=== PATIENT | female | born 1995 | race Caucasian/White ===

== ENCOUNTER 2017-05-14 17:29 | Emergency (ER) | payer OTHER, SELFPAY | END 2017-05-14 18:20 | disposition home or self-care (01) | PROVIDERS: Emergency Provider Emergency Medicine; Family Provider Nurse Practitioner Family; Visit Provider Emergency Medicine | DX: K64.4 Residual hemorrhoidal skin tags (principal); E11.9 Type 2 diabetes mellitus without complications; Z79.4 Long term (current) use of insulin; F17.210 Nicotine dependence, cigarettes, uncomplicated | CPT/HCPCS: 99282 ==

== ENCOUNTER 2017-08-12 13:29 | Emergency (ER) | payer OTHER, SELFPAY ==
[2017-08-12 13:42] VITALS: BP 135/84; PULSE 84; RESP 16; TEMP 37; O2SAT 100; BMI 25.9
--- NOTE | 2017-08-12 13:57 | PC.NURSE ---
glucose is 270
[2017-08-12 14:01] LABS: POC Glucose,Bedside 270 mg/dL (70-110)
--- NOTE | 2017-08-12 14:10 | HMH.EDOD ---
ED Disposition Clinical Impression: Overdose Qualifiers: Encounter type: initial encounter Injury intent: accidental or unintentional Qualified Code(s): T50.901A - Poisoning by unspecified drugs, medicaments and biological substances, accidental (unintentional), initial encounter Disposition: Home, Self-Care Condition on Discharge: Good Referrals: Sebastian Aden MD [Primary Care Provider] - Time of Disposition: 14:48 - Critical Care Critical Care Time: No Attestation: On , the high probability of a clinically significant, sudden or life threatening deterioration of the following system(s) required my full and direct attention, intervention and personal management. The time I documented below is in addition to time spent performing reported procedures but includes the following listed in this critical care notation. Medical Decision Making - Medical Records Medical records reviewed: Yes: I reviewed the patient's medical records. - Akash Inquiry Pt receiving controlled substance: No Akash was queried for this patient: No Vital Signs: 08/12/17 13:42 Temperature 98.6 F Temperature Source Oral Pulse Rate [Right Radial] 84 Respiratory Rate 16 Blood Pressure [Right Arm] 135/84 Blood Pressure Mean [Right Arm] 101 Blood Pressure Source [Right Arm] Manual Cuff/ Doppler Blood Pressure Position [Right Arm] Supine 02 Sat by Pulse Oximetry 100 Oxygen Delivery Method Room Air - Lab Data Lab Results 08/12/17 13:53: POC Glucose 270 Medical Decision Narrative: elevated BS likely due to stimulation of adrenals by stackers, as well as poorly controlled DM Overdose HPI - General Chief Complaint: Overdose Stated Complaint: took stackers Time Seen by Provider: 08/12/17 13:40 Mode of Arrival: Ambulatory Limitations: No Limitations Description of Symptoms (Recalled from ER Triage Doc. by RN): Stayed up all night and had to work today- took too many stackers. . pt reports taking 3 stackers this morning at 1000. Reports dizziness, lightheadedness, fast heartbeat about 1100. denies any symptoms at this time - History of Present Illness complaint: intentional overdose Onset (ago): hour(s) (4) Timing confirmed by: other Intent: other (stimulsation) Context: Intentional Overdose: work problems Treatments Prior to Arrival: none - Related Data Home Medications Medication Instructions Recorded Confirmed folic acid 400 mcg tablet 1 mg PO ONCE 07/13/17 08/12/17 insulin glargine (U-100) 100 10 unit SUB-Q QHS 02/14/18 03/16/18 unit/mL (3 mL) subcutaneous pen insulin lispro (U-100) 100 unit/mL 5 unit SUB-Q QACDINNER 07/13/17 08/12/17 subcutaneous solution multivitamin with minerals tablet 1 tab PO ONCE 07/13/17 08/12/17 Allergies Allergy/AdvReac Type Severity Reaction Status Date / Time No Known Allergies Allergy Verified 08/10/17 09:25 [facility] History I have reviewed the patient's past medical history: Yes Medical History: Reports:: Diabetes Mellitus Type 1 Denies:: Cancer, MRSA Laterality Cases: Bilateral: Tonsillectomy, Other Amputation: No Fractures: No Comment: Nexplanon Removal - Social History Smoking Status: Current every day smoker Tobacco Type: cigarettes # Packs/Day (cigarettes): 1 Alcohol Intake: never - 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ses thoughts of harming self/others: None Suicide Plan Description: No Plan Family Hx:: Diabetes ROS Obtained: Yes All systems reviewed & no additional complaints - Constitutional Constitutional: Reports system reviewed and no additional complaints, except as docu - Eyes Eyes: Reports system reviewed and no additional complaints, except as docu - ENT Ears, Nose, Mouth, and Throat: Reports system reviewed and no additional complaints, except as docu - Cardiovascular Cardiovascular: Reports system reviewed and no additional complaints, except as docu - Respiratory Respiratory: Yes system reviewed and no additional complaints, ex
--- NOTE | 2017-08-12 14:13 | ED_ITS ---
ED Disposition Clinical Impression: Overdose Qualifiers: Encounter type: initial encounter Injury intent: accidental or unintentional Qualified Code(s): T50.901A - Poisoning by unspecified drugs, medicaments and biological substances, accidental (unintentional), initial encounter Disposition: Home, Self-Care Condition on Discharge: Good Referrals: Sebastian Aden MD [Primary Care Provider] - Time of Disposition: 14:48 - Critical Care Critical Care Time: No Attestation: On , the high probability of a clinically significant, sudden or life threatening deterioration of the following system(s) required my full and direct attention, intervention and personal management. The time I documented below is in addition to time spent performing reported procedures but includes the following listed in this critical care notation. Medical Decision Making - Medical Records Medical records reviewed: Yes: I reviewed the patient's medical records. - Akash Inquiry Pt receiving controlled substance: No Akash was queried for this patient: No Vital Signs: 08/12/17 13:42 Temperature 98.6 F Temperature Source Oral Pulse Rate [Right Radial] 84 Respiratory Rate 16 Blood Pressure [Right Arm] 135/84 Blood Pressure Mean [Right Arm] 101 Blood Pressure Source [Right Arm] Manual Cuff/ Doppler Blood Pressure Position [Right Arm] Supine 02 Sat by Pulse Oximetry 100 Oxygen Delivery Method Room Air - Lab Data Lab Results 08/12/17 13:53: POC Glucose 270 Medical Decision Narrative: elevated BS likely due to stimulation of adrenals by stackers, as well as poorly controlled DM Overdose HPI - General Chief Complaint: Overdose Stated Complaint: took stackers Time Seen by Provider: 08/12/17 13:40 Mode of Arrival: Ambulatory Limitations: No Limitations Description of Symptoms (Recalled from ER Triage Doc. by RN): Stayed up all night and had to work today- took too many stackers. . pt reports taking 3 stackers this morning at 1000. Reports dizziness, lightheadedness, fast heartbeat about 1100. denies any symptoms at this time - History of Present Illness complaint: intentional overdose Onset (ago): hour(s) (4) Timing confirmed by: other Intent: other (stimulsation) Context: Intentional Overdose: work problems Treatments Prior to Arrival: none - Related Data Home Medications Medication Instructions Recorded Confirmed folic acid 400 mcg tablet 1 mg PO ONCE 07/13/17 08/12/17 insulin glargine (U-100) 100 10 unit SUB-Q QHS 02/14/18 03/16/18 unit/mL (3 mL) subcutaneous pen insulin lispro (U-100) 100 unit/mL 5 unit SUB-Q QACDINNER 07/13/17 08/12/17 subcutaneous solution multivitamin with minerals tablet 1 tab PO ONCE 07/13/17 08/12/17 Allergies Allergy/AdvReac Type Severity Reaction Status Date / Time No Known Allergies Allergy Verified 08/10/17 09:25 [facility] History I have reviewed the patient's past medical history: Yes Medical History: Reports:: Diabetes Mellitus Type 1 Denies:: Cancer, MRSA Laterality Cases: Bilateral: Tonsillectomy, Other Amputation: No Fractures: No Comment: Nexplanon Removal - Social History Smoking Status: Current every day smoker Tobacco Type: cigarettes # Packs/Day (cigarettes): 1 Alcohol Intake: never - 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
[2017-08-12 14:55] VITALS: BP 128/73; PULSE 86; RESP 16; TEMP 36.8; O2SAT 97
== END 2017-08-12 14:56 | disposition home or self-care (01) ==
PROVIDERS: Emergency Provider Family Medicine; Family Provider Nurse Practitioner Family; PCP Emergency Medicine
DX: T50.901A Poisoning by unspecified drugs, medicaments and biological substances, accidental (unintentional), initial encounter (principal); E10.9 Type 1 diabetes mellitus without complications; Z79.4 Long term (current) use of insulin; F17.210 Nicotine dependence, cigarettes, uncomplicated
CPT/HCPCS: 82962; 99281

== ENCOUNTER → 2019-07-19 15:46 | Outpatient (CLI) | payer OTHER, SELFPAY ==
--- NOTE | 2019-07-19 16:05 | ECG_ITS ---
APPROVED REPORT Exam: Resting ECG HR:79 bpm ECG Measurements Heart Rate 79 AXES VA 144 P 77 QRSd 90 QRS 93 QT 382 T 53 QTc 438 <Conclusion> Normal sinus rhythm Rightward axis Late R-wave progression, unchanged from prior, abnormal EKG Electronically signed by : Keegan Giles, 07/20/2019 07:58:40
[2019-07-19 16:22] LABS: Basophils # 0.2 K/mm3 (0-0.2); Eosinophils # 0.2 K/mm3 (0.0-0.4); Hematocrit 49.8 % (37.0-47.0); Hemoglobin 16.4 g/dL (12.2-16.2); Lymphocytes # 2.9 K/mm3 (0.7-4.5); Lymphocytes % 33.6 % (10-50); Mean Corpuscular HGB Conc 32.9 g/dL (31.8-35.4); Mean Corpuscular Hemoglobin 29.7 pg (27.0-31.2); Mean Corpuscular Volume 90.2 fl (81-99); Mean Platelet Volume 7.2 fl (7.4-10.4); Monocytes # 0.4 K/mm3 (0.1-1.0); Monocytes % 4.2 % (1.7-9.3); Neutrophils # 4.9 K/mm3 (1.8-7.8); Neutrophils % 58.2 % (37.0-80.0); Platelet Count 368 K/mm3 (142-424); Red Blood Count 5.53 M/mm3 (4.20-5.40); Red Cell Distribution Width 11.6 % (11.5-17.5); White Blood Count 8.5 K/mm3 (4.8-10.8)
[2019-07-19 17:29] LABS: Alanine Aminotransferase 13 U/L (12-78); Albumin Level 4.8 g/dl (3.5-5.0); Albumin/Globulin Ratio 1.4 (1.1-1.8); Alkaline Phosphatase 61 U/L (38-126); Anion Gap 14.5 mEq/L (5-15); Aspartate Amino Transferase 17 U/L (14-36); Bilirubin,Total 0.5 mg/dl (0.2-1.3); Blood Urea Nitrogen 11 mg/dl (7-17); Calcium 9.7 mg/dl (8.4-10.2); Carbon Dioxide 28 mmol/L (22.0-30.0); Chloride 98 mmol/L (98-107); Chol/HDL Ratio 3.4 (1-3.5); Cholesterol 162 mg/dl (140-200); Estimated Glomerular Filt Rate 200 ml/min (>60); GFR (African American) 242 ML/MIN (>60); Globulin 3.5 g/dL (1.3-3.2); Glucose 255 mg/dl (74-100); HDL Cholesterol 47 mg/dl (40-60); Potassium 3.5 mmoL/L (3.5-5.1); Sodium 137 mmol/L (136-145); Total Protein,Serum 8.3 g/dl (6.3-8.2); Triglycerides 59 mg/dl (30-150); VLDL Cholesterol 12 mg/dL (0-40)
[2019-07-19 17:43] LABS: Direct LDL Cholesterol 109.32 mg/dL (100-129)
[2019-07-19 17:48] LABS: T4 (Thyroxine) 10.9 ug/dl (5.53-11.0)
[2019-07-19 19:52] LABS: Hemoglobin A1C 8.9 % (4.0-6.0)
[2019-07-21 08:09] LABS: Creatinine, Urine 150.3 mg/dL (Not Estab.); Microalbumin, Urine 21.3 ug/mL (Not Estab.)
[2019-07-21 08:45] LABS: Vitamin D 25 Hydroxy 15.7 ng/mL (30.0-100.0)
== END ==
PROVIDERS: Visit Provider Nurse Practitioner Family
DX: Z01.818 Encounter for other preprocedural examination (principal); E11.9 Type 2 diabetes mellitus without complications; E55.9 Vitamin D deficiency, unspecified; Z79.4 Long term (current) use of insulin
CPT/HCPCS: 36415; 80053; 80061; 82043; 82570; 82652; 83036; 84436; 84443; 85025; 93005

== ENCOUNTER 2019-09-13 16:22 | Emergency (ER) | payer OTHER, SELFPAY ==
[2019-09-13 16:22] VITALS: BP 130/70; PULSE 102; RESP 16; TEMP 37.1; O2SAT 98; BMI 24.0
[2019-09-13 16:51] LABS: Microscopic, Urine URINE MICROSCOPIC (MICROSCOPIC)
[2019-09-13 16:53] LABS: Appearance,Urine CLEAR (Clear); Blood, Urine 3+ (Negative); Color,Urine YELLOW (Yellow); Glucose,Urine (UA) 2+ (Negative); Ketones,Urine 3+ (Negative); Leukocyte Esterase,Urine Negative (Negative); Nitrate,Urine Negative (Negative); Protein,Urine 1+ (Negative); Specific Gravity, Urine >= 1.030 (1.005-1.030); Urobilinogen,Urine 0.2 EU/dl (0.2)
[2019-09-13 16:54] LABS: Chloride 99 mmol/L (98-107); Potassium 3.3 mmoL/L (3.5-5.1); Sodium 138 mmol/L (136-145)
[2019-09-13 16:55] LABS: Urine Pregnancy, HCG Qual. Negative (Negative)
[2019-09-13 16:57] LABS: Alanine Aminotransferase 18 U/L (12-78); Albumin Level 5.1 g/dl (3.5-5.0); Albumin/Globulin Ratio 1.2 (1.1-1.8); Alkaline Phosphatase 69 U/L (38-126); Anion Gap 14.3 mEq/L (5-15); Aspartate Amino Transferase 24 U/L (14-36); Basophils # 0.1 K/mm3 (0-0.2); Basophils % 0.7 % (0.1-2.0); Bilirubin,Total 0.7 mg/dl (0.2-1.3); Blood Urea Nitrogen 15 mg/dl (7-17); Carbon Dioxide 28 mmol/L (22.0-30.0); Creatinine Clearance Estimated 177 mL/min (50-200); Eosinophils # 0.1 K/mm3 (0.0-0.4); Eosinophils % 0.4 % (0.1-12.0); Estimated Glomerular Filt Rate 154 ml/min (>60); GFR (African American) 187 ML/MIN (>60); Globulin 4.1 g/dL (1.3-3.2); Hematocrit 47.3 % (37.0-47.0); Hemoglobin 15.9 g/dL (12.2-16.2); Lymphocytes # 2.3 K/mm3 (0.7-4.5); Lymphocytes % 17.7 % (10-50); Mean Corpuscular HGB Conc 33.7 g/dL (31.8-35.4); Mean Corpuscular Hemoglobin 29.8 pg (27.0-31.2); Mean Corpuscular Volume 88.4 fl (81-99); Mean Platelet Volume 7.5 fl (7.4-10.4); Monocytes # 0.7 K/mm3 (0.1-1.0); Monocytes % 5.3 % (1.7-9.3); Neutrophils # 9.9 K/mm3 (1.8-7.8); Neutrophils % 75.9 % (37.0-80.0); Platelet Count 359 K/mm3 (142-424); Red Blood Count 5.35 M/mm3 (4.20-5.40); Red Cell Distribution Width 11.5 % (11.5-17.5); Total Protein,Serum 9.2 g/dl (6.3-8.2)
[2019-09-13 16:58] LABS: Calcium 9.9 mg/dl (8.4-10.2); Glucose 211 mg/dl (74-100)
[2019-09-13 17:00] LABS: Acetone, Serum (Rapid) Small (None Detect); Bilirubin,Urine Negative (Negative); RBC,Urine 50-100 #/hpf (0-3)
[2019-09-13 17:01] LABS: Amorphous Sediment,Urine 2+ /lpf; Amylase 40 U/L (30-110); Lipase 10 U/L (23-300)
[2019-09-13 17:07] LABS: Benzodiazepines Screen,Urine Negative ng/ml (<200)
[2019-09-13 17:08] LABS: Barbiturates Screen,Urine Negative ng/ml (<200)
[2019-09-13 17:11] LABS: Cannabinoid Screen,Urine Positive ng/ml (<50); Cocaine Screen,Urine Negative ng/ml (<300)
[2019-09-13 17:12] LABS: Methadone Screen,Urine Negative ng/ml (<300); Opiate Screen,Urine Negative ng/ml (<300)
[2019-09-13 17:13] LABS: Phencyclidine Screen,Urine Negative ng/ml (<25)
--- NOTE | 2019-09-13 17:14 | HMH.EDGENADL ---
ED Disposition Clinical Impression: Dehydration Vomiting Qualifiers: Vomiting type: unspecified Vomiting Intractability: intractable Nausea presence: with nausea Qualified Code(s): R11.2 - Nausea with vomiting, unspecified Disposition: Home, Self-Care Condition on Discharge: Good Instructions: DI for Vomiting -- Adult, DI for Dehydration -- Adult Additional Instructions: Continue to drink plenty of fluids. Zofran as needed for nausea and vomiting. Additional instructions for VOMITING: See your physician as soon as possible for further evaluation. Return immediately if severe abdominal pain, uncontrollable vomiting, shortness of breath, fever, vomiting of blood or abdominal distention. Prescriptions: Ondansetron [Zofran 4mg ODT] 4 mg PO TIDP PRN #10 tab.rapdis PRN Reason: Nausea And Vomiting Transmission Status: Pending to [facility] Referrals: Mary Lou Jensen APRN [Primary Care Provider] - - Critical Care Critical Care Time: No Attestation: On 09/13/19, the high probability of a clinically significant, sudden or life threatening deterioration of the following system(s) required my full and direct attention, intervention and personal management. The time I documented below is in addition to time spent performing reported procedures but includes the following listed in this critical care notation. Medical Decision Making - Akash Inquiry Pt receiving controlled substance: No Vital Signs: 09/13/19 16:22 Temperature 98.8 F Temperature Source Oral Pulse Rate [Left Radial] 102 H Respiratory Rate 16 Blood Pressure [Right Arm] 130/70 Blood Pressure Mean [Right Arm] 90 Blood Pressure Position [Right Arm] Sitting 02 Sat by Pulse Oximetry 98 Oxygen Delivery Method Room Air - Lab Data Lab Results 09/13/19 16:30: Urine Color Yellow, Urine Appearance Clear, Urine pH 6.0, Ur Specific [place] >= 1.030, Urine Protein 1+, Urine Glucose (UA) 2+, Urine Ketones 3+, Urine Blood 3+, Urine Nitrate Negative, Urine Bilirubin Negative, Urine Urobilinogen 0.2, Ur Leukocyte Esterase Negative, Urine RBC 50-100, Urine WBC 3-5, Ur Squamous Epith Cells 10-20, Amorphous Sediment 2+, Urine Bacteria None 09/13/19 16:30: WBC 13.0 H, RBC 5.35, Hgb 15.9, Hct 47.3 H, MCV 88.4, MCH 29.8, MCHC 33.7, RDW 11.5, Plt Count 359, MPV 7.5, Neut % (Auto) 75.9, Lymph % (Auto) 17.7, [place] % (Auto) 5.3, Eos % (Auto) 0.4, Baso % (Auto) 0.7, Neut # (Auto) 9.9 H, Lymph # (Auto) 2.3, [place] # (Auto) 0.7, Eos # (Auto) 0.1, Baso # (Auto) 0.1 09/13/19 16:30: Sodium 138, Potassium 3.3 L, Chloride 99, Carbon Dioxide 28, Anion Gap 14.3, BUN 15, Creatinine 0.50 L, Estimated Creat Clear 177, Estimated GFR 154, Est GFR ( Amer) 187, Glucose 211 H, Calcium 9.9, Total Bilirubin 0.7, AST 24, ALT 18, Alkaline Phosphatase 69, Total Protein 9.2 H, Albumin 5.1 H, Globulin 4.1 H, Albumin/Globulin Ratio 1.2 09/13/19 16:30: Urine HCG, Qual Negative 09/13/19 16:30: Urine Opiates Screen Negative, Urine Methadone Screen Negative, Ur Barbituates Screen Negative, Ur Phencyclidine Scrn Negative, Ur Amphetamines Screen , U Benzodiazepines Scrn Negative, Urine Cocaine Screen Negative, U Marijuana (THC) Screen Positive H 09/13/19 16:30: Acetone Level Small 09/13/19 16:30: Amylase 40, Lipase 10 L 09/13/19 16:48: VBG pH 7.33, VBG pCO2 47.2, VBG pO2 47.6 H, VBG HCO3 24.4, VBG Total CO2 25.8, VBG O2 Saturation 86.3 H, VBG Base Excess -1.5 Result diagrams: 09/13/19 16:30 09/13/19 16:30 Orders (Tests/Meds): ED MEDICATIONS Generic Name Dose Route Start Last Admin Trade Name Freq PRN Reason Stop Dose Admin Sodium Chloride 1,000 mls @ 999 mls/hr 09/13/19 17:00 09/13/19 17:03 Sod Chlor 0.9% 1000ml Bag IV 09/13/19 18:00 999 mls/hr .Q1H1M KING Administration - Reevaluation(s) Time: 17:27 Reevaluation #1: Feels much better now. Nausea resolved. No abdominal pain. General Adult HPI - General Chief complaint: Abdominal Pain Stated complaint: We
[2019-09-13 17:18] LABS: VBG Base Excess -1.5 mmol/L (-2.4-2.3); VBG HCO3 24.4 mmol/L (23-30); VBG Oxygen Saturation 86.3 % (50-70); VBG PCO2 47.2 mmol/L (35-51); VBG PH 7.33 mmol/L (7.31-7.41); VBG PO2 47.6 mmol/L (28-40); VBG Total CO2 25.8 mmol/L (23-27)
[2019-09-13 18:11] VITALS: BP 110/65; PULSE 88; RESP 16; TEMP 36.6; O2SAT 98
[2019-09-16 17:45] LABS: Amphetamine Positive (.); Amphetamines Positive (.); Methamphetamine Positive (.)
[2019-09-16 19:30] LABS: Amphetamine (GC/MS) 1512 ng/mL (Cutoff=500); Methamphetamine (GC/MS) >4000 ng/mL (Cutoff=500)
== END 2019-09-13 18:38 | disposition home or self-care (01) ==
PROVIDERS: Emergency Provider Emergency Medicine; PCP Nurse Practitioner Family
DX: E86.0 Dehydration (principal); F12.10 Cannabis abuse, uncomplicated; E10.9 Type 1 diabetes mellitus without complications; Z79.4 Long term (current) use of insulin; Z79.899 Other long term (current) drug therapy
CPT/HCPCS: 80053; 80305; 80324; 81001; 81025; 82009; 82150; 82803; 83690; 85025; 96365; 96375; 99282; J2405

== ENCOUNTER → 2019-10-18 13:02 | Outpatient (CLI) | payer OTHER, SELFPAY | LOC: LAB 13:02 → LAB.DROPOF 13:02 | PROVIDERS: Visit Provider Nurse Practitioner Family | DX: N89.8 Other specified noninflammatory disorders of vagina (principal) | CPT/HCPCS: 87210 ==

== ENCOUNTER 2019-12-22 09:42 | Emergency (ER) | payer OTHER, SELFPAY ==
--- NOTE | 2019-12-22 09:49 | HMH.EDGENADL ---
ED Disposition Clinical Impression: Edema of right eyelid Hordeolum external Qualifiers: Laterality: right Eyelid: upper Qualified Code(s): H00.011 - Hordeolum externum right upper eyelid Disposition: Home, Self-Care Condition on Discharge: Fair Instructions: DI for Hordeolum Additional Instructions: Keflex as prescribed. Warm compresses 10 minutes 4-5 times a day. 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 Jose at [facility]. Return to the emergency room if fever greater than 100 degrees, increasing swelling or pain, unable to open eye, change in vision or loss of vision. Prescriptions: cephALEXin [Keflex 500mg Cap] 500 mg PO QID #40 cap Transmission Status: Sent to [facility] Referrals: Mary Lou Jensen APRN [Primary Care Provider] - - Critical Care Critical Care Time: No Attestation: On 12/22/19, the high probability of a clinically significant, sudden or life threatening deterioration of the following system(s) required my full and direct attention, intervention and personal management. The time I documented below is in addition to time spent performing reported procedures but includes the following listed in this critical care notation. Medical Decision Making - Akash Inquiry Pt receiving controlled substance: No Vital Signs: 12/22/19 09:52 Temperature 98.1 F Temperature Source Oral Pulse Rate [Radial] 90 Respiratory Rate 17 Blood Pressure [Right Arm] 128/81 Blood Pressure Mean [Right Arm] 96 Blood Pressure Source [Right Arm] Automatic Cuff Blood Pressure Position [Right Arm] Sitting 02 Sat by Pulse Oximetry 99 Oxygen Delivery Method Room Air Orders (Tests/Meds): ED MEDICATIONS Discontinued Medications Generic Name Dose Route Start Last Admin Trade Name Saúlq PRN Reason Stop Dose Admin Cephalexin HCl 500 mg 12/22/19 10:00 12/22/19 10:03 Cephalexin 500mg Capsule PO 12/22/19 10:01 500 mg ONCE ONE Administration Protocol Medical Decision Narrative: Recommended injection of Rocephin to begin treatment, patient refuses. General Adult HPI - General Stated complaint: right eye swollen Time Seen by Provider: 12/22/19 09:52 - History of Present Illness HPI narrative: Patient complains of pain and swelling of her right upper eyelid. She says it began yesterday and at that time there was some redness and irritation and pain isolated to one area of the margin of the lid to the right of the midpoint of the lid. She thought she was developing a stye. There has been no pointing or benavides visible. When she woke this morning the whole lid was swollen. No trauma. No fever. The patient is a diabetic. 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 - Related Data Home Medications Medication Instructions Recorded Confirmed multivitamin with minerals 1 tab PO ONCE 07/13/17 10/18/19 folic acid 400 mcg tablet 1 mg PO DAILY tab 10/31/17 10/18/19 amitriptyline 10 mg tablet 10 mg PO DAILY tab 07/19/19 10/18/19 Previous Rx's Medication Instructions Recorded insulin syringe-needle U-100 0.5 See Dose Instructions .ROUTE 08/30/17 mL 31 gauge x 10/12 .MEDSUPPLY #90 each insulin glargine 100 unit/mL (3 47 unit SUB-Q QHS #15 ml 12/07/17 mL) subcutaneous pen ergocalciferol (vitamin D2) 1,250 50,000 unit PO QWEEK #7 cap 07/23/19 mcg (50,000 unit) capsule Ondansetron [Zofran 4mg ODT] 4 mg PO TIDP PRN #10 tab.rapdis 09/13/19 metronidazole 0.75 % vaginal gel 1 appful VAGINAL DAILY 5 Days #70 g 10/18/19 levothyroxine 25 mcg tablet 25 mcg PO DAILY #90 tab 11/09/19 cephALEXin [Keflex 500mg Cap] 500 mg PO QID #40 cap 12/22/19 Allergies Allergy/AdvReac Type Severity Reaction Status Date / Time No Known Allergies Allergy Verified 10/18/19 10:49 [facility] History - Hepatitis A Screen Attestation statement:: This patient has been screened for Hepatitis A risk fa
[2019-12-22 09:52] VITALS: BP 128/81; PULSE 90; RESP 17; TEMP 36.7; O2SAT 99; BMI 26.4
[2019-12-22 10:13] VITALS: BP 128/81; PULSE 90; RESP 17; TEMP 36.7; O2SAT 99
== END 2019-12-22 10:14 | disposition home or self-care (01) ==
PROVIDERS: Emergency Provider Emergency Medicine; PCP Nurse Practitioner Family
DX: H00.011 Hordeolum externum right upper eyelid (principal); E10.9 Type 1 diabetes mellitus without complications; Z79.4 Long term (current) use of insulin; F17.210 Nicotine dependence, cigarettes, uncomplicated; Z79.899 Other long term (current) drug therapy; F41.8 Other specified anxiety disorders
CPT/HCPCS: 99281

== ENCOUNTER 2020-09-12 16:58 | Inpatient (IN) | payer OTHER, SELFPAY ==
[2020-09-12] VITALS (11 sets, daily range): BP systolic 106–138; BP diastolic 43–86; PULSE 112–131; RESP 12–30; TEMP 37.2; O2SAT 95–100; BMI 26.4; BMI 25.6; BMI 27.3
[2020-09-12 17:33] LABS: Microscopic, Urine URINE MICROSCOPIC (MICROSCOPIC)
[2020-09-12 17:35] LABS: Appearance,Urine CLEAR (Clear); Bilirubin,Urine Negative (Negative); Blood, Urine TRACE-I (Negative); Color,Urine YELLOW (Yellow); Glucose,Urine (UA) 2+ (Negative); Ketones,Urine 3+ (Negative); Leukocyte Esterase,Urine Negative (Negative); Nitrate,Urine Negative (Negative); Protein,Urine Negative (Negative); Specific Gravity, Urine >= 1.030 (1.005-1.030); Urobilinogen,Urine 0.2 EU/dl (0.2)
[2020-09-12 17:36] LABS: Basophils # 0.1 K/mm3 (0-0.2); Basophils % 0.4 % (0.1-2.0); Eosinophils # 0.1 K/mm3 (0.0-0.4); Eosinophils % 0.3 % (0.1-12.0); Hematocrit 48.5 % (37.0-47.0); Lymphocytes % 2.9 % (10-50); Mean Corpuscular Hemoglobin 29.7 pg (27.0-31.2); Mean Corpuscular Volume 90.2 fl (81-99); Mean Platelet Volume 7.5 fl (7.4-10.4); Monocytes # 1.1 K/mm3 (0.1-1.0); Monocytes % 3.2 % (1.7-9.3); Neutrophils # 32.2 K/mm3 (1.8-7.8); Neutrophils % 93.2 % (37.0-80.0); Platelet Count 396 K/mm3 (142-424); Red Blood Count 5.37 M/mm3 (4.20-5.40); Red Cell Distribution Width 11.9 % (11.5-17.5); White Blood Count 34.5 K/mm3 (4.8-10.8)
[2020-09-12 17:38] LABS: Urine Pregnancy, HCG Qual. Negative (Negative)
[2020-09-12 17:43] LABS: MANUAL DIFFERENTIAL MANUAL DIFFERENTIAL (MANUAL DIFF)
--- NOTE | 2020-09-12 17:45 | CT_ITS ---
PROCEDURE: CT ABDOMEN PELVIS W CON CLINICAL INDICATION: abdominal pain Abdominal pain with nausea vomiting COMPARISON: CT ABDPELW/O CT ABD PELVIS W/O CONTRAST from 01/20/2013 TECHNIQUE: IV Contrast: 75ML Isovue 370 Oral Contrast None Axial images obtained with sagittal and coronal reformats. All CT scans at the facility use one or more dose reduction, viz: automated exposure control, ma/kV adjustment per patient size (including targeted exams where dose is matched to indication, i.e. head), or iterative reconstruction technique. FINDINGS: LOWER THORAX: No acute finding ABDOMEN & PELVIS: There is an ill-defined mass of the right hepatic lobe inferiorly measuring approximately 3 point cm. Etiology indeterminate. This was present 01/20/2013exam exam. Consider MRI with hemangioma protocol for further evaluation. The liver has an otherwise unremarkable appearance. The spleen, adrenal glands, have an unremarkable appearance. Pancreas is somewhat smaller than expected for patient's age. In the mid aspect of the right kidney there is an oval area of decreased density with some peripheral enhancement measuring approximately 1.8 x 1 cm. No hydronephrosis. No renal or ureteral calculi. There are few small nodes in the right lower quadrant and mesenteries. No evidence of appendicitis. No intestinal obstruction or free air. There is a small amount of fluid in the pelvis 1.8 cm hypodensity is present in the left ovary with peripheral enhancement suggesting a small left corpus luteum cyst. No acute bony findings. Increased density in the subcutaneous region in both right and left abdominal wall which may be due to recent injections IMPRESSION: 1. Indeterminate lesion of the right hepatic lobe ill-defined at approximately 4 cm. Suggest MRI with hemangioma protocol for further evaluation. 2. Ring-enhancing lesion of the right kidney central aspect possibly due to small renal abscess. This could also represent volume averaging artifact from a vertically oriented calyx however no other calyces have this appearance. This may also be better evaluated with MRI along with the liver. Lesions in both the liver and kidney raise the possibility infection/developing abscess versus metastatic disease. Follow-up suggested. 3. Trace free fluid in the pelvis with ring-like enhancement of left ovarian cyst suggesting recent ovulation. Dictated by: Sly Gutierrez MD 09/13/2020 11:03 Sly Gutierrez MD in [place] 09/13/2020 11:03
[2020-09-12 17:46] LABS: Chloride 99 mmol/L (98-107); Sodium 135 mmol/L (136-145)
--- NOTE | 2020-09-12 17:46 | HMH.EDGENADL ---
ED Disposition Clinical Impression: Hepatic adenoma DKA (diabetic ketoacidoses) Qualifiers: Diabetes mellitus type: type 1 Diabetes mellitus complication detail: without coma Qualified Code(s): E10.10 - Type 1 diabetes mellitus with ketoacidosis without coma Disposition: Admitted As Inpatient Condition on Discharge: Serious Time of Disposition: 20:09 - Critical Care Critical Care Time: Yes (35) Attestation: On 09/12/20, the high probability of a clinically significant, sudden or life threatening deterioration of the following system(s) required my full and direct attention, intervention and personal management. The time I documented below is in addition to time spent performing reported procedures but includes the following listed in this critical care notation. Total Critical Care Time: 35 Vital system(s) involved:: Circulatory Failure, Metabolic Failure My critical care processes included: Assessment & monitoring of V/S, Initial and Re-exams, Data Review/Interpretation, Coordinating Care, Medication Orders and management, Documentation Medical Decision Making - Medical Records Medical records reviewed: Yes: I reviewed the patient's medical records. - Akash Inquiry Pt receiving controlled substance: No Vital Signs: 09/12/20 16:59 09/12/20 18:55 09/12/20 19:00 Temperature 99 F Temperature Source Oral Pulse Rate 116 H 112 H Pulse Rate [Radial] 121 H Respiratory Rate 12 21 25 H Blood Pressure 123/60 130/63 Blood Pressure [Right Arm] 131/75 Blood Pressure Mean [Right Arm] 93 Blood Pressure Source Automatic Cuff Automatic Cuff Blood Pressure Position Supine 02 Sat by Pulse Oximetry 99 99 100 Oxygen Delivery Method Room Air Room Air Room Air - Lab Data Lab Results 09/12/20 17:05: Urine Color Yellow, Urine Appearance Clear, Urine pH 6.0, Ur Specific [place] >= 1.030, Urine Protein Negative, Urine Glucose (UA) 2+, Urine Ketones 3+, Urine Blood Trace-i, Urine Nitrate Negative, Urine Bilirubin Negative, Urine Urobilinogen 0.2, Ur Leukocyte Esterase Negative, Urine RBC Occasional, Urine WBC None, Ur Squamous Epith Cells 20-50, Amorphous Sediment 1+, Urine Bacteria None 09/12/20 17:05: Urine HCG, Qual Negative 09/12/20 17:25: Acetone Level Large 09/12/20 17:27: WBC 34.5 H*, RBC 5.37, Hgb 16.0, Hct 48.5 H, MCV 90.2, MCH 29.7, MCHC 33.0, RDW 11.9, Plt Count 396, MPV 7.5, Neut % (Auto) 93.2 H, Lymph % (Auto) 2.9 L, [place] % (Auto) 3.2, Eos % (Auto) 0.3, Baso % (Auto) 0.4, Neut # (Auto) 32.2 H, Lymph # (Auto) 1.0, [place] # (Auto) 1.1 H, Eos # (Auto) 0.1, Baso # (Auto) 0.1, Total Counted 100, Neutrophils % (Manual) 84 H, Lymphocytes % (Manual) 9 L, Monocytes % (Manual) 7, Platelet Estimate Normal, RBC Morphology Normal 09/12/20 17:27: Sodium 135 L, Potassium 4.6, Chloride 99, Carbon Dioxide 7 L*, Anion Gap 33.6 H, BUN 17, Creatinine 0.70, Estimated Creat Clear 138, Estimated GFR 104, Est GFR ( Amer) 125, Glucose 477 H*, Calcium 10.3 H, Total Bilirubin 0.8, AST 30, ALT 22, Alkaline Phosphatase 135 H, Total Protein 9.5 H, Albumin 5.4 H, Globulin 4.1 H, Albumin/Globulin Ratio 1.3, Lipase < 10 L 09/12/20 17:44: VBG pH 7.12 L, VBG pCO2 33.4 L, VBG pO2 53.5 H, VBG HCO3 10.7 L, VBG Total CO2 11.7 L, VBG O2 Saturation 84.2 H, VBG Base Excess -18.6 L 09/12/20 18:31: Sodium 133 L, Potassium 5.1, Chloride 102, Carbon Dioxide 8 L* D, Anion Gap 28.1 H, BUN 16, Creatinine 0.70, Estimated Creat Clear 138, Estimated GFR 104, Est GFR ( Amer) 125, Glucose 448 H*, Calcium 8.9 D, Acetone Level Small Result diagrams: 09/12/20 17:27 09/12/20 18:31 Orders (Tests/Meds): ED MEDICATIONS Generic Name Dose Route Start Last Admin Trade Name Freq PRN Reason Stop Dose Admin Dextrose 50 ml 09/12/20 18:10 Dextrose 50% 50ml Syringe (Crash Cart) IVP 10/12/20 18:09 NEEDED PRN Per DKA Protocol Sodium Chloride 1,000 mls @ 999 mls/hr 09/12/20 17:15 09/12/20 17:31 Sod Chlor 0.9% 1000ml Bag IV 09/12/20 18:15 99
[2020-09-12 17:47] LABS: Potassium 4.6 mmoL/L (3.5-5.1)
[2020-09-12 17:48] LABS: Amorphous Sediment,Urine 1+ /lpf; RBC,Urine Occasional #/hpf (0-3); Squamous Epithelial Cell,Urine 20-50 #/hpf (0-5)
[2020-09-12 17:49] LABS: Alanine Aminotransferase 22 U/L (12-78); Albumin Level 5.4 g/dl (3.5-5.0); Alkaline Phosphatase 135 U/L (38-126); Aspartate Amino Transferase 30 U/L (14-36); Bilirubin,Total 0.8 mg/dl (0.2-1.3); Blood Urea Nitrogen 17 mg/dl (7-17); Calcium 10.3 mg/dl (8.4-10.2); Creatinine Clearance Estimated 138 mL/min (50-200); Estimated Glomerular Filt Rate 104 ml/min (>60); GFR (African American) 125 ML/MIN (>60); Lipase < 10 U/L (23-300); Total Protein,Serum 9.5 g/dl (6.3-8.2)
[2020-09-12 17:50] LABS: Albumin/Globulin Ratio 1.3 (1.1-1.8); Globulin 4.1 g/dL (1.3-3.2)
[2020-09-12 17:52] LABS: Lymphocytes % 9 % (10-50); Monocytes % 7 % (2-9); Neutrophils % 84 % (42-76); Platelet Estimate Normal; RBC Morphology Normal; Total Cells Counted 100
[2020-09-12 17:58] LABS: Anion Gap 33.6 mEq/L (5-15); Carbon Dioxide 7 mmol/L (22.0-30.0); Glucose 477 mg/dl (74-100)
[2020-09-12 17:59] LABS: VBG Base Excess -18.6 mmol/L (-2.4-2.3); VBG HCO3 10.7 mmol/L (23-30); VBG Oxygen Saturation 84.2 % (50-70); VBG PCO2 33.4 mmol/L (35-51); VBG PO2 53.5 mmol/L (28-40); VBG Total CO2 11.7 mmol/L (23-27)
--- NOTE | 2020-09-12 18:00 | PC.NURSE ---
critical vbg results reported to LEANNE QUIROS at this time
[2020-09-12 18:01] LABS: VBG PH 7.12 mmol/L (7.31-7.41)
[2020-09-12 18:03] LABS: Acetone, Serum (Rapid) Large (None Detect)
--- NOTE | 2020-09-12 18:39 | PC.NURSE ---
boiler operators supervisor paging dr. sinha
[2020-09-12 18:41] LABS: Chloride 102 mmol/L (98-107); Potassium 5.1 mmoL/L (3.5-5.1); Sodium 133 mmol/L (136-145)
[2020-09-12 18:44] LABS: Anion Gap 28.1 mEq/L (5-15); Blood Urea Nitrogen 16 mg/dl (7-17); Creatinine Clearance Estimated 138 mL/min (50-200); Estimated Glomerular Filt Rate 104 ml/min (>60); GFR (African American) 125 ML/MIN (>60)
[2020-09-12 18:49] LABS: Carbon Dioxide 8 mmol/L (22.0-30.0)
[2020-09-12 18:50] LABS: Glucose 448 mg/dl (74-100)
--- NOTE | 2020-09-12 18:53 | PC.NURSE ---
carrier operator paging dr. sinha again r/t no call back
--- NOTE | 2020-09-12 18:53 | PC.NURSE ---
butane compressor operator paging dr. sinha
[2020-09-12 18:57] LABS: Acetone, Serum (Rapid) Small (None Detect)
[2020-09-12 19:02] LABS: Adenovirus,PCR Not Detected (NotDetected); Bordetella Pertussis Not Detected (NotDetected); Chlamydophila Pneumoniae, PCR Not Detected (NotDetected); Coronavirus 19, PCR Not Detected (NotDetected); Coronavirus 229E Not Detected (NotDetected); Coronavirus NL63 Not Detected (NotDetected); Coronavirus OC43 Not Detected (NotDetected); Coronovirus HKU1,PCR Not Detected (NotDetected); Human Metapneumovirus Not Detected (NotDetected); Influenza A, PCR Not Detected (NotDetected); Influenza AH1, 2009 Not Detected (NotDetected); Influenza AH1, PCR Not Detected (NotDetected); Influenza AH3,PCR Not Detected (NotDetected); Influenza B, PCR Not Detected (NotDetected); Mycoplasma Pneumoniae, PCR Not Detected (NotDetected); Parainfluenza 1, PCR Not Detected (NotDetected); Parainfluenza 2, PCR Not Detected (NotDetected); Parainfluenza 3, PCR Not Detected (NotDetected); Parainfluenza 4, PCR Not Detected (NotDetected); Respiratory Syncytial Virus Not Detected (NotDetected); Rhinovirus/Enterovirus Not Detected (NotDetected)
--- NOTE | 2020-09-12 19:03 | PC.NURSE ---
coagulation operator paging dr. sinha again at this time r/t no call back
--- NOTE | 2020-09-12 19:13 | PC.NURSE ---
LEANNE QUIROS speaking with Dr. Suero at this time
[2020-09-12 19:49] LABS: Calcium 8.9 mg/dl (8.4-10.2)
[2020-09-12 20:09] LABS: Chloride 104 mmol/L (98-107); Potassium 4.6 mmoL/L (3.5-5.1); Sodium 136 mmol/L (136-145)
[2020-09-12 20:12] LABS: Anion Gap 30.6 mEq/L (5-15); Blood Urea Nitrogen 16 mg/dl (7-17); Calcium 9.4 mg/dl (8.4-10.2); Creatinine Clearance Estimated 138 mL/min (50-200); Estimated Glomerular Filt Rate 104 ml/min (>60); GFR (African American) 125 ML/MIN (>60); Glucose 390 mg/dl (74-100)
[2020-09-12 20:14] LABS: Carbon Dioxide 6 mmol/L (22.0-30.0)
[2020-09-12 20:18] LABS: POC Glucose,Bedside 353 (70-110)
[2020-09-12 20:21] LABS: Acetone, Serum (Rapid) Small (None Detect)
[2020-09-12 21:16] LABS: POC Glucose,Bedside 294 (70-110)
--- NOTE | 2020-09-12 21:29 | PC.NURSE ---
I spoke with Yaya in Pharmacy with the decreasing FSBS on pt and he agrees with decreasing Insulin gtt to 3 units an hour and re-evaluate pt's FSBS at 2200. Insulin gtt at 3 units and hour.
--- NOTE | 2020-09-12 21:50 | HMH.HP ---
*Admission Date: 09/12/20 *Chief complaint: vomiting *History of present illness: this insulin -dependant diabetic presented to the ed with vomiting and not feeling [id number]old female presenting to the emergency department abdominal pain, nausea, vomiting, diarrhea. Symptoms started this morning. She has crampy, diffuse abdominal pain. It hurts in her right upper quadrant, left upper quadrant, lower abdomen. She has had multiple episodes of vomiting, at least 5-7. Vomit is nonbloody, nonbilious. She also said diarrhea. It is brownish in color. No blood. She has type 1 diabetes. Blood glucose was 230. Having difficulty tolerating oral intake. She felt well yesterday. No fevers, chills, dysuria. Denies concern for . No vaginal discharge. She started new medications yesterday, from her psychiatrist. Started Rexulti and Pristiq. She has had bad reactions to these medications in the past n summary this is a 25-year-old female with history of type 1 diabetes presenting to the emergency department with abdominal pain, vomiting, diarrhea. Patient clinically stable on arrival. She is tachycardic to 121. Concern for hyperglycemia, diabetic ketoacidosis, intra-abdominal infection. Will obtain CBC, CMP, VBG, acetone, lipase, urinalysis, test, CT scan of the abdomen and pelvis. Patient given IV fluid bolus. Initial laboratory results are concerning. Patient has hyperglycemia at 422. Acidosis is 7.10. Bicarbonate 10. Overall presentation most consistent with diabetic ketoacidosis. Unsure if there is an infectious source. Patient receiving IV fluids. Potassium is 4.4. Given 20 mEq potassium in the next fluid. Started on insulin drip at 0.1 units/kg/h. Initial dose to 7 units. On reassessment patient feeling somewhat better. Not actively vomiting. Other laboratory results are reassuring. CT scan of the abdomen and pelvis shows an indeterminate 2 cm hepatic mass, possibly an adenoma. Recommended MRI in the future. No acute surgical emergency within the abdomen. pt was admitted for ivf and insulin [facility] History I have reviewed the patient's past medical history: Yes Medical History: Reports:: Diabetes Mellitus Type 1 Denies:: Cancer, MRSA *Have you ever received a pneumonia vaccine?: No *Have you received a flu vaccine this season?: No Laterality Cases: Bilateral: Tonsillectomy, Other Other Surgeries: Yes: Other Amputation: No Fractures: No - *Social History Smoking Status: Current every day smoker Tobacco Type: cigarettes # Packs/Day (cigarettes): 1 Alcohol Intake: never Alcohol Intake Frequency:: holidays/special occasions only Substance Use Type: marijuana, methamphetamine *Occupational Status:: unemployed Housing: other Household Members: family *Travel in the last 8 weeks: None Family Hx:: Diabetes Review of Systems - Review of Systems Review of systems:: pertinent systems reviewed and negative unless documented below - Constitutional Denies fever(s) - Eyes Denies discharge - ENT Denies sore throat - *Cardiovascular Denies chest pain - *Respiratory Denies cough - *Gastrointestinal Reports abdominal pain, Reports nausea, Reports vomiting - *Genitourinary Denies pelvic pain - *Musculoskeletal Denies joint pain - Integumentary/Breasts Denies rash - *Neurologic Denies dizziness, Denies headache(s) - Psychiatric Denies depression Meds Home Medications Medication Instructions Recorded Confirmed Type Insulin Glargine,Hum.rec.anlog 47 unit SUB-Q QHS 09/12/20 09/13/20 History [Basaglar Kwikpen U-100] Insulin Lispro [Humalog] 100 unit SQ AC 09/12/20 09/13/20 History Allergies Allergy/AdvReac Type Severity Reaction Status Date / Time No Known Allergies Allergy Verified 07/16/20 13:33 Exam Vital signs and Labs for Last 24 Hours: Temp Pulse Resp BP Pulse Ox 99 F 122 H 29 H 138/76 98 09/12/20 16:59 09/12/20 20:30 09/12/20 20:30 0
[2020-09-12 22:12] LABS: POC Glucose,Bedside 275 (70-110)
[2020-09-12 23:09] LABS: POC Glucose,Bedside 247 (70-110)
--- NOTE | 2020-09-12 23:51 | PC.NURSE ---
patient up to floor via wheelchair.
[2020-09-13] VITALS (7 sets, daily range): BP systolic 100–116; BP diastolic 54–65; PULSE 100–118; RESP 14–22; TEMP 36.6–36.7; O2SAT 98–100; BMI 27.3
[2020-09-13 00:25] LABS: POC Glucose,Bedside 265 (70-110)
--- NOTE | 2020-09-13 00:42 | PC.NURSE ---
0000 patient arrived to floor via w/c complaining that iv in left ac hurting. iv infiltrated. iv removed, attempted to start new iv x 2 attempts, patient refused any further sticks. patient unsuccessfully attempted to talk spouse into taking her home. patient very vague during admission assessment.patient attached to clinical research monitor, shows st.
[2020-09-13 01:15] LABS: POC Glucose,Bedside 228 (70-110)
--- NOTE | 2020-09-13 03:01 | PC.NURSE ---
0215 patient refused 0215 bmp draw, stated again she wanted to go home. insulin drip remains at 3 units/hr. agreeable to stay with education on need of ivf and insulin but refused lab
--- NOTE | 2020-09-13 03:03 | PC.NURSE ---
awoke patient to do fsbs, patient initially refused after after realizing it was not a needle stick patient was agreeable. insulin drip remains at 3 units/hr. heart rate has slowly been decreasing. now below 110
[2020-09-13 03:05] LABS: POC Glucose,Bedside 234 (70-110)
[2020-09-13 04:54] LABS: POC Glucose,Bedside 172 (70-110)
[2020-09-13 06:07] LABS: Basophils # 0.1 K/mm3 (0-0.2); Basophils % 0.2 % (0.1-2.0); Eosinophils # 0.1 K/mm3 (0.0-0.4); Eosinophils % 0.4 % (0.1-12.0); Hematocrit 38.6 % (37.0-47.0); Lymphocytes # 2.7 K/mm3 (0.7-4.5); Lymphocytes % 8.2 % (10-50); Mean Corpuscular HGB Conc 34.6 g/dL (31.8-35.4); Mean Corpuscular Hemoglobin 29.7 pg (27.0-31.2); Mean Corpuscular Volume 85.9 fl (81-99); Mean Platelet Volume 8.1 fl (7.4-10.4); Monocytes # 1.9 K/mm3 (0.1-1.0); Monocytes % 5.6 % (1.7-9.3); Neutrophils # 28.6 K/mm3 (1.8-7.8); Neutrophils % 85.7 % (37.0-80.0); Platelet Count 359 K/mm3 (142-424); Red Blood Count 4.49 M/mm3 (4.20-5.40); Red Cell Distribution Width 11.9 % (11.5-17.5); White Blood Count 33.4 K/mm3 (4.8-10.8)
--- NOTE | 2020-09-13 06:11 | PC.NURSE ---
able to draw am labs, ivf changed to d 5 ns At 75 and insulin decreased to 1.5 units/hr. patient states she is feeling better. affect much more pleasant
[2020-09-13 06:17] LABS: Chloride 110 mmol/L (98-107); Potassium 4.1 mmoL/L (3.5-5.1); Sodium 139 mmol/L (136-145)
[2020-09-13 06:18] LABS: Hemoglobin 13.3 g/dL (12.2-16.2); MANUAL DIFFERENTIAL MANUAL DIFFERENTIAL (MANUAL DIFF)
[2020-09-13 06:19] LABS: Acetone, Serum (Rapid) Moderate (None Detect)
[2020-09-13 06:20] LABS: Anion Gap 17.1 mEq/L (5-15); Blood Urea Nitrogen 16 mg/dl (7-17); Carbon Dioxide 16 mmol/L (22.0-30.0); Creatinine Clearance Estimated 144 mL/min (50-200); Estimated Glomerular Filt Rate 104 ml/min (>60); GFR (African American) 125 ML/MIN (>60)
[2020-09-13 06:21] LABS: Calcium 8.8 mg/dl (8.4-10.2); Glucose 168 mg/dl (74-100)
[2020-09-13 06:28] LABS: POC Glucose,Bedside 153 (70-110)
--- NOTE | 2020-09-13 07:01 | PC.NURSE ---
results received from am lab work, acetone level redrawn and sent down to be reran
[2020-09-13 07:05] LABS: POC Glucose,Bedside 167 (70-110)
[2020-09-13 07:29] LABS: Acetone, Serum (Rapid) Small (None Detect)
[2020-09-13 08:00] LABS: Lymphocytes % 15 % (10-50); Monocytes % 2 % (2-9); Neutrophils % 83 % (42-76); Platelet Estimate Normal; RBC Morphology Normal; Total Cells Counted 100
--- NOTE | 2020-09-13 08:07 | PC.NURSE ---
Addendum entered by Jennifer Centeno RN 09/13/20 14:16: FSBS @ 1400 - 145, insulin gtt titrated to 1.5 units/hr. Per MD, IVF not changed to D5NS, instead left @ NS @ 125 mls/hr Addendum entered by Jennifer Centeno RN 09/13/20 12:56: FSBS @ 1250 - 164, no changes to insulin gtt. Addendum entered by Jennifer Centeno RN 09/13/20 12:24: FSBS @ 1000 - 215, no changes made to insulin gtt. FSBS @ 1100 - 203, no changes to insulin gtt. Lab draw glucose @ 1145 - 216, no changes to insulin gtt. Addendum entered by Jennifer Centeno RN 09/13/20 09:05: FSBS @ 0900 - 325, insulin gtt increased to 3 units/hr per protocol. Spoke w/ Mary Lou and Dr. Aden, verbal orders for pt to receive 1 L NS bolus x 1 now and for IVF to be changed to NS @ 125 mls/hr. Continue Q1H FSBS. PT resting comfortably. No needs voiced. Original Note: FSBS @ 0800 - 247, per protocol gtt cont @ current infusion rate of 1.5 units/hr. Pt alert, resting in bed, s/o @ bedside. No complaints voiced.
--- NOTE | 2020-09-13 10:58 | HMH.PHAVTE ---
[facility] VTE Monitoring - Patient Demographics Admission date: 09/12/20 Report Date: 09/13/20 Time: 10:59 Allergies/Adverse Reactions: Patient Allergies No Known Allergies Allergy (Verified 07/16/20 13:33) Height: 1.63 m Weight: 72.745 kg Patient Problems: Current Active Problems DKA (diabetic ketoacidoses) (Acute) Hepatic adenoma (Acute) Diabetes mellitus, insulin dependent (IDDM), uncontrolled (Acute) - VTE Risk Labs: VTE Related Lab Results Hgb 13.3 g/dL (12.2-16.2) D 09/13/20 05:55 Hct 38.6 % (37.0-47.0) 09/13/20 05:55 Plt Count 359 K/mm3 (142-424) 09/13/20 05:55 BUN 16 mg/dl (7-17) 09/13/20 05:55 Creatinine 0.70 mg/dl (0.52-1.04) 09/13/20 05:55 Estimated Creat Clear 144 mL/min (50-200) 09/13/20 05:55 VTE Score: 1 VTE Risk Level: Very Low Risk - Prophylaxis VTE Prophylaxis Ordered?: Yes Types of VTE Prophylaxis: TEDS Knee High Location of Applied Device: Bilateral Lower Extremeties
[2020-09-13 12:08] LABS: Chloride 112 mmol/L (98-107); Potassium 3.9 mmoL/L (3.5-5.1); Sodium 137 mmol/L (136-145)
[2020-09-13 12:11] LABS: Anion Gap 12.9 mEq/L (5-15); Blood Urea Nitrogen 12 mg/dl (7-17); Calcium 8.6 mg/dl (8.4-10.2); Carbon Dioxide 16 mmol/L (22.0-30.0); Creatinine Clearance Estimated 201 mL/min (50-200); Estimated Glomerular Filt Rate 153 ml/min (>60); GFR (African American) 185 ML/MIN (>60); Glucose 216 mg/dl (74-100)
[2020-09-13 12:18] LABS: Acetone, Serum (Rapid) Small (None Detect)
--- NOTE | 2020-09-13 13:35 | HMH.ACPN2 ---
Internal Medicine - PN: Subj *Date: 09/13/20 *Time: 08:40 Interval history: pt laying in bed, family at bedside pt states she had been out of her insulin for awhile and was not able to eat or drink due to n/v Exam Vital signs and Labs for Last 24 Hours: Temp Pulse Resp BP Pulse Ox 97.9 F 106 H 14 105/65 L 100 09/13/20 08:00 09/13/20 12:00 09/13/20 12:00 09/13/20 12:00 09/13/20 12:00 Laboratory Results - last 24 hr 09/12/20 17:05: Urine Color Yellow, Urine Appearance Clear, Urine pH 6.0, Ur Specific [place] >= 1.030, Urine Protein Negative, Urine Glucose (UA) 2+, Urine Ketones 3+, Urine Blood Trace-i, Urine Nitrate Negative, Urine Bilirubin Negative, Urine Urobilinogen 0.2, Ur Leukocyte Esterase Negative, Urine RBC Occasional, Urine WBC None, Ur Squamous Epith Cells 20-50, Amorphous Sediment 1+, Urine Bacteria None 09/12/20 17:05: Urine HCG, Qual Negative 09/12/20 17:25: Acetone Level Large 09/12/20 17:27: WBC 34.5 H*, RBC 5.37, Hgb 16.0, Hct 48.5 H, MCV 90.2, MCH 29.7, MCHC 33.0, RDW 11.9, Plt Count 396, MPV 7.5, Neut % (Auto) 93.2 H, Lymph % (Auto) 2.9 L, Delta % (Auto) 3.2, Eos % (Auto) 0.3, Baso % (Auto) 0.4, Neut # (Auto) 32.2 H, Lymph # (Auto) 1.0, Delta # (Auto) 1.1 H, Eos # (Auto) 0.1, Baso # (Auto) 0.1, Total Counted 100, Neutrophils % (Manual) 84 H, Lymphocytes % (Manual) 9 L, Monocytes % (Manual) 7, Platelet Estimate Normal, RBC Morphology Normal 09/12/20 17:27: Sodium 135 L, Potassium 4.6, Chloride 99, Carbon Dioxide 7 L*, Anion Gap 33.6 H, BUN 17, Creatinine 0.70, Estimated Creat Clear 138, Estimated GFR 104, Est GFR ( Amer) 125, Glucose 477 H*, Calcium 10.3 H, Total Bilirubin 0.8, AST 30, ALT 22, Alkaline Phosphatase 135 H, Total Protein 9.5 H, Albumin 5.4 H, Globulin 4.1 H, Albumin/Globulin Ratio 1.3, Lipase < 10 L 09/12/20 17:44: VBG pH 7.12 L, VBG pCO2 33.4 L, VBG pO2 53.5 H, VBG HCO3 10.7 L, VBG Total CO2 11.7 L, VBG O2 Saturation 84.2 H, VBG Base Excess -18.6 L 09/12/20 18:31: Sodium 133 L, Potassium 5.1, Chloride 102, Carbon Dioxide 8 L* D, Anion Gap 28.1 H, BUN 16, Creatinine 0.70, Estimated Creat Clear 138, Estimated GFR 104, Est GFR ( Amer) 125, Glucose 448 H*, Calcium 8.9 D, Acetone Level Small 09/12/20 19:00: Chlamy pneumoniae PCR Not detected, Adenovirus (PCR) Not detected, B. pertussis DNA (PCR) Not detected, Coronavirus OC43 (PCR) Not detected, Coronavirus HKU1 (PCR) Not detected, Coronavirus 229E (PCR) Not detected, SARS-CoV-2 (PCR) Not detected, Coronavirus NL63 (PCR) Not detected, Human Metapneumovir PCR Not detected, Influenza A (H1) PCR Not detected, Influ A (H1N1/09) PCR Not detected, Influenza A (H3) PCR Not detected, Influenza Type A (PCR) Not detected, Influenza Type B (PCR) Not detected, M. pneumoniae (PCR) Not detected, Parainfluenza 1 (PCR) Not detected, Parainfluenza 2 (PCR) Not detected, Parainfluenza 3 (PCR) Not detected, Parainfluenza 4 (PCR) Not detected, RSV (PCR) Not detected, Entero/Rhino (PCR) Not detected 09/12/20 19:57: Sodium 136, Potassium 4.6, Chloride 104, Carbon Dioxide 6 L* D, Anion Gap 30.6 H, BUN 16, Creatinine 0.70, Estimated Creat Clear 138, Estimated GFR 104, Est GFR ( Amer) 125, Glucose 390 H, Calcium 9.4, Acetone Level Small 09/12/20 20:10: POC Glucose 353 H* 09/12/20 21:08: POC Glucose 294 H 09/12/20 22:05: POC Glucose 275 H 09/12/20 23:02: POC Glucose 247 H 09/13/20 00:18: POC Glucose 265 H 09/13/20 01:07: POC Glucose 228 H 09/13/20 02:57: POC Glucose 234 H 09/13/20 04:48: POC Glucose 172 H 09/13/20 05:55: Sodium 139, Potassium 4.1, Chloride 110 H, Carbon Dioxide 16 L D, Anion Gap 17.1 H, BUN 16, Creatinine 0.70, Estimated Creat Clear 144, Estimated GFR 104, Est GFR ( Amer) 125, Glucose 168 H D, Calcium 8.8, Acetone Level Moderate 09/13/20 05:55: WBC 33.4 H*, RBC 4.49, Hgb 13.3 D, Hct 38.6, MCV 85.9, MCH 29.7, MCHC 34.6, RDW 11.9, Plt Count 359, MPV 8.1, Neut % (Auto) 85.7 H, Lymph % (Auto) 8.2 L, Delta % (Auto) 5.6, Eos % (Auto) 0.4, Baso % (Auto) 0.2, Neut
--- NOTE | 2020-09-13 15:40 | HMH.DCSUM ---
General - General Admission date:: 09/12/20 Discharge date: 09/13/20 HPI HPI: this insulin -dependant diabetic presented to the ed with vomiting and not feeling [id number]old female presenting to the emergency department abdominal pain, nausea, vomiting, diarrhea. Symptoms started this morning. She has crampy, diffuse abdominal pain. It hurts in her right upper quadrant, left upper quadrant, lower abdomen. She has had multiple episodes of vomiting, at least 5-7. Vomit is nonbloody, nonbilious. She also said diarrhea. It is brownish in color. No blood. She has type 1 diabetes. Blood glucose was 230. Having difficulty tolerating oral intake. She felt well yesterday. No fevers, chills, dysuria. Denies concern for . No vaginal discharge. She started new medications yesterday, from her psychiatrist. Started Rexulti and Pristiq. She has had bad reactions to these medications in the past n summary this is a 25-year-old female with history of type 1 diabetes presenting to the emergency department with abdominal pain, vomiting, diarrhea. Patient clinically stable on arrival. She is tachycardic to 121. Concern for hyperglycemia, diabetic ketoacidosis, intra-abdominal infection. Will obtain CBC, CMP, VBG, acetone, lipase, urinalysis, test, CT scan of the abdomen and pelvis. Patient given IV fluid bolus. Initial laboratory results are concerning. Patient has hyperglycemia at 422. Acidosis is 7.10. Bicarbonate 10. Overall presentation most consistent with diabetic ketoacidosis. Unsure if there is an infectious source. Patient receiving IV fluids. Potassium is 4.4. Given 20 mEq potassium in the next fluid. Started on insulin drip at 0.1 units/kg/h. Initial dose to 7 units. On reassessment patient feeling somewhat better. Not actively vomiting. Other laboratory results are reassuring. CT scan of the abdomen and pelvis shows an indeterminate 2 cm hepatic mass, possibly an adenoma. Recommended MRI in the future. No acute surgical emergency within the abdomen. pt was admitted for ivf and insulin Hospital Course Hospital Course: Laboratory Tests 09/12/20 09/12/20 09/12/20 17:05 17:05 17:25 WBC RBC Hgb Hct MCV MCH MCHC RDW Plt Count MPV Neut % (Auto) Lymph % (Auto) [place] % (Auto) Eos % (Auto) Baso % (Auto) Neut # (Auto) Lymph # (Auto) [place] # (Auto) Eos # (Auto) Baso # (Auto) Total Counted Neutrophils % (Manual) Lymphocytes % (Manual) Monocytes % (Manual) Platelet Estimate RBC Morphology VBG pH VBG pCO2 VBG pO2 VBG HCO3 VBG Total CO2 VBG O2 Saturation VBG Base Excess Sodium Potassium Chloride Carbon Dioxide Anion Gap BUN Creatinine Estimated Creat Clear Estimated GFR Est GFR ( Amer) Glucose POC Glucose Calcium Total Bilirubin AST ALT Alkaline Phosphatase Total Protein Albumin Globulin Albumin/Globulin Ratio Lipase Urine Color Yellow Urine Appearance Clear Urine pH 6.0 Ur Specific [place] >= 1.030 Urine Protein Negative Urine Glucose (UA) 2+ Urine Ketones 3+ Urine Blood Trace-i Urine Nitrate Negative Urine Bilirubin Negative Urine Urobilinogen 0.2 Ur Leukocyte Esterase Negative Urine RBC Occasional Urine WBC None Ur Squamous Epith Cells 20-50 Amorphous Sediment 1+ Urine Bacteria None Urine HCG, Qual Negative Acetone Level Large Chlamy pneumoniae PCR Adenovirus (PCR) B. pertussis DNA (PCR) Coronavirus OC43 (PCR) Coronavirus HKU1 (PCR) Coronavirus 229E (PCR) SARS-CoV-2 (PCR) Coronavirus NL63 (PCR) Human Metapneumovir PCR Influenza A (H1) PCR Influ A (H1N1/09) PCR Influenza A (H3) PCR Influenza Type A (PCR) Influenza Type B (PCR) M. pneumoniae (PCR) Parainfluenza 1 (PCR)
[2020-09-13 15:51] LABS: POC Glucose,Bedside 203 (70-110)
[2020-09-13 15:51] LABS: POC Glucose,Bedside 124 (70-110)
[2020-09-13 15:51] LABS: POC Glucose,Bedside 247 (70-110)
[2020-09-13 15:51] LABS: POC Glucose,Bedside 145 (70-110)
[2020-09-13 15:51] LABS: POC Glucose,Bedside 215 (70-110)
[2020-09-13 15:51] LABS: POC Glucose,Bedside 164 (70-110)
[2020-09-13 15:51] LABS: POC Glucose,Bedside 245 (70-110)
[2020-09-13 15:51] LABS: POC Glucose,Bedside 325 (70-110)
--- NOTE | 2020-09-13 17:09 | PC.NURSE ---
Addendum entered by Jennifer Centeno RN 09/13/20 17:13: Prior to leaving this nurse did offer to check pt's BS, she refused. Original Note: 1530 - Pt wishing to be DC'd, discussed w/ pt risks of leaving AMA. Pt is A&Ox4, able to make decisions for herself. Pt verbalized understanding of risks of leaving and still wishes to leave. S/O @ bedside. 1536 - E PETR Jensen notified of pt's wish to leave. 1542 - AMA paper reviewed w/ pt and signed. PIV dc'd in RAC. 1708 - Attempted to notify pt of antibiotic script that was sent to [facility] pharmacy, voicemail left for call back on pt's contact #.
== END 2020-09-13 15:50 | disposition left against medical advice (07) | DRG 639 ==
LOC: ER 17:03 → 2ND 20:11
PROVIDERS: Admitting Provider Internal Medicine Adolescent Medicine; Emergency Provider Emergency Medicine; PCP Nurse Practitioner Family; Visit Provider Emergency Medicine
DX: E10.10 Type 1 diabetes mellitus with ketoacidosis without coma (principal)
CPT/HCPCS: 36415; 74177; 80048; 80053; 81001; 81025; 82009; 82803; 82962; 83690; 85007; 85025; 87581; 87633; 87798; 96365; 96366; 96367; 96375; 96376; 99284; J2405; Q9967

== ENCOUNTER → 2020-10-07 09:09 | Outpatient (CLI) | payer OTHER, SELFPAY ==
--- NOTE | 2020-10-07 09:09 | MR_ITS ---
PROCEDURE: MR ABDOMEN WO/W CON CLINICAL INDICATION: hemangioma protocol COMPARISON: CT ABDPELW/O CT ABD PELVIS W/O CONTRAST from 01/20/[address] ABDOMEN PELVIS W CON from 09/12/2020 TECHNIQUE: Routine multiplanar multi echo sequences are performed without gadolinium enhancement. FINDINGS: There is a focal slightly T2 hyperintense focal lesion in the segment 6 of the liver measuring 3.8 x 3.7 centimeters, demonstrates intense enhancement on the arterial phase images. The lesion demonstrates hypointensity to the rest of the liver on venous phase images with central hypoenhancement, likely a central scar. No evidence of washout is demonstrated on the delayed phase images. The lesion is noted to demonstrate similar intensity to the rest of the liver. No evidence of restricted diffusion noted. No other focal liver lesions. No intra or extrahepatic biliary dilation. The gallbladder is unremarkable. The pancreas, adrenal glands and spleen demonstrate no focal abnormality. Focal prominence in the right renal pelvis is again noted, demonstrates similar signal intensity to the rest of the renal parenchyma on multiphasic contrast-enhanced images. 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 No focal mass lesions are noted. No significant interval change is noted compared to the prior studies of January 20, 2013, allowing for technical differences. 6 Please note the images are tailored to evaluate liver lesion. Visualized lungs are clear. IMPRESSION: Slightly T2 hyperintense lesion demonstrates internal its arterial enhancement with delayed enhancement of the central scar. 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 Hepatic adenoma should be considered. Malignancy is less likely. Follow-up CT/MRI of the liver without and with contrast in 3-6 months is recommended to evaluate for size stability. 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 This focal area can be followed up on the subsequent follow-up scan. Dictated by: Flaquita Robles 10/07/2020 14:04 Flaquita Robles in OV 10/07/2020 14:04
[2020-10-07 09:57] LABS: Chloride 101 mmol/L (98-107); Potassium 4.1 mmoL/L (3.5-5.1); Sodium 136 mmol/L (136-145)
[2020-10-07 09:59] LABS: Alanine Aminotransferase 19 U/L (12-78); Alkaline Phosphatase 70 U/L (38-126); Aspartate Amino Transferase 22 U/L (14-36); Bilirubin,Total 0.5 mg/dl (0.2-1.3); Blood Urea Nitrogen 13 mg/dl (7-17); Estimated Glomerular Filt Rate 153 ml/min (>60); GFR (African American) 185 ML/MIN (>60)
[2020-10-07 10:00] LABS: Albumin Level 4.7 g/dl (3.5-5.0); Albumin/Globulin Ratio 1.3 (1.1-1.8); Anion Gap 11.1 mEq/L (5-15); Calcium 9.6 mg/dl (8.4-10.2); Carbon Dioxide 28 mmol/L (22.0-30.0); Chol/HDL Ratio 3.1 (1-3.5); Cholesterol 157 mg/dl (140-200); Globulin 3.6 g/dL (1.3-3.2); Glucose 278 mg/dl (74-100); HDL Cholesterol 51 mg/dl (40-60); Total Protein,Serum 8.3 g/dl (6.3-8.2); Triglycerides 73 mg/dl (30-150); VLDL Cholesterol 15 mg/dL (0-40)
[2020-10-07 10:09] LABS: Basophils # 0.1 K/mm3 (0-0.2); Basophils % 1.6 % (0.1-2.0); Eosinophils # 0.3 K/mm3 (0.0-0.4); Eosinophils % 4.2 % (0.1-12.0); Hematocrit 45.2 % (37.0-47.0); Lymphocytes # 3.1 K/mm3 (0.7-4.5); Lymphocytes % 40.3 % (10-50); Mean Corpuscular HGB Conc 33.2 g/dL (31.8-35.4); Mean Corpuscular Hemoglobin 29.7 pg (27.0-31.2); Mean Corpuscular Volume 89.6 fl (81-99); Mean Platelet Volume 7.6 fl (7.4-10.4); Monocytes # 0.4 K/mm3 (0.1-1.0); Monocytes % 5.6 % (1.7-9.3); Neutrophils # 3.7 K/mm3 (1.8-7.8); Neutrophils % 48.2 % (37.0-80.0); Platelet Count 312 K/mm3 (142-424); Red Blood Count 5.05 M/mm3 (4.20-5.40); White Blood Count 7.7 K/mm3 (4.8-10.8)
[2020-10-07 10:11] LABS: Direct LDL Cholesterol 79.57 mg/dL (100-129)
[2020-10-07 10:14] LABS: Creatinine,Urine Random 140 mg/dL (Not Estab.)
[2020-10-07 10:20] LABS: T4 (Thyroxine) 12.1 ug/dl (5.53-11.0)
[2020-10-07 10:33] LABS: Thyroid Stimulating Hormone 6.28 uIU/mL (0.465-4.68)
[2020-10-07 10:43] LABS: 25-OH Vitamin D, Total 26.5 ng/mL (30-100)
[2020-10-07 10:55] LABS: Hemoglobin A1C 7.7 % (4.0-6.0)
== END ==
PROVIDERS: PCP Nurse Practitioner Family; Visit Provider Nurse Practitioner Family
DX: K76.9 Liver disease, unspecified (principal); E11.9 Type 2 diabetes mellitus without complications; Z79.4 Long term (current) use of insulin
CPT/HCPCS: 36415; 74183; 80053; 80061; 82043; 82306; 82570; 83036; 84436; 84443; 85025; A9576

== ENCOUNTER → 2020-10-13 15:14 | Outpatient (POV) | payer OTHER, SELFPAY | PROVIDERS: Visit Provider Nurse Practitioner Family | DX: Z00.00 Encounter for general adult medical examination without abnormal findings (principal) ==

== ENCOUNTER 2021-04-20 12:34 | Emergency (ER) | payer OTHER, SELFPAY ==
[2021-04-20 13:10] VITALS: BP 115/73; PULSE 72; RESP 19; TEMP 37; O2SAT 98; BMI 25.4
[2021-04-20 13:16] LABS: UTC Pregnancy Test, Urine Positive (Negative)
--- NOTE | 2021-04-20 13:19 | HMH.EDUTC ---
[facility] [place] Disposition Clinical Impression: Positive test Disposition: Home, Self-Care Condition on Discharge: Good Instructions: Eating for Appropriate Weight Gain During , Common Discomforts and Bodily Changes During , Medications and Additional Instructions: Sucking on Peppermint candy may help with nausea and vomiting Follow up with your Family Doctor if needed Call OBGYN and make appointment it may be awhile before they can get you in Return if needed Straight to ER if any life threatening symptoms Prescriptions: Promethazine HCl [Phenergan 12.5mg tablet] 12.5 mg PO Q6H PRN #6 tab PRN Reason: Nausea Transmission Status: Pending to [facility] Referrals: Mary Lou Jensen APRN [Primary Care Provider] - As needed Time of Disposition: 13:30 Medical Decision Making - Akash Inquiry Pt receiving controlled substance: No Akash was queried for this patient: No Vital Signs: 04/20/21 13:10 Temperature 98.6 F Temperature Source Temporal Artery Scan Pulse Rate [Right Brachial] 72 Respiratory Rate 19 Blood Pressure [Right Arm] 115/73 Blood Pressure Mean [Right Arm] 87 Blood Pressure Source [Right Arm] Automatic Cuff Blood Pressure Position [Right Arm] Sitting 02 Sat by Pulse Oximetry 98 Oxygen Delivery Method Room Air - Lab Data Lab Results 04/20/21 13:06: [facility] Clinic Positive - Physician Consults Physician Consulted: Dr Garcia Time: 13:25 Reason -: Obstetrical Eval/Care Comment/Response: Spoke with Staff at Dr Garcia office since patient wanted him to be her OBGYN and discussed what is recommended for N/V for early and they advised Phenergan is recommended and advised can go ahead and order Quant [facility] [place] HPI - General Stated complaint: pregnacy test Time Seen by Provider: 04/20/21 13:19 Mode of Arrival: Ambulatory Source of Information: Patient Limitations: No Limitations Description of Symptoms (Recalled from Triage Doc. by RN): TEST HEENT Symptoms (Recalled from RN notes): No Resp Symptoms (Recalled from RN notes): No Skin Symptoms (Recalled from RN notes): No MS Symptoms (Recalled from RN notes): No Functional Status (Recalled from RN notes): WNL - History of Present Illness Provider Complaint: Patient states that she has been having nausea and vomiting when she wakes up in the morning and states that her breast have been achy States that she was late States that her last period was in Feb but they are irregular so she didnt think anything about it until she took a urine preg at home and it was positive so she came in to get checked - Related Data Previous Rx's Medication Instructions Recorded ergocalciferol (vitamin D2) 1,250 50,000 unit PO QWEEK #7 cap 10/10/20 mcg (50,000 unit) capsule insulin syringe,safetyneedle 0.5 See Rx Instructions .ROUTE 01/30/21 mL 31 gauge x 15/64 .MEDSUPPLY #100 each brexpiprazole 2 mg tablet 2 mg PO DAILY #30 tab 02/18/21 desvenlafaxine succinate 100 mg 100 mg PO DAILY #30 tab 02/18/21 tablet,extended release 24 hr blood-glucose meter,continuous See Rx Instructions .MEDSUPPLY #1 03/09/21 each blood-glucose sensor See Rx Instructions MISCELLANE 03/09/21 .MEDSUPPLY #3 each blood-glucose transmitter See Rx Instructions .MEDSUPPLY #1 03/09/21 each gabapentin 100 mg capsule 100 mg PO BID #60 cap 03/09/21 insulin glargine 100 unit/mL (3 47 unit SQ HS #15 ml 04/17/21 mL) subcutaneous pen insulin lispro 100 unit/mL See Rx Instructions SQ AC #15 ml 04/17/21 subcutaneous cartridge levothyroxine 25 mcg tablet 25 mcg PO DAILY #30 tab 04/17/21 Promethazine HCl [Phenergan 12.5mg 12.5 mg PO Q6H PRN #6 tab 04/20/21 tablet] Allergies Allergy/AdvReac Type Severity Reaction Status Date / Time No Known Allergies Allergy Verified 03/09/21 15:35 - Worker's Comp Is this a Worker's Comp case?: No [facility] History - Hepatitis A Screen Drug use history?: Yes High risk sex
[2021-04-20 13:41] VITALS: BP 115/73; PULSE 72; RESP 19; TEMP 37; O2SAT 99
[2021-04-20 13:57] LABS: HCG Qualitative, Serum Positive (Negative)
[2021-04-20 15:33] LABS: HCG,Quantitative 23118 mIU/ml (0-5.42)
== END 2021-04-20 13:44 | disposition home or self-care (01) ==
PROVIDERS: Emergency Provider Nurse Practitioner; PCP Nurse Practitioner Family
DX: Z32.01 Encounter for pregnancy test, result positive (principal); E10.9 Type 1 diabetes mellitus without complications; Z79.4 Long term (current) use of insulin; F17.210 Nicotine dependence, cigarettes, uncomplicated
CPT/HCPCS: 81025; 84702; 84703; 99202; G0463

== ENCOUNTER → 2021-05-05 11:23 | Outpatient (CLI) | payer OTHER, SELFPAY ==
[2021-05-05 11:54] LABS: Basophils # 0.1 K/mm3 (0-0.2); Basophils % 0.9 % (0.1-2.0); Eosinophils # 0.1 K/mm3 (0.0-0.4); Eosinophils % 0.6 % (0.1-12.0); Hemoglobin 15.2 g/dL (12.2-16.2); Lymphocytes # 1.5 K/mm3 (0.7-4.5); Lymphocytes % 10.8 % (10-50); Mean Corpuscular HGB Conc 34.5 g/dL (31.8-35.4); Mean Corpuscular Hemoglobin 30.3 pg (27.0-31.2); Mean Corpuscular Volume 87.8 fl (81-99); Mean Platelet Volume 7.9 fl (7.4-10.4); Monocytes # 0.3 K/mm3 (0.1-1.0); Monocytes % 2.1 % (1.7-9.3); Neutrophils # 12.1 K/mm3 (1.8-7.8); Neutrophils % 85.6 % (37.0-80.0); Platelet Count 353 K/mm3 (142-424); Red Blood Count 5.01 M/mm3 (4.20-5.40); Red Cell Distribution Width 12.2 % (11.5-17.5); White Blood Count 14.2 K/mm3 (4.8-10.8)
[2021-05-05 12:02] LABS: MANUAL DIFFERENTIAL MANUAL DIFFERENTIAL (MANUAL DIFF)
[2021-05-05 13:30] LABS: Lymphocytes % 14 % (10-50); Monocytes % 1 % (2-9); Neutrophils % 85 % (42-76); Total Cells Counted 100
[2021-05-05 13:34] LABS: Platelet Estimate Normal; RBC Morphology Normal
[2021-05-06 09:12] LABS: HSV 2 IgG, Type Spec <0.91 index (0.00-0.90); Rubella Antibodies, IgG 2.38 index (Immune >0.99)
[2021-05-06 11:13] LABS: HIV Screen 4th Generation wRfx Non Reactive (Non Reactive); Hepatitis B Surface Antigen Negative (Negative); Hepatitis C Antibody 0.1 s/co ratio (0.0-0.9)
[2021-05-06 12:30] LABS: Rapid Plasma Reagin Ab Titer Non Reactive (NonRea<1:1)
== END ==
PROVIDERS: Visit Provider Nurse Practitioner Obstetrics & Gynecology
DX: Z34.90 Encounter for supervision of normal pregnancy, unspecified, unspecified trimester (principal)
CPT/HCPCS: 36415; 85007; 85025; 86592; 86695; 86703; 86762; 86790; 86850; 87340; 87380; G0432

== ENCOUNTER 2021-05-31 05:40 | Emergency (ER) | payer OTHER, SELFPAY ==
[2021-05-31 05:43] VITALS: BP 130/75; PULSE 104; RESP 20; TEMP 37.4; O2SAT 98; BMI 28.6
[2021-05-31 06:16] LABS: Influenza A, PCR Not Detected (NotDetected); Influenza B, PCR Not Detected (NotDetected)
--- NOTE | 2021-05-31 06:19 | HMH.EDGENADL ---
ED Disposition Clinical Impression: COVID-19 Disposition: Home, Self-Care Condition on Discharge: Good Instructions: DI for Diarrhea and Traveler's Diarrhea -- Adult, DI for Diarrhea and Traveler's Diarrhea -- Child, DI for Nausea -- Adult, DI for Nausea -- Child Additional Instructions: He began having more shortness of breath, difficulty breathing please return to the emergency department. Recommend also call your OBs office, discussing your Covid diagnosis with them, they are unsure of how this could affect your . Referrals: Mary Lou Jensen APRN [Primary Care Provider] - - Critical Care Critical Care Time: No Attestation: On 05/31/21, the high probability of a clinically significant, sudden or life threatening deterioration of the following system(s) required my full and direct attention, intervention and personal management. The time I documented below is in addition to time spent performing reported procedures but includes the following listed in this critical care notation. Medical Decision Making - Medical Records Medical records reviewed: Yes: I reviewed the patient's medical records. - Akash Inquiry Pt receiving controlled substance: No Vital Signs: 05/31/21 05:43 Temperature 99.3 F Temperature Source Oral Pulse Rate [Apical] 104 H Respiratory Rate 20 Blood Pressure [Right Arm] 130/75 Blood Pressure Mean [Right Arm] 93 Blood Pressure Source [Right Arm] Automatic Cuff Blood Pressure Position [Right Arm] Sitting 02 Sat by Pulse Oximetry 98 Oxygen Delivery Method Room Air - Lab Data Lab Results 05/31/21 05:48: SARS-CoV-2 (PCR) Detected A, Influenza A Untype (PCR) Not detected, Influenza Type B (PCR) Not detected 05/31/21 06:00: WBC 8.5, RBC 4.81, Hgb 14.8, Hct 44.1, MCV 91.6, MCH 30.7, MCHC 33.5, RDW 12.2, Plt Count 311, MPV 7.8, Neut % (Auto) 86.8 H, Lymph % (Auto) 3.7 L, [place] % (Auto) 7.6, Eos % (Auto) 0.6, Baso % (Auto) 1.3, Neut # (Auto) 7.4, Lymph # (Auto) 0.3 L, [place] # (Auto) 0.6, Eos # (Auto) 0.1, Baso # (Auto) 0.1, Total Counted 100, Neutrophils % (Manual) 92 H, Band Neutrophils % 1.0, Lymphocytes % (Manual) 4 L, Monocytes % (Manual) 3, Platelet Estimate Normal 05/31/21 06:00: Sodium 135 L, Potassium 3.8, Chloride 99, Carbon Dioxide 22, Anion Gap 17.8 H, BUN 7, Creatinine 0.40 L, Estimated Creat Clear 259, Estimated GFR 196, Est GFR ( Amer) 237, Glucose 127 H, Calcium 9.8, Total Bilirubin 0.4, AST 54 H, ALT 49, Alkaline Phosphatase 71, Total Protein 7.8, Albumin 4.5, Globulin 3.3 H, Albumin/Globulin Ratio 1.4 Result diagrams: 05/31/21 06:00 05/31/21 06:00 Orders (Tests/Meds): ED MEDICATIONS Generic Name Dose Route Start Last Admin Trade Name Freq PRN Reason Stop Dose Admin Lactated Ringer's 1,000 mls @ 999 mls/hr 05/31/21 06:00 05/31/21 06:08 Lactated Ringer's 1000 Ml Bag IV 05/31/21 07:00 999 mls/hr .Q1H1M KING Administration Discontinued Medications Generic Name Dose Route Start Last Admin Trade Name Freq PRN Reason Stop Dose Admin Azithromycin 500 mg 05/31/21 07:19 05/31/21 07:31 Azithromycin 250mg Tablet PO 05/31/21 07:20 Not Given ONCE ONE Methylprednisolone Sodium Succinate 125 mg 05/31/21 07:18 05/31/21 07:31 Methylprednisolone Sod Succ 125mg Vial IV 05/31/21 07:19 Not Given ONCE ONE Ondansetron HCl 4 mg 05/31/21 05:59 05/31/21 06:08 Ondansetron 4mg/2ml Vial IV 05/31/21 06:00 4 mg ONCE ONE Administration Medical Decision Narrative: Patient is a 26-year-old female 15 weeks with type 1 diabetes presented emergency department with chills, nausea vomiting. Differential diagnosis in this patient includes hyperglycemia, dehydration, COVID-19, influenza among others. Given this plan to order rapid Covid and influenza, give patient a liter of fluid, give 4 of Zofran, check patient's urine. Patient has a mild anion gap, consistent with the patient's nausea and vomiting. Patient requested water and was able
[2021-05-31 06:24] LABS: Basophils # 0.1 K/mm3 (0-0.2); Basophils % 1.3 % (0.1-2.0); Eosinophils # 0.1 K/mm3 (0.0-0.4); Eosinophils % 0.6 % (0.1-12.0); Hematocrit 44.1 % (37.0-47.0); Hemoglobin 14.8 g/dL (12.2-16.2); Lymphocytes # 0.3 K/mm3 (0.7-4.5); Lymphocytes % 3.7 % (10-50); Mean Corpuscular HGB Conc 33.5 g/dL (31.8-35.4); Mean Corpuscular Hemoglobin 30.7 pg (27.0-31.2); Mean Corpuscular Volume 91.6 fl (81-99); Mean Platelet Volume 7.8 fl (7.4-10.4); Monocytes # 0.6 K/mm3 (0.1-1.0); Monocytes % 7.6 % (1.7-9.3); Neutrophils # 7.4 K/mm3 (1.8-7.8); Neutrophils % 86.8 % (37.0-80.0); Platelet Count 311 K/mm3 (142-424); Red Blood Count 4.81 M/mm3 (4.20-5.40); Red Cell Distribution Width 12.2 % (11.5-17.5); White Blood Count 8.5 K/mm3 (4.8-10.8)
[2021-05-31 06:33] LABS: MANUAL DIFFERENTIAL MANUAL DIFFERENTIAL (MANUAL DIFF)
[2021-05-31 06:38] LABS: Alanine Aminotransferase 49 U/L (12-78); Albumin Level 4.5 g/dl (3.5-5.0); Albumin/Globulin Ratio 1.4 (1.1-1.8); Alkaline Phosphatase 71 U/L (38-126); Anion Gap 17.8 mEq/L (5-15); Aspartate Amino Transferase 54 U/L (14-36); Bilirubin,Total 0.4 mg/dl (0.2-1.3); Blood Urea Nitrogen 7 mg/dl (7-17); Calcium 9.8 mg/dl (8.4-10.2); Carbon Dioxide 22 mmol/L (22.0-30.0); Chloride 99 mmol/L (98-107); Creatinine Clearance Estimated 259 mL/min (50-200); Estimated Glomerular Filt Rate 196 ml/min (>60); GFR (African American) 237 ML/MIN (>60); Globulin 3.3 g/dL (1.3-3.2); Glucose 127 mg/dl (74-100); Potassium 3.8 mmoL/L (3.5-5.1); Sodium 135 mmol/L (136-145); Total Protein,Serum 7.8 g/dl (6.3-8.2)
[2021-05-31 06:49] LABS: Coronavirus 19, PCR Detected (NotDetected)
[2021-05-31 07:13] LABS: Lymphocytes % 4 % (10-50); Monocytes % 3 % (2-9); Neutrophils % 92 % (42-76); Platelet Estimate Normal; Total Cells Counted 100
[2021-05-31 07:56] VITALS: BP 105/65; PULSE 87; RESP 16; TEMP 36.6; O2SAT 98
== END 2021-05-31 07:57 | disposition home or self-care (01) ==
PROVIDERS: Emergency Provider Emergency Medicine; PCP Nurse Practitioner Family
DX: U07.1 COVID-19 (principal); R11.2 Nausea with vomiting, unspecified; E10.9 Type 1 diabetes mellitus without complications; Z3A.15 15 weeks gestation of pregnancy
CPT/HCPCS: 80053; 85007; 85025; 96365; 96375; 99283; C9803; J2405; U0003; U0005

== ENCOUNTER → 2021-06-29 13:31 | Outpatient (CLI) | payer OTHER, SELFPAY ==
--- NOTE | 2021-06-29 13:31 | US_ITS ---
FINAL REPORT CLINICAL HISTORY: greater than 14 wks-- dates only FINDINGS: There is a single live intrauterine gestation. Presentation is cephalic. The cervix is closed and measures 2.9 cm. Placenta is anterior and grade 1. Cardiac activity is confirmed at 155 bpm. The fetus is active. Three-vessel cord with satisfactory umbilical cord insertion. Four-chamber heart is noted. brain and ventricles are unremarkable. Chest and diaphragm are unremarkable. ABDOMEN: Both kidneys are unremarkable. Stomach is unremarkable. SPINE: No anomalies identified. Both arms and legs noted. AMNIOTIC FLUID: Appropriate amount. MEASUREMENTS: ULTRASOUND AGE: 17 weeks 0 days. GESTATION AGE: 17 weeks 0 days. ESTIMATED WEIGHT: 177 g GROWTH PERCENTILE: 43% BPD: 3.6 cm consistent with 17 weeks 0 days. OFD: 4.5 cm consistent with 16 weeks 6 days. HC: 12.7 cm consistent with 16 weeks 3 days. AC: 11.3 cm consistent with 17 weeks 1 days. FL: 2.3 cm consistent with 17 weeks 1 days. HUMERUS: 2.3 cm consistent with 17 weeks 2 days. HC/AC: 1.12 CI: 80% FL/BPD: 65% FL/AC: 21% IMPRESSION: Single living IUP with an ultrasound age of 17 weeks 0 days. Reviewed, Interpreted and Dictated by Kirill Trujillo III, MD Transcribed by Santos Covington Authenticated by Kirill Trujillo III, MD on 06/29/2021 04:33:[address] [facility]
== END ==
PROVIDERS: PCP Nurse Practitioner Family; Visit Provider Nurse Practitioner Obstetrics & Gynecology
DX: Z36.0 Encounter for antenatal screening for chromosomal anomalies (principal)
CPT/HCPCS: 76805

== ENCOUNTER 2021-08-14 17:53 | Outpatient (CLI) | payer OTHER, SELFPAY ==
[2021-08-14 18:07] VITALS: BP 124/67; PULSE 94; RESP 16; TEMP 37.1; O2SAT 95; BMI 33.5
== END 2021-08-14 18:47 | disposition home or self-care (01) ==
LOC: OBOUT 17:56 → OB 17:58
PROVIDERS: PCP Nurse Practitioner Obstetrics & Gynecology; Visit Provider Obstetrics & Gynecology
DX: O36.8120 Decreased fetal movements, second trimester, not applicable or unspecified (principal); Z3A.23 23 weeks gestation of pregnancy
CPT/HCPCS: 59025; G0463

== ENCOUNTER 2021-08-24 11:37 | Outpatient (CLI) | payer OTHER, SELFPAY ==
[2021-08-24 11:55] VITALS: BMI 34.3
[2021-08-24 11:57] VITALS: BP 132/78; PULSE 84; RESP 18; TEMP 36.9; O2SAT 98; BMI 34.3
[2021-08-24 12:15] LABS: Microscopic, Urine URINE MICROSCOPIC (MICROSCOPIC)
[2021-08-24 12:24] LABS: Appearance,Urine CLEAR (Clear); Bilirubin,Urine Negative (Negative); Blood, Urine Negative (Negative); Color,Urine YELLOW (Yellow); Glucose,Urine (UA) Negative (Negative); Ketones,Urine Negative (Negative); Leukocyte Esterase,Urine Negative (Negative); Nitrate,Urine Negative (Negative); PH,Urine 7.5 (5.0-8.5); Protein,Urine Negative (Negative); Urobilinogen,Urine 0.2 EU/dl (0.2)
[2021-08-24 12:25] LABS: POC Glucose,Bedside 73 (70-110)
[2021-08-24 13:07] LABS: WBC,Urine Occasional #/hpf (0-3)
[2021-08-24 13:08] LABS: Bacteria,Urine Trace /lpf
[2021-08-24 13:11] LABS: Barbiturates Screen,Urine Negative ng/ml (<200); Benzodiazepines Screen,Urine Negative ng/ml (<200)
[2021-08-24 13:12] LABS: Amphetamine/Metha Screen,Urine Negative ng/ml (<1000)
[2021-08-24 13:13] LABS: Cannabinoid Screen,Urine Positive ng/ml (<50); Methadone Screen,Urine Negative ng/ml (<300)
[2021-08-24 13:15] LABS: Opiate Screen,Urine Negative ng/ml (<300)
[2021-08-24 13:29] LABS: Phencyclidine Screen,Urine Negative ng/ml (<25)
[2021-08-24 14:01] LABS: Cocaine Screen,Urine Negative ng/ml (<300)
== END 2021-08-24 12:19 | disposition home or self-care (01) ==
LOC: OBOUT 11:38 → OB 11:40
PROVIDERS: PCP Nurse Practitioner Family; Visit Provider Nurse Practitioner Obstetrics & Gynecology
DX: O36.8120 Decreased fetal movements, second trimester, not applicable or unspecified (principal); Z3A.24 24 weeks gestation of pregnancy
CPT/HCPCS: 59025; 80305; 81001; 82962; G0463

== ENCOUNTER 2021-08-31 06:52 | Outpatient (CLI) | payer OTHER, SELFPAY ==
[2021-08-31 07:06] VITALS: BMI 35.5
[2021-08-31 07:18] LABS: Microscopic, Urine URINE MICROSCOPIC (MICROSCOPIC)
[2021-08-31 07:21] LABS: Appearance,Urine CLEAR (Clear); Bilirubin,Urine Negative (Negative); Blood, Urine Negative (Negative); Color,Urine YELLOW (Yellow); Glucose,Urine (UA) 3+ (Negative); Ketones,Urine Negative (Negative); Leukocyte Esterase,Urine Negative (Negative); Nitrate,Urine Negative (Negative); Protein,Urine Negative (Negative); Urobilinogen,Urine 0.2 EU/dl (0.2)
[2021-08-31 07:24] VITALS: BP 142/77; PULSE 81; RESP 18; TEMP 37; O2SAT 98; BMI 35.5
[2021-08-31 07:32] LABS: Squamous Epithelial Cell,Urine Occasional #/hpf (0-5)
[2021-08-31 07:35] LABS: Amphetamine/Metha Screen,Urine Negative ng/ml (<1000); Benzodiazepines Screen,Urine Negative ng/ml (<200)
[2021-08-31 07:36] LABS: Barbiturates Screen,Urine Negative ng/ml (<200); Cannabinoid Screen,Urine Positive ng/ml (<50)
[2021-08-31 07:37] LABS: Cocaine Screen,Urine Negative ng/ml (<300)
[2021-08-31 07:38] LABS: Methadone Screen,Urine Negative ng/ml (<300); Opiate Screen,Urine Negative ng/ml (<300)
[2021-08-31 07:39] LABS: Phencyclidine Screen,Urine Negative ng/ml (<25)
== END 2021-08-31 07:47 | disposition home or self-care (01) ==
LOC: OBOUT 06:55 → OB 06:57
PROVIDERS: PCP Nurse Practitioner Family; Visit Provider Obstetrics & Gynecology
DX: O26.892 Other specified pregnancy related conditions, second trimester (principal); Z3A.26 26 weeks gestation of pregnancy
CPT/HCPCS: 80305; 81001; G0463

== ENCOUNTER 2021-09-12 15:57 | Outpatient (CLI) | payer OTHER, SELFPAY ==
[2021-09-12 16:11] VITALS: BMI 35.6
[2021-09-12 16:20] VITALS: BP 117/72; PULSE 93; RESP 20; TEMP 36.8; O2SAT 97; BMI 35.6
[2021-09-12 16:20] LABS: Microscopic, Urine URINE MICROSCOPIC (MICROSCOPIC)
[2021-09-12 16:36] LABS: Appearance,Urine CLEAR (Clear); Bilirubin,Urine Negative (Negative); Blood, Urine Negative (Negative); Color,Urine YELLOW (Yellow); Glucose,Urine (UA) TRACE (Negative); Ketones,Urine Negative (Negative); Leukocyte Esterase,Urine TRACE (Negative); Nitrate,Urine Negative (Negative); Protein,Urine Negative (Negative); Specific Gravity, Urine >= 1.030 (1.005-1.030); Urobilinogen,Urine 0.2 EU/dl (0.2)
[2021-09-12 16:52] LABS: Amphetamine/Metha Screen,Urine Negative ng/ml (<1000); Benzodiazepines Screen,Urine Negative ng/ml (<200)
[2021-09-12 16:53] LABS: Barbiturates Screen,Urine Negative ng/ml (<200)
[2021-09-12 16:54] LABS: Bacteria,Urine Trace /lpf; Cannabinoid Screen,Urine Positive ng/ml (<50); Cocaine Screen,Urine Negative ng/ml (<300)
[2021-09-12 16:55] LABS: Methadone Screen,Urine Negative ng/ml (<300)
[2021-09-12 16:56] LABS: Opiate Screen,Urine Negative ng/ml (<300); Phencyclidine Screen,Urine Negative ng/ml (<25)
[2021-09-12 16:58] LABS: POC Glucose,Bedside 76 (70-110)
== END 2021-09-12 16:52 | disposition home or self-care (01) ==
LOC: OBOUT 16:00 → OB 16:01
PROVIDERS: PCP Nurse Practitioner Obstetrics & Gynecology; Visit Provider Nurse Practitioner Obstetrics & Gynecology
DX: Z34.90 Encounter for supervision of normal pregnancy, unspecified, unspecified trimester (principal)
CPT/HCPCS: 59025; 80305; 81001; 82962; G0463

== ENCOUNTER 2021-09-17 20:40 | Outpatient (CLI) | payer OTHER, SELFPAY ==
[2021-09-17 20:54] VITALS: BMI 34.7
[2021-09-17 21:02] LABS: Microscopic, Urine URINE MICROSCOPIC (MICROSCOPIC)
[2021-09-17 21:03] LABS: Appearance,Urine CLEAR (Clear); Bilirubin,Urine Negative (Negative); Blood, Urine Negative (Negative); Color,Urine YELLOW (Yellow); Glucose,Urine (UA) Negative (Negative); Ketones,Urine Negative (Negative); Leukocyte Esterase,Urine Negative (Negative); Nitrate,Urine Negative (Negative); PH,Urine 5.5 (5.0-8.5); Protein,Urine Negative (Negative); Specific Gravity, Urine >= 1.030 (1.005-1.030); Urobilinogen,Urine 0.2 EU/dl (0.2)
[2021-09-17 21:16] LABS: Bacteria,Urine 1+ /lpf; Mucus,Urine 1+ /lpf
[2021-09-17 21:22] VITALS: BP 141/87; PULSE 107; RESP 17; TEMP 36.8; O2SAT 100; BMI 34.7
[2021-09-17 22:13] LABS: Barbiturates Screen,Urine Negative ng/ml (<200)
[2021-09-17 22:14] LABS: Amphetamine/Metha Screen,Urine Negative ng/ml (<1000); Benzodiazepines Screen,Urine Negative ng/ml (<200)
[2021-09-17 22:15] LABS: Cannabinoid Screen,Urine Positive ng/ml (<50); Cocaine Screen,Urine Negative ng/ml (<300)
[2021-09-17 22:16] LABS: Methadone Screen,Urine Negative ng/ml (<300)
[2021-09-17 22:17] LABS: Opiate Screen,Urine Negative ng/ml (<300); Phencyclidine Screen,Urine Negative ng/ml (<25)
== END 2021-09-17 21:38 | disposition home or self-care (01) ==
LOC: OBOUT 20:43 → OB 20:45
PROVIDERS: PCP Nurse Practitioner Obstetrics & Gynecology; Visit Provider Obstetrics & Gynecology
DX: O36.8130 Decreased fetal movements, third trimester, not applicable or unspecified (principal); Z3A.28 28 weeks gestation of pregnancy
CPT/HCPCS: 59025; 80305; 81001; G0463

== ENCOUNTER 2021-09-27 19:50 | Outpatient (CLI) | payer OTHER, SELFPAY ==
[2021-09-27 20:19] VITALS: BP 116/74; PULSE 88; RESP 18; TEMP 36.7; O2SAT 98; BMI 36.0
== END 2021-09-27 20:33 | disposition home or self-care (01) ==
LOC: OBOUT 19:51 → OB 19:52
PROVIDERS: PCP Internal Medicine Adolescent Medicine; Visit Provider Obstetrics & Gynecology
DX: O36.8130 Decreased fetal movements, third trimester, not applicable or unspecified (principal); Z3A.30 30 weeks gestation of pregnancy
CPT/HCPCS: 59025; G0463

== ENCOUNTER 2021-10-10 17:12 | Outpatient (CLI) | payer OTHER, SELFPAY ==
[2021-10-10 17:22] VITALS: BMI 36.0
[2021-10-10 17:51] LABS: Microscopic, Urine URINE MICROSCOPIC (MICROSCOPIC)
[2021-10-10 17:52] VITALS: BP 117/63; PULSE 96; RESP 16; TEMP 36.8; O2SAT 98; BMI 36.0
[2021-10-10 18:06] LABS: Appearance,Urine CLEAR (Clear); Bilirubin,Urine Negative (Negative); Blood, Urine Negative (Negative); Color,Urine DK YELLOW (Yellow); Glucose,Urine (UA) 2+ (Negative); Ketones,Urine TRACE (Negative); Leukocyte Esterase,Urine TRACE (Negative); Nitrate,Urine Negative (Negative); Protein,Urine 1+ (Negative); Specific Gravity, Urine >= 1.030 (1.005-1.030); Urobilinogen,Urine 0.2 EU/dl (0.2)
[2021-10-10 18:15] LABS: Barbiturates Screen,Urine Negative ng/ml (<200)
[2021-10-10 18:16] LABS: Amphetamine/Metha Screen,Urine Negative ng/ml (<1000); Benzodiazepines Screen,Urine Negative ng/ml (<200)
[2021-10-10 18:17] LABS: Cannabinoid Screen,Urine Positive ng/ml (<50)
[2021-10-10 18:18] LABS: Cocaine Screen,Urine Negative ng/ml (<300); Methadone Screen,Urine Negative ng/ml (<300)
[2021-10-10 18:19] LABS: Bacteria,Urine Trace /lpf; Opiate Screen,Urine Negative ng/ml (<300)
[2021-10-10 18:20] LABS: Phencyclidine Screen,Urine Negative ng/ml (<25)
== END 2021-10-10 18:42 | disposition home or self-care (01) ==
LOC: OBOUT 17:14 → OB 17:16
PROVIDERS: PCP Nurse Practitioner Family; Visit Provider Obstetrics & Gynecology
DX: O36.8130 Decreased fetal movements, third trimester, not applicable or unspecified (principal); Z3A.31 31 weeks gestation of pregnancy; Z3A.34 34 weeks gestation of pregnancy
CPT/HCPCS: 59025; 80305; 81001; G0463

== ENCOUNTER 2021-10-28 16:30 | Outpatient (CLI) | payer OTHER, SELFPAY ==
--- NOTE | 2021-10-28 17:17 | PC.NURSE ---
16:45 - Nurse called registrations to see if pt. had finished registering and was ready for transport to unit. Registration reports. pt. was no longer sitting in waiting room, and had been talking with a nurse. nurse v/u and reports she will call pt. personal phone if pt. is not on unit in 10-15 minutes. 17:03 - Spoke with Pt. over telephone. Pt. reports feeling ACTIVE movement after registering and sitting down in waiting room. Pt. reports she decided to leave and reports she is at home. Nurse lyudmila/linwood.
== END 2021-10-28 17:03 | disposition left against medical advice (07) ==
LOC: OBOUT 16:33 → OB 16:33
PROVIDERS: PCP Nurse Practitioner Obstetrics & Gynecology; Visit Provider Obstetrics & Gynecology
DX: O36.8130 Decreased fetal movements, third trimester, not applicable or unspecified (principal); Z3A.33 33 weeks gestation of pregnancy

== ENCOUNTER 2021-11-01 07:35 | Outpatient (CLI) | payer OTHER, SELFPAY ==
[2021-11-01 08:01] VITALS: BP 120/62; PULSE 80; RESP 16; TEMP 36.8; O2SAT 98; BMI 36.7
[2021-11-01 08:10] LABS: Microscopic, Urine URINE MICROSCOPIC (MICROSCOPIC)
[2021-11-01 08:13] LABS: Appearance,Urine SL CLOUDY (Clear); Bilirubin,Urine Negative (Negative); Blood, Urine Negative (Negative); Color,Urine YELLOW (Yellow); Glucose,Urine (UA) Negative (Negative); Ketones,Urine Negative (Negative); Leukocyte Esterase,Urine 1+ (Negative); Nitrate,Urine Negative (Negative); PH,Urine 7.5 (5.0-8.5); Protein,Urine Negative (Negative); Specific Gravity, Urine 1.025 (1.005-1.030); Urobilinogen,Urine 0.2 EU/dl (0.2)
[2021-11-01 08:27] LABS: Benzodiazepines Screen,Urine Negative ng/ml (<200)
[2021-11-01 08:28] LABS: Amphetamine/Metha Screen,Urine Negative ng/ml (<1000); Barbiturates Screen,Urine Negative ng/ml (<200)
[2021-11-01 08:29] LABS: Cannabinoid Screen,Urine Positive ng/ml (<50)
[2021-11-01 08:30] LABS: Cocaine Screen,Urine Negative ng/ml (<300); Methadone Screen,Urine Negative ng/ml (<300)
[2021-11-01 08:31] LABS: Opiate Screen,Urine Negative ng/ml (<300)
[2021-11-01 08:32] LABS: Phencyclidine Screen,Urine Negative ng/ml (<25)
[2021-11-01 08:48] LABS: Bacteria,Urine 1+ /lpf; Sperm,Urine OCC /lpf
== END 2021-11-01 11:25 | disposition home or self-care (01) ==
LOC: OBOUT 07:37 → OB 07:37
PROVIDERS: PCP Nurse Practitioner Family; Visit Provider Obstetrics & Gynecology
DX: O36.8130 Decreased fetal movements, third trimester, not applicable or unspecified (principal); Z3A.34 34 weeks gestation of pregnancy
CPT/HCPCS: 59025; 80305; 81001; 87086; G0463

== ENCOUNTER → 2021-11-10 16:58 | Outpatient (CLI) | payer OTHER, SELFPAY | PROVIDERS: Visit Provider Nurse Practitioner Obstetrics & Gynecology | DX: Z34.90 Encounter for supervision of normal pregnancy, unspecified, unspecified trimester (principal) | CPT/HCPCS: 86403 ==

== ENCOUNTER → 2021-11-14 09:24 | Outpatient (CLI) | payer OTHER, SELFPAY ==
[2021-11-14 09:50] LABS: Basophils # 0.2 K/mm3 (0-0.2); Basophils % 1.6 % (0.1-2.0); Eosinophils # 0.2 K/mm3 (0.0-0.4); Eosinophils % 1.6 % (0.1-12.0); Hematocrit 33.1 % (37.0-47.0); Hemoglobin 11.5 g/dL (12.2-16.2); Lymphocytes # 2.1 K/mm3 (0.7-4.5); Lymphocytes % 17.1 % (10-50); Mean Corpuscular HGB Conc 34.6 g/dL (31.8-35.4); Mean Corpuscular Hemoglobin 31.9 pg (27.0-31.2); Mean Corpuscular Volume 92.1 fl (81-99); Mean Platelet Volume 8.5 fl (7.4-10.4); Monocytes # 0.5 K/mm3 (0.1-1.0); Monocytes % 3.6 % (1.7-9.3); Neutrophils # 9.5 K/mm3 (1.8-7.8); Neutrophils % 76.1 % (37.0-80.0); Platelet Count 303 K/mm3 (142-424); Red Blood Count 3.59 M/mm3 (4.20-5.40); Red Cell Distribution Width 12.2 % (11.5-17.5); White Blood Count 12.5 K/mm3 (4.8-10.8)
[2021-11-14 10:28] LABS: Chloride 106 mmol/L (98-107)
[2021-11-14 10:29] LABS: Potassium 3.9 mmoL/L (3.5-5.1); Sodium 134 mmol/L (136-145)
[2021-11-14 10:32] LABS: Anion Gap 10.9 mEq/L (5-15); Blood Urea Nitrogen 5 mg/dl (7-17); Calcium 8.8 mg/dl (8.4-10.2); Carbon Dioxide 21 mmol/L (22.0-30.0); Estimated Glomerular Filt Rate 196 ml/min (>60); GFR (African American) 237 ML/MIN (>60); Glucose 153 mg/dl (74-100)
== END ==
PROVIDERS: PCP Nurse Practitioner Family; Visit Provider Nurse Practitioner Obstetrics & Gynecology
DX: Z34.90 Encounter for supervision of normal pregnancy, unspecified, unspecified trimester (principal)
CPT/HCPCS: 36415; 80048; 85025; C9803; U0003; U0005

== ENCOUNTER 2021-11-16 04:51 | Inpatient (IN) | payer OTHER, SELFPAY ==
[2021-11-16] VITALS (9 sets, daily range): BP systolic 116–149; BP diastolic 63–97; PULSE 68–90; RESP 14–20; TEMP 36.3–36.8; O2SAT 98–100; BMI 37.0
[2021-11-16 05:47] LABS: Coronavirus 19, PCR Not Detected (NotDetected); Influenza A, PCR Not Detected (NotDetected); Influenza B, PCR Not Detected (NotDetected); Microscopic, Urine URINE MICROSCOPIC (MICROSCOPIC)
[2021-11-16 05:54] LABS: Appearance,Urine SL CLOUDY (Clear); Bilirubin,Urine Negative (Negative); Blood, Urine Negative (Negative); Color,Urine YELLOW (Yellow); Glucose,Urine (UA) 1+ (Negative); Ketones,Urine Negative (Negative); Leukocyte Esterase,Urine 1+ (Negative); Nitrate,Urine Negative (Negative); PH,Urine 6.5 (5.0-8.5); Protein,Urine Negative (Negative); Specific Gravity, Urine 1.025 (1.005-1.030); Urobilinogen,Urine 0.2 EU/dl (0.2)
[2021-11-16 06:00] LABS: Bacteria,Urine Trace /lpf; Mucus,Urine 1+ /lpf
[2021-11-16 06:01] LABS: Barbiturates Screen,Urine Negative ng/ml (<200)
[2021-11-16 06:02] LABS: Amphetamine/Metha Screen,Urine Negative ng/ml (<1000); Benzodiazepines Screen,Urine Negative ng/ml (<200)
[2021-11-16 06:03] LABS: Methadone Screen,Urine Negative ng/ml (<300)
[2021-11-16 06:04] LABS: Cannabinoid Screen,Urine Positive ng/ml (<50); Cocaine Screen,Urine Negative ng/ml (<300)
[2021-11-16 06:05] LABS: Opiate Screen,Urine Negative ng/ml (<300)
[2021-11-16 06:06] LABS: Phencyclidine Screen,Urine Negative ng/ml (<25)
--- NOTE | 2021-11-16 07:19 | HMH.PHAINT ---
MEDICATION RECONCILIATION COMPLETED ON PATIENT USING EXTERNAL FILL HISTORY FROM PHARMACY AND LIST FROM PCP OFFICE. -ANJALI RAIND
--- NOTE | 2021-11-16 08:50 | HMH.OPNOTE ---
Date of procedure: 11/16/21 Pre-op Diagnosis:: Term , insulin-dependent diabetes Post-op Diagnosis:: Term , insulin-dependent diabetes Procedure performed:: Primary lower segment transverse section Surgeon:: Harrison Garcia MD APARTMENT HOTEL MANAGER:: Other (Miguel Ángel Patel) Anesthesia: spinal Estimated blood loss (mL): 600 Clinical Note:: She is a 26-year-old 1 now para 0 at 37+ weeks gestational age. She has insulin-dependent diabetes. She requested a section at term. The risks and benefits of surgery discussed with patient prior to surgery. Operative findings:: She delivered a liveborn female child at 8:09 AM on the morning of November 16, 2021. The baby had Apgars of 8 at 1 minute and 9 at 5 minutes. Ovaries and tubes appeared normal. Operative note:: She was taken to the operating room where spinal anesthesia was found be adequate. She was prepped and draped in normal sterile fashion in the supine position with a leftward tilt. A Correa catheter was in the bladder. A Pfannenstiel skin incision was made with knife then carried through to the underlying layer of fascia with cautery. The fascia was opened in the midline with cautery and extended laterally using Perry scissors. Brandy clamps were applied to the superior aspect of the fascial incision which was tented up and the underlying rectus muscles dissected off using cautery. The Brandy clamps were then applied to the inferior aspect of the fascial incision which in a similar fashion was tented up and the underlying rectus muscles dissected off using cautery. The rectus muscles were then in the midline, the peritoneum identified, and entered sharply with Metzenbaum scissors. This incision was then extended superiorly and inferiorly with cautery. We had good visualization of the bladder inferiorly. The bladder peritoneum was then opened in the midline and extended laterally using Metzenbaum scissors. A bladder flap was created digitally. An Alex retractor was then inserted into the abdominal cavity. Transverse incision was made through the uterine muscle to the amnion. This incision was then extended laterally using fingers traction. The amnion was entered sharply with knife. There was clear amniotic fluid. The 's head was then delivered atraumatically. This was followed by the anterior shoulder and the rest of the infant's body atraumatically. The oropharynx and nasopharynx were bulb suctioned. The infant was vigorous so we allowed the cord to continue to pulsate for approximately 1 minute. The was then handed off to Dr. Marie who assigned Apgars of 8 at 1 minute and 9 at 5 minutes. We then obtained cord blood. Using gentle traction on the cord and countertraction on the fundus I was able to easily deliver the placenta intact. It had a normal three-vessel cord. The uterus was then cleared of clots and debris . The uterine incision was then closed using running 0 Vicryl suture in a locked fashion. A second layer of the same suture was used to imbricate the first layer. There was a small amount of bleeding in the medial aspect of the incision and [id number] sutures were used to obtain excellent hemostasis. The bladder peritoneum was then closed using running 2-0 Vicryl suture in a locked fashion. The gutters and cul-de-sac were then cleared of clots and debris . Once again hemostasis was assured. The Alex retractor was then removed. The peritoneum was grasped with Violet clamps and closed using running 2-0 Vicryl suture. The rectus muscles were then reapproximated using running 0 Vicryl suture. The fascia was closed using running #1 Vicryl suture. The subcutaneous tissues were then irrigated with warm water followed by closure Teresa's fascia using running 2-0 Monocryl suture. The skin was closed with running subcuticular 4-0 Monocryl strata fix suture. I then cleaned the skin with Hibiclens. Sterile dressings were applied. Anesthesia then
--- NOTE | 2021-11-16 08:58 | HMH.OBAPHP ---
OB - H&P: HPI Antepartum - History of Present Illness Chief complaint: Term , insulin-dependent diabetes History of present illness: She is a 26-year-old 1 para 0 at 37 weeks gestational age. She has insulin-dependent diabetes. She has been requiring increasing amounts of insulin throughout the . She has been followed jointly with [facility] for her diabetes. She requested a at term. The risks and benefits of surgery discussed the patient prior to surgery. - History of Present Criteria for establishing EDC:: LMP confirmed by 1st trimester US care: good care Ultrasounds: normal 1st trimester US, normal mid trimester US Obstetrical complications: other (Insulin-dependent diabetes) Medical complications: other (Insulin-dependent diabetes) - Labs Blood type: O (+) positive Rubella: immune RPR/VDRL: nonreactive GBS status: negative HBsAG: negative HMH History I have reviewed the patient's past medical history: Yes Medical History: Reports:: Diabetes Mellitus Type 1 Denies:: Cancer, MRSA *Have you ever received a pneumonia vaccine?: No *Have you received a flu vaccine this season?: No Other Medical History: Reports: Hypothyroidism Laterality Cases: Bilateral: Tonsillectomy, Other Other Surgeries: Yes: No Previous Surgery, Other. No: Amputation: No Fractures: No - *Social History Smoking Status: Current every day smoker Tobacco Type: cigarettes # Packs/Day (cigarettes): 1 Alcohol Intake: never Alcohol Intake Frequency:: holidays/special occasions only Substance Use Type: marijuana *Occupational Status:: unemployed Housing: other Household Members: spouse *Travel in the last 8 weeks: None Family Hx:: Cancer, Hyperlipidemia, Hypertension, Mental illness, Diabetes, Other Para: 0 Review of Systems - Review of Systems Review of systems:: pertinent systems reviewed and negative unless documented below Meds Home Medications Medication Instructions Recorded Confirmed Type vitamin with calcium 1 tab PO DAILY tab 07/15/21 11/16/21 History no.72-iron 27 mg-folic acid 1 mg tablet levothyroxine 75 mcg tablet 75 mcg PO DAILY tab 08/12/21 11/16/21 History Aspirin [Aspirin 81mg EC Tab] 81 mg PO DAILY 11/16/21 11/16/21 History Ferrous Sulfate [Ferosul] 325 mg PO DAILY 11/16/21 11/16/21 History Insulin Glargine,Hum.rec.anlog 36 units SQ HS 11/16/21 11/16/21 History [Lantus] Insulin Lispro [Humalog] 30 unit SQ AC 11/16/21 11/16/21 History RX: Ondansetron [Zofran 4mg 4 mg PO Q6HP PRN 11/16/21 11/16/21 History ODT] RX: Promethazine HCl 12.5 mg PO Q4HP PRN 11/16/21 11/16/21 History Allergies Allergy/AdvReac Type Severity Reaction Status Date / Time No Known Allergies Allergy Verified 11/10/21 11:30 OB - H&P: Exam - Physical Exam Vital signs: Temp Pulse Resp BP Pulse Ox 98.2 F 80 18 142/67 H 98 11/16/21 05:53 11/16/21 05:53 11/16/21 05:53 11/16/21 05:53 11/16/21 05:53 - Constitutional no acute distress - Routine HEENT Exam Head: Present: normocephalic Eye: Present: EOMI, PERRL ENT: Present: mucous membranes moist - Routine Neck Exam Present: supple, full ROM - Routine Respiratory Exam Absent: accessory muscle use (good air entry bilaterally), respiratory distress, wheezes, crackles - Routine Cardiovascular Exam Present: RRR. Absent: murmur - Routine Abdominal Exam Present: soft, normoactive bowel sounds. Absent: tenderness, distended, guarding - Routine Rectal Exam Patient deferred: visual exam, digital exam - Routine Exam Patient deferred: external exam, groin exam, perineal exam - Routine Extremities Exam Present: full ROM. Absent: cyanosis, edema - Routine Skin Exam Present: intact. Absent: cyanosis - Routine Neurological Exam Present: alert, oriented X3 - Routine Psychiatric Exam Present: normal affect OB - Results - Labs La
--- NOTE | 2021-11-16 09:01 | HMH.ANESCL ---
[facility] Anesthesia Checklist - Patient Identification Patient Identification: Arm Band, Verbal (Name & ) - Structural Data Admitted From: Inpatient Planned Operative Procedure/s: C Section Consent for Planned Operative Procedure(s) Verified: Yes Verified Documents: Surgical Consent - NPO Status Verified Time NPO: 00:00 - Chart Verification Results Verified: CBC - Airway Assessment C-Spine Mobility Assessed: Yes TMJ Mobility Assessed: Yes - Neurological Assessment Level of Consciousness: Awake, Alert, Appropriate - Anesthesia Plan Anesthesia Risk discussed: Yes ASA Class: II Anesthesia Type: Spinal [facility] History I have reviewed the patient's past medical history: Yes Medical History: Reports:: Diabetes Mellitus Type 1 Denies:: Cancer, MRSA *Have you ever received a pneumonia vaccine?: No *Have you received a flu vaccine this season?: No Other Medical History: Reports: Hypothyroidism Anesthesia experience/problems:: none Laterality Cases: Bilateral: Tonsillectomy, Other Other Surgeries: Yes: No Previous Surgery, Other. No: Amputation: No Fractures: No - *Social History Smoking Status: Current every day smoker Tobacco Type: cigarettes # Packs/Day (cigarettes): 1 Alcohol Intake: never Alcohol Intake Frequency:: holidays/special occasions only Substance Use Type: marijuana *Occupational Status:: unemployed Housing: other Household Members: spouse *Travel in the last 8 weeks: None Family Hx:: Cancer, Hyperlipidemia, Hypertension, Mental illness, Diabetes, Other Para: 0
--- NOTE | 2021-11-16 09:03 | HMH.ANESI ---
[facility] Anesthesia Record Part I Intake, IV Amount: 2,000 Estimated blood loss (mL): 600 Urine output (mL): 520 Blood Pressure: 142/87 SaO2: 99 Pulse Rate: 90 Respiratory Rate: 14 Temperature: 97.5 F Patient is:: Awake Stable to PACU at:: 08:52
[2021-11-16 09:15] LABS: POC Glucose,Bedside 189 (70-110)
--- NOTE | 2021-11-16 09:37 | HMH.PHAVTE ---
[facility] VTE Monitoring - Patient Demographics Admission date: 11/16/21 Report Date: 11/16/21 Time: 09:37 Allergies/Adverse Reactions: Patient Allergies No Known Allergies Allergy (Verified 11/10/21 11:30) Height: 1.63 m Weight: 97.976 kg Patient Problems: Current Active Problems delivery due to maternal disorder (Acute) Myy-vxutcfk-twpqtkrvv diabetes mellitus during , antepartum (Acute) Diabetes mellitus (Acute) - Prophylaxis VTE Prophylaxis Ordered?: Yes Types of VTE Prophylaxis: IPCS Thigh High Location of Applied Device: Bilateral Lower Extremeties
--- NOTE | 2021-11-16 09:50 | SUR.PHASEI ---
Late Entry 0857 BS obtained with results of Zak. Cricket Patel CRNA notified. No new orders given at this time.
--- NOTE | 2021-11-16 10:00 | SUR.PHASEI ---
0918 called and provided detailed report to AUSTEN Mendieta RN 0919 transported via bed to OB room. vital signs stable. denies pain at this time. left in stable condition with AUSTEN Mendieta RN at bedside
[2021-11-16 14:37] LABS: Microscopic,Cath URINE MICROSCOPIC (MICROSCOPIC)
--- NOTE | 2021-11-16 15:36 | HMH.ANESII ---
[facility] Anesthesia Record Part II Discharge Time: 09:22 Destination: Obstetric PACU nurse assessment reviewed?: Yes Patient Condition:: Good Anesthesia Complications:: None Swallowing reflex intact?: Yes Cyanosis?: No Blood Pressure: 149/75 Pulse Rate: 81 Temperature: 97.4 F Mental Status: Alert & Oriented Pain level:: 6 Nausea and/or vomitting:: None Intake, IV Amount: 0
[2021-11-16 16:06] LABS: Appearance,Urine/Cath CLEAR (Clear); Bilirubin,Cath Negative (Negative); Blood, Urine/Cath Negative (Negative); Color,Urine/Cath YELLOW (Yellow); Glucose,Urine/Cath (UA) TRACE (Negative); Ketones,Urine/Cath Negative (Negative); Leukocyte Esterase,Cath Negative (Negative); Nitrate,Cath Negative (Negative); PH,Urine/Cath 6.5 (5.0-8.5); Protein,Urine/Cath Negative (Negative); Specific Gravity, Urine/Cath 1.015 (1.005-1.030); Urobilinogen,Cath 0.2 EU/dl (0.2)
[2021-11-16 16:58] LABS: POC Glucose,Bedside 82 (70-110)
[2021-11-17 03:33] VITALS: BP 123/68; PULSE 71; RESP 18; TEMP 36.7; O2SAT 99
--- NOTE | 2021-11-17 05:09 | PC.NURSE ---
CHECKED PT'S BS AT THIS TIME. RESULT OF 56. PT ASHLEE STATES BS 55. PROVIDED PT WITH APPLE JUICE, HENRRY CRACKERS AND TRAIL MIX AT THIS TIME. STATES SHE FEELS FINE, THAT THIS SOMETIMES HAPPENS IN THE MORNINGS. EATING AND DRINKING NOW, WILL RE-CHECK IN 15-20 MINS.
[2021-11-17 05:11] LABS: POC Glucose,Bedside 56 (70-110)
--- NOTE | 2021-11-17 06:02 | PC.NURSE ---
BS PER DEXICOM 102 AT THIS TIME.
[2021-11-17 08:39] VITALS: BP 120/65; PULSE 85; RESP 19; TEMP 36.7; O2SAT 98
[2021-11-17 10:21] LABS: Hematocrit 28.6 % (37.0-47.0); Hemoglobin 9.9 g/dL (12.2-16.2)
--- NOTE | 2021-11-17 11:06 | P.PN_ITS ---
Internal Medicine - PN: Subj *Date: 11/17/21 *Time: 11:06 Interval history: She is doing very well. She says that her pain is doing well. Her sugars are doing well. She is taking 47 units of Lantus at night and 20 units before meals. Her incision is clean and dry. She is bottlefeeding. Exam Vital signs and Labs for Last 24 Hours: Temp Pulse Resp BP Pulse Ox 98.0 F 85 19 120/65 98 11/17/21 08:39 11/17/21 08:39 11/17/21 08:39 11/17/21 08:39 11/17/21 08:39 Laboratory Results - last 24 hr 11/16/21 07:45: Urine Color Yellow, Urine Appearance Clear, Urine pH 6.5, Ur Specific [place] 1.015, Urine Protein Negative, Urine Glucose (UA) Trace, Urine Ketones Negative, Urine Blood Negative, Urine Nitrate Negative, Urine Bilirubin Negative, Urine Urobilinogen 0.2, Ur Leukocyte Esterase Negative, Urine RBC None, Urine WBC 3-5, Ur Squamous Epith Cells None, Urine Bacteria None 11/16/21 16:47: POC Glucose 82 11/17/21 05:04: POC Glucose 56 L 11/17/21 09:52: Hgb 9.9 L, Hct 28.6 L I & O for Last 24 hours: Intake & Output 11/14/21 11/15/21 11/16/21 11/17/21 11:59 11:59 11:59 11:59 Intake Total 1999 / 1999 0 / 0 Output Total 520 / 520 600 / 600 Balance 1480 / 1480 -600 / -600 Weight 216 lb Microbiology Reports for the Last 24 Hours: Microbiology 11/16/21 05:30 Urine,Clean Catch Urine Culture - Preliminary - Constitutional no acute distress - *Routine HEENT Exam Head: Present: normocephalic Eye: Present: EOMI, PERRL ENT: Present: mucous membranes moist Assessment and Plan (1) delivery due to maternal disorder Status: Acute Category: Medical Code(s): O99.892 - Other specified diseases and conditions complicating childbirth (2) Cgw-qdslvsw-ckaylnhtz diabetes mellitus during , antepartum Status: Acute Category: Medical (3) Diabetes mellitus Status: Acute Qualifiers: Diabetes mellitus type: type 1 Diabetes mellitus complication status: without complication Qualified Code(s): E10.9 - Type 1 diabetes mellitus without complications Category: Medical Code(s): E11.9 - Type 2 diabetes mellitus without complications - Assessment and plan all Dx Assessment and Plan for all problems:: She is doing very well 1 day postoperatively. She did have a tap block and the pain is well controlled with this. Her sugars are doing well. We have put her back on the insulin dosages that she was taking prior to getting . This seems to be working well.
--- NOTE | 2021-11-17 11:06 | SW/DCPLANNER ---
Addendum entered by Chelsy Sharpe 11/18/21 10:47: Haritha hubbard/ CPS is at [facility] to speak with this patient. Addendum entered by Chelsy Sharpe 11/18/21 09:57: Per Central Intake this case did meet criteria and will be investigated. I will contact CPS this AM to inform them that this patient is medically stable for discharge today. Original Note: I received a referral for this patient regarding: THC + during and at admission. Patient tested positive for THC on: 05/05/21, 06/15/21,07/15/21,08/24/21,08/31/21,09/12/21, 09/17/21, 09/30/21, 10/11/21, 10/19/21, 10/27/21, 11/01/21, 11/03/21 and 11/16/21. Patient admits to THC use stating it help with nausea and energy to get out of bed. Infant (Christiane Rodriguez) urine drug was also positive on admission 11/16/21. 's father (Alberto Rodriguez 04/01/88) was also present at time of my visit. Patient, Alberto and Christiane will reside at [address] [place] [address] in [place]. Patient's contact number is [phone]. This is patient and Alberto's first child. Patient will be established with [facility] and is interested in HANDS (I will make contact with Chato Pitts). Patient stated that she has the following items at home: crib, carseat, clothing, diapers and will be bottle feeding. I did report this case to Central Intake ID# [id number]. I will follow up with Central Intake once case is reviewed. Patient is planned to discharge on 11/18/21 or 11/19/21.
--- NOTE | 2021-11-17 16:35 | PC.NURSE ---
Patient refused finger stick. Dexcom reading 144
[2021-11-17 20:00] VITALS: BP 132/63; PULSE 75; RESP 17; O2SAT 98
[2021-11-18 04:00] VITALS: BP 111/58; PULSE 69; RESP 17; TEMP 36.7; O2SAT 99
[2021-11-18 09:18] VITALS: BP 115/72; PULSE 90; RESP 16; TEMP 36.9; O2SAT 96
--- NOTE | 2021-11-18 11:19 | HMH.OBDCSM ---
General - General Admission date:: 11/16/21 Discharge date: 11/18/21 HPI - History of Present Illness History of present illness: She is a 26-year-old type I diabetic who was 38 weeks gestational age. She was admitted for primary section. Hospital Course Hospital Course: On November 16, 2021 she underwent a primary lower segment transverse section. She delivered a liveborn female child at 8:09 AM. The baby weighed 6 pounds 13 ounces and was 19 inches long. She had Apgars of 8 at 1 minute and 9 at 5 minutes. She has done well and has remained afebrile throughout her hospitalization. Her sugars are doing well. We have converted her back to her prepregnancy levels of insulin. She has O+ blood, she is rubella immune and was group B streptococcus negative. She is discharged home to follow-up with me in approximately 2 weeks time. She will continue with her vitamins and iron. She was given a prescription for Percocet 5/325 number 12 tablets. She will take Tylenol and ibuprofen at home as well. She did have a tap block and this is done very well for her pain relief. Her condition on discharge is stable and improved. Rhogam Administration: Not Indicated Objective Vital signs: Temp Pulse Resp BP Pulse Ox 98.5 F 90 16 115/72 96 11/18/21 09:18 11/18/21 09:18 11/18/21 09:18 11/18/21 09:18 11/18/21 09:18 no acute distress - *Routine HEENT Exam Head: Present: normocephalic Eye: Present: EOMI, PERRL ENT: Present: mucous membranes moist Results Labs on day of discharge: Preliminary micro results at discharge 11/16/21 05:30 Urine Culture - Preliminary Urine,Clean Catch DS: Diagnosis - Discharge Diagnosis (1) delivery due to maternal disorder Status: Acute (2) Gaj-yjapcul-zoklomfjk diabetes mellitus during , antepartum Status: Acute (3) Diabetes mellitus Status: Acute Discharge Plan - Patient Discharge Instructions ACTIVITY: No heavy lifting DIET: continue same diet - Follow up Plan Disposition: Home, Self-Care Condition at discharge:: Stable Home Medications: Home Medications Medication Instructions Recorded Confirmed Type vitamin with calcium 1 tab PO DAILY tab 07/15/21 11/16/21 History no.72-iron 27 mg-folic acid 1 mg tablet levothyroxine 75 mcg tablet 75 mcg PO DAILY tab 08/12/21 11/16/21 History Aspirin [Aspirin 81mg EC Tab] 81 mg PO DAILY 11/16/21 11/16/21 History Ferrous Sulfate [Ferosul] 325 mg PO DAILY 11/16/21 11/16/21 History Insulin Glargine,Hum.rec.anlog 36 units SQ HS 11/16/21 11/16/21 History [Lantus] Insulin Lispro [Humalog] 30 unit SQ AC 11/16/21 11/16/21 History Ondansetron [Zofran 4mg ODT] 4 mg PO Q6HP PRN 11/16/21 11/16/21 History Promethazine HCl 12.5 mg PO Q4HP PRN 11/16/21 11/16/21 History Oxycodone HCl/Acetaminophen 1 tab PO Q4-6H PRN #12 tablet 11/18/21 Rx [Percocet 5/325mg tablet] Prescriptions/Medication Reconciliation: New Oxycodone HCl/Acetaminophen [Percocet 5/325mg tablet] 1 tab PO Q4-6H PRN #12 tablet PRN Reason: Severe Pain Continued vitamin with calcium no.72-iron 27 mg-folic acid 1 mg tablet 1 tab PO DAILY tab levothyroxine 75 mcg tablet 75 mcg PO DAILY tab Promethazine HCl 12.5 mg PO Q4HP PRN PRN Reason: Nausea And Vomiting Insulin Lispro [Humalog] 30 unit SQ AC Insulin Glargine,Hum.rec.anlog [Lantus] 36 units SQ HS Ferrous Sulfate [Ferosul] 325 mg PO DAILY Ondansetron [Zofran 4mg ODT] 4 mg PO Q6HP PRN PRN Reason: nausea and vomiting Discontinued Aspirin [Aspirin 81mg EC Tab] 81 mg PO DAILY - Problem Reconciliation Problems Reviewed?: Yes
== END 2021-11-18 12:00 | disposition home or self-care (01) | DRG 788 ==
PROVIDERS: Admitting Provider Nurse Practitioner Obstetrics & Gynecology; PCP Nurse Practitioner Family; Visit Provider Nurse Practitioner Obstetrics & Gynecology
PROC: 10D00Z1 Extraction of Products of Conception, Low, Open Approach (ICD-10-PCS; CPT 59514; principal; 2021-11-16 07:30)
DX: O24.013 Pre-existing type 1 diabetes mellitus, in pregnancy, third trimester (principal); Z37.0 Single live birth; Z79.4 Long term (current) use of insulin; Z3A.38 38 weeks gestation of pregnancy
CPT/HCPCS: 59514; 36415; 59025; 80048; 80305; 81001; 82962; 85014; 85018; 85025; 86850; 87086; C9290; C9803; J2405; U0003; U0005

== ENCOUNTER → 2022-03-25 15:56 | Outpatient (CLI) | payer OTHER, SELFPAY ==
--- NOTE | 2022-03-25 16:05 | XR_ITS ---
FINAL REPORT CLINICAL HISTORY: Diabetic Neuropathy FINDINGS: 3 views of the left foot were obtained. There is no acute fracture or dislocation. The joint spaces are intact. The soft tissues are unremarkable. IMPRESSION: No acute process. Reviewed, Interpreted and Dictated by Kirill Trujillo III, MD Transcribed by Santos Covington Authenticated and [facility]
--- NOTE | 2022-03-25 16:05 | XR_ITS ---
FINAL REPORT CLINICAL HISTORY: Diabetic Neuropathy FINDINGS: 3 views of the right foot were obtained. There is no acute fracture or dislocation. The joint spaces are intact. The soft tissues are unremarkable. IMPRESSION: No acute process. Reviewed, Interpreted and Dictated by Kirill Trujillo III, MD Transcribed by Santos Covington Authenticated and [facility]
== END ==
PROVIDERS: PCP Physician Assistant; Referring Provider Nurse Practitioner Family; Visit Provider Student in an Organized Health Care Education/Training Program
DX: E11.9 Type 2 diabetes mellitus without complications (principal); M79.671 Pain in right foot; M79.672 Pain in left foot
CPT/HCPCS: 73630

== ENCOUNTER → 2022-06-15 16:10 | Outpatient (CLI) | payer OTHER, SELFPAY | PROVIDERS: PCP Student in an Organized Health Care Education/Training Program; Visit Provider Student in an Organized Health Care Education/Training Program | DX: N89.8 Other specified noninflammatory disorders of vagina (principal) | CPT/HCPCS: 87086 ==

== ENCOUNTER → 2023-04-28 07:45 | Outpatient (CLI) | payer OTHER, SELFPAY ==
[2023-04-28 19:42] LABS: Basophils # 0.1 K/mm3 (0-0.2); Basophils % 0.7 % (0.1-2.0); Eosinophils # 0.3 K/mm3 (0.0-0.4); Eosinophils % 3.7 % (0.1-12.0); Hematocrit 46.8 % (37.0-47.0); Hemoglobin 15.4 g/dL (12.2-16.2); Lymphocytes # 1.9 K/mm3 (0.7-4.5); Lymphocytes % 25.5 % (10-50); Mean Corpuscular HGB Conc 32.9 g/dL (31.8-35.4); Mean Corpuscular Hemoglobin 30.1 pg (27.0-31.2); Mean Corpuscular Volume 91.3 fl (81-99); Mean Platelet Volume 8.7 fl (7.4-10.4); Monocytes # 0.5 K/mm3 (0.1-1.0); Monocytes % 6.7 % (1.7-9.3); Neutrophils # 4.8 K/mm3 (1.8-7.8); Neutrophils % 63.5 % (37.0-80.0); Platelet Count 343 K/mm3 (142-424); Red Blood Count 5.13 M/mm3 (4.20-5.40); Red Cell Distribution Width 12.1 % (11.5-17.5); White Blood Count 7.6 K/mm3 (4.8-10.8)
[2023-04-28 19:50] LABS: Hemoglobin A1C 8.1 % (4.0-6.0)
[2023-04-28 20:15] LABS: Alanine Aminotransferase 15 U/L (12-78); Albumin Level 4.7 g/dl (3.5-5.0); Albumin/Globulin Ratio 1.3 (1.1-1.8); Alkaline Phosphatase 79 U/L (38-126); Anion Gap 16.9 mEq/L (5-15); Aspartate Amino Transferase 24 U/L (14-36); Bilirubin,Total 0.4 mg/dl (0.2-1.3); Blood Urea Nitrogen 7 mg/dl (7-17); Calcium 8.5 mg/dl (8.4-10.2); Carbon Dioxide 25 mmol/L (22.0-30.0); Chloride 98 mmol/L (98-107); Chol/HDL Ratio 4.2 (1-3.5); Cholesterol 154 mg/dl (140-200); Estimated Glomerular Filt Rate 149 ml/min (>60); GFR (African American) 180 ML/MIN (>60); Globulin 3.5 g/dL (1.3-3.2); Glucose 238 mg/dl (74-100); HDL Cholesterol 37 mg/dl (40-60); Potassium 3.9 mmoL/L (3.5-5.1); Sodium 136 mmol/L (136-145); Total Protein,Serum 8.2 g/dl (6.3-8.2); Triglycerides 83 mg/dl (30-150); VLDL Cholesterol 17 mg/dL (0-40)
[2023-04-28 20:22] LABS: Microalbumin/Creatinine Ratio 35.8
[2023-04-28 20:26] LABS: Direct LDL Cholesterol 98.35 mg/dL (100-129)
[2023-04-28 20:32] LABS: 25-OH Vitamin D, Total 39.2 ng/mL (30-100)
[2023-04-28 20:34] LABS: Creatinine,Urine Random 36 mg/dL (Not Estab.)
[2023-04-28 20:46] LABS: Thyroid Stimulating Hormone 1.47 uIU/mL (0.465-4.68)
[2023-04-30 09:12] LABS: FSH 6.6 mIU/mL (.); LH 5.1 mIU/mL (.); Progesterone 0.3 ng/mL (.); Prolactin 5.3 ng/mL (4.8-23.3); Testosterone,Total 57 ng/dL (13-71)
== END ==
PROVIDERS: PCP Physician Assistant; Visit Provider Physician Assistant
DX: E11.40 Type 2 diabetes mellitus with diabetic neuropathy, unspecified (principal); R53.83 Other fatigue; N92.6 Irregular menstruation, unspecified; E66.9 Obesity, unspecified; Z68.34 Body mass index [BMI] 34.0-34.9, adult; Z79.4 Long term (current) use of insulin; Z79.899 Other long term (current) drug therapy
CPT/HCPCS: 80053; 80061; 82043; 82306; 82570; 82626; 82670; 83001; 83002; 83036; 84144; 84146; 84403; 84443; 85025

== ENCOUNTER → 2023-05-06 07:36 | Outpatient (CLI) | payer OTHER, SELFPAY ==
--- NOTE | 2023-05-06 07:37 | US_ITS ---
FINAL REPORT CLINICAL HISTORY: nausea COMPARISON: None FINDINGS: Sonographic images of the right upper quadrant were obtained. The pancreas is partially obscured.The liver has an unremarkable appearance.The gallbladder appears normal without evidence of gallstones.There is no evidence of biliary ductal dilatation.The common duct measures 3 mm. Limited images of the right kidney are unremarkable. IMPRESSION: Unremarkable right upper quadrant ultrasound. Reviewed, Interpreted and Dictated by Kirill Trujillo III, MD Transcribed by Stephanie Steinberg Authenticated and [facility]
== END ==
PROVIDERS: PCP Physician Assistant; Visit Provider Physician Assistant
DX: R11.0 Nausea (principal)
CPT/HCPCS: 76705

== ENCOUNTER 2023-07-26 07:06 | Day surgery (SDC) | payer OTHER, SELFPAY ==
[2023-07-22 10:04] VITALS: BMI 33.5
[2023-07-26 08:22] LABS: Urine Pregnancy, HCG Qual. Negative (Negative)
[2023-07-26] MEDS: CYCLOPENTOLATE 2% OPHTH SOLN 2ML BOTTLE OP ×3 (08:24→08:37)
[2023-07-26] MEDS: PHENYLEPHRINE 2.5% OPHTH SOLN 2ML 0.0500000000000000028 ML OP ×3 (08:24→08:37)
[2023-07-26] MEDS: TETRACAINE 0.5% OPTH SOL 15ML OP ×3 (08:24→08:37)
[2023-07-26 08:25] VITALS: BP 142/88; PULSE 85; RESP 18; TEMP 36.5; O2SAT 99
[2023-07-26] MEDS: LACTATED RINGERS 1000ML 1,000 ML 25 ML IV (08:38)
[2023-07-26 08:41] LABS: POC Glucose,Bedside 231 (70-110)
[2023-07-26 09:43] VITALS: BP 142/65; PULSE 77; RESP 17; O2SAT 99
[2023-07-26 09:48] VITALS: BP 142/64; PULSE 76; RESP 17; O2SAT 100
[2023-07-26] MEDS: TIMOLOL 0.5% OPTH SOLN 5ML OP (09:50)
[2023-07-26] MEDS: TOBRAMYCIN/DEX OPTH SUSP 2.5ML OP (09:50)
[2023-07-26] MEDS: LIDOCAINE 1% PF 2ML AMPULE 2 ML IJ (09:51)
[2023-07-26] MEDS: MIDAZOLAM 2MG/2ML VIAL 1 MG IV (09:51)
[2023-07-26 09:53] VITALS: BP 142/65; PULSE 74; RESP 17; O2SAT 100
[2023-07-26 09:58] VITALS: BP 143/64; PULSE 73; RESP 17; O2SAT 100
[2023-07-26 10:08] VITALS: BP 125/87; PULSE 82; RESP 17; TEMP 36.3; O2SAT 98
== END 2023-07-26 10:14 | disposition home or self-care (01) ==
PROVIDERS: PCP Physician Assistant; Visit Provider Ophthalmology
PROC: (CPT 66984; principal; 2023-07-26 09:00)
DX: E11.36 Type 2 diabetes mellitus with diabetic cataract (principal); H25.091 Other age-related incipient cataract, right eye
CPT/HCPCS: 66984; 81025; 82962; V2632

== ENCOUNTER 2023-08-29 09:38 | Outpatient (CLI) | payer OTHER, SELFPAY ==
--- NOTE | 2023-08-29 09:39 | NM_ITS ---
FINAL REPORT TECHNIQUE: Millicuries of technetium 99m sulfur colloid was ingested with eggs. CLINICAL HISTORY: diabetic gastroparesis FINDINGS: GASTRIC EMPTYING SCAN Static images show normal emptying of the stomach into the small bowel. Based on the time activity curve, the estimated half-emptying time is 118 minutes. IMPRESSION: Abnormally low gastric emptying study. Reviewed, Interpreted and Dictated by Kirill Trujillo III, MD Transcribed by Alexia Fisher Authenticated and [facility]
[2023-08-29] MEDS: TC99M SULF.COLLOID;1 DOSE (UP TO 20 MCI) IV (09:58)
== END 2023-08-29 23:59 ==
LOC: RAD 09:39
PROVIDERS: PCP Physician Assistant; Visit Provider Physician Assistant
DX: E11.43 Type 2 diabetes mellitus with diabetic autonomic (poly)neuropathy (principal); K31.84 Gastroparesis; Z79.4 Long term (current) use of insulin
CPT/HCPCS: 78264; A9541

== ENCOUNTER 2024-07-15 12:09 | Emergency (ER) | payer OTHER, SELFPAY ==
[2024-07-15 12:18] VITALS: BP 150/90; PULSE 85; RESP 16; TEMP 37.3; O2SAT 98; BMI 30.2
--- NOTE | 2024-07-15 12:44 | ED_ITS ---
<Statement entered by Gordo Vitale MD - 07/15/24 14:14> I was consulted by the LINDSEY, and we discussed the complexity of the problems being addressed. I approved the treatment and management plan for this patient's care in the emergency department, thus performing a substantive portion of the medical decision making. Gordo Vitale MD, PATRICIA, FACEP Discharge Plan Disposition Patient Disposition: Home, Self-Care Condition: Good Prescriptions Prescriptions: New ibuprofen 600 mg tablet 600 mg PO TID Qty: 10 0RF penicillin V potassium 500 mg tablet 500 mg PO BID Qty: 20 0RF No Action insulin lispro 100 unit/mL cartridge 30 unit SQ AC Qty: 15 1RF (DME) Dexcom G6 Transmitter Device See Rx Instructions .ROUTE .MEDSUPPLY Qty: 1 0RF Rx Instructions: As directed insulin glargine 100 unit/mL solution 46 unit SQ HS Qty: 10 3RF (DME) insulin syringe-needle U-100 [Sure Comfort Insulin Syringe] 1 mL 31 gauge x 5/16 syringe See Rx Instructions .ROUTE .MEDSUPPLY Qty: 100 5RF Rx Instructions: As directed levothyroxine [Synthroid] 88 mcg tablet 88 mcg PO DAILY (DME) pen needle, diabetic [BD Ultra-Fine Micro Pen Needle] 32 gauge x 1/4 needle See Rx Instructions .ROUTE .MEDSUPPLY Qty: 100 1RF Rx Instructions: As directed (DME) Dexcom G6 Sensor Device See Rx Instructions .ROUTE .COMPLEX Qty: 3 0RF Dose Instruction: CHANGE EVERY 10 DAYS Rx Instructions: CHANGE EVERY 10 DAYS multivitamin Tablet 1 tab PO DAILY Referrals Follow up/Referrals: Diya Moore PA [Primary Care Provider] - See instructions Activity Restrictions/Add. Instructions Additional Instructions/Restrictions: Increase your fluid intake. Take acetaminophen and ibuprofen [id number] for symptomatic relief. Follow-up with dentistry tomorrow as scheduled. Return to the ED for worsening of condition. Clinical Impressions Clinical Impression: Pain, dental Print Language Print Language: Chinese Discharge ED Provider: Gordo Vitale General Adult [facility] General Chief complaint: Dental/Oral Stated complaint: tooth pain Time Seen by Provider: 07/15/24 12:45 Mode of Arrival: Ambulatory Source of Information: Patient Limitations: No Limitations Description of Symptoms (Recalled from ER Triage Doc. by RN): Patient presents to triage with right tooth #27 pain. States she has a known cavity which she states she has a dentist appointment tomorrow. States she has been taking Tylenol, Ibuprofen, and Excedrin. States, I'm not here for drugs. I just need antibiotics or something. Related Data Home Medications ?Medication ?Instructions ?Recorded ?Confirmed levothyroxine 88 mcg tablet 88 mcg PO DAILY 04/28/23 07/15/24 (Synthroid) multivitamin 1 tab PO DAILY 07/22/23 07/15/24 Previous Rx's ?Medication ?Instructions ?Recorded insulin lispro 100 unit/mL 30 unit (0.3 mL) SQ AC Diabetes 02/11/22 subcutaneous cartridge #15 mL pen needle, diabetic 32 gauge x #100 ea 03/24/2206/02 (BD Ultra-Fine Micro Pen Needle) blood-glucose transmitter (Dexcom #1 ea 03/15/23 G6 Transmitter device) insulin glargine 100 unit/mL 46 unit (0.46 mL) SQ HS Diabetes 03/15/23 subcutaneous solution #10 mL insulin syringe-needle U-100 1 mL #100 ea 03/15/23 31 gauge x 10/12 (Sure Comfort Insulin Syringe) blood-glucose sensor (Dexcom G6 #3 ea 04/18/23 Sensor device) ibuprofen 600 mg tablet 600 mg PO TID #10 tabs 07/15/24 penicillin V potassium 500 mg 500 mg PO BID #20 tabs 07/15/24 tablet Allergies Allergy/AdvReac Type Severity Reaction Status Date / Time No Known Allergies Allergy Verified 07/15/24 12:24 [facility] Disclaimer: The information contained in this section may have been updated after the patient was seen, as this information can be updated by other users. Medical History Hypothyroid History of diabetic retinopathy Bipolar I disorder Kidney lesion Liver lesion Diabetes mellitus, insulin dependent (IDDM), uncontrolled Hepatic adenoma Diabetes mellitus Surgical History History of eye surgery History of tonsillectomy Family History (Updated 11/24/23 @ 16:15 by TALAT Coates) Grandfather Family history non-contributory Grandmother Cancer Other Anemia Coronary artery disease Diabetes Social History (Updated 11/24/23 @ 16:17 by TALAT Coates) Smoking Status: Never smoker second hand exposure: Yes alcohol intake: never substance use type: former substance user, marijuana and other details: Ibuprofen 800mg; 4 (200mg) OTC current occupational status: unemployed Travel in the last 8 weeks: None household members: none housing: other marital status: single number of children: 1 caffeine: Yes do you feel safe at home: Yes victim of physical abuse: No victim of emotional abuse: No victim of sexual abuse: No would you like helpful sources: No Have you lived/traveled outside [place] in past 30 days?: No Contact w/someone who lives/traveled outside [place] past 30 days?: No Exposure to someone with infectious disease in past 14 days?: No Do you have a fever (greater than 100.4 F or 38 C)?: No Have you tested positive for COVID-19: No Exposed to someone with COVID-19 in past 14 days?: No Do you have a sore throat?: No Do you have a cough?: No Do you have any weakness?: No Do you have any diarrhea?: No Are you experiencing any unusual bleeding?: No Do you have any muscle aches/pain?: No Do you have any abdominal pain?: No Are you experiencing loss of taste or smell?: No Other Medical History Have you received the Flu Vaccine for this season: No Have you received the Pneumonia Vaccine: No ROS Obtained: Yes Systems reviewed as appropriate & no additional complaints except as documented Physical Exam General General appearance: alert and in no apparent distress Head Head exam: atraumatic, normocephalic and other (Gum tenderness around tooth #5, no abscess visualized) Eye Eye exam: Present normal appearance and PERRL ENT ENT exam: Present normal exam Neck Neck exam: Present normal inspection Chest Chest inspection: Present normal inspection and symmetric chest wall rise; Absent tenderness Respiratory Respiratory exam: Present normal lung sounds bilaterally Cardiovascular Cardiovascular exam: Present regular rate Abdominal Exam Abdominal exam: Present soft and normal bowel sounds; Absent tenderness Extremities Exam Extremities exam: Present normal inspection and full ROM Back Exam Back exam: Present normal inspection and full ROM Neurological Exam Neurological exam: Present alert and oriented X3 Psychiatric Psychiatric exam: Present normal affect and normal mood Skin Skin exam: Present warm and dry Medical Decision Making Medical Records Screening: Per USPSTF and CDC recommendations, given the prevalence of disease in our region, it is our hospital?s policy to screen for HIV and viral Hepatitis for all patients aged 18 and over and those with ongoing risk factors. Akash Inquiry Pt receiving controlled substance: No Akash was queried for this patient: No Vital Signs: 07/15/24 12:18 Temperature 99.2 F Temperature Source Oral Pulse Rate [Radial] 85 Respiratory Rate 16 Blood Pressure [R Arm] 150/90 H Blood Pressure Mean [R Arm] 110 Blood Pressure Source [R Arm] Automatic Cuff 02 Sat by Pulse Oximetry 98 Oxygen Delivery Method Room Air Orders (Tests/Meds): ED MEDICATIONS Generic Name Dose Route Start Last Admin Trade Name Freq PRN Reason Stop Dose Admin Oxycodone/Acetaminophen 1 each 07/15/24 12:48 07/15/24 12:56 Oxycodone 5mg W/Apap 325mg Tablet PO 07/15/24 12:49 1 each ONCE ONE Administration Medical Decision Narrative: In summary, patient is a 29-year-old female with no significant PMHx other than poor dental health who presents to the ED for complaints of right upper dental pain. Patient states she has an appointment with dentistry tomorrow to have a broken tooth removed and a root canal performed. Patient states she is having pain at the site of the tooth, tenderness a at surrounding gums. Has not taken any medication prior to arrival. Has not been on any recent antibiotics. Denies any other medical complaints at this time. Upon initial physical exam, airway is patent. She has poor dental health, gum tenderness around tooth number 5. Denies fever, chills, body aches, headache, posterior neck pain, chest pain, shortness of breath, dysuria. Patient given 2 thoughts for symptomatic relief. Administered oxycodone. Discussed with patient she will need to follow-up with dentistry as scheduled tomorrow. I placed her on Pen-Vee K and gave her prescription for ibuprofen. We discussed return precautions to the ED and patient verbalized understanding. Critical Care Critical Care Time Critical Care Time: No
--- NOTE | 2024-07-15 12:46 | PC.NURSE ---
AB RN rounded on the pt. no new complaints at this time. no needs voiced. call marquis in reach.
--- NOTE | 2024-07-15 12:46 | PC.NURSE ---
Provider currently in with patient. Dental balls given to patient and explained. Patient acknowledged understanding and placed one in. Voiced no other questions or concerns at this time.
[2024-07-15] MEDS: OXYCODONE 5MG W/APAP 325MG TABLET 1 EACH PO (12:56)
[2024-07-15 13:04] VITALS: BP 149/62; BP 150/90; PULSE 71; PULSE 85; RESP 16; RESP 18; TEMP 36.8; TEMP 37.3; O2SAT 99
== END 2024-07-15 13:05 | disposition home or self-care (01) ==
PROVIDERS: Emergency Provider Student in an Organized Health Care Education/Training Program; PCP Physician Assistant
DX: K08.89 Other specified disorders of teeth and supporting structures (principal)
CPT/HCPCS: 99283

== ENCOUNTER → 2024-08-07 09:07 | Day surgery (SDC) | payer OTHER, SELFPAY ==
[2024-08-06 11:21] VITALS: BMI 30.2
--- NOTE | 2024-08-07 11:39 | SUR.PREOP ---
Went to bring back pt. at 1035 am and could not find her. Checked multiple waiting rooms and called her phone with no answer. At 1130 am attempted to call pt again and she answered stating she has to leave due to childcare issues. Discussed calling Dr. Peck's office if she would like to be rescheduled.
== END ==
LOC: OUTP 09:08
PROVIDERS: PCP Physician Assistant; Visit Provider Ophthalmology
PROC: (CPT 66821; principal; 2024-08-07 11:30)
DX: Z53.21 Procedure and treatment not carried out due to patient leaving prior to being seen by health care provider (principal)

== ENCOUNTER 2024-11-22 05:11 | Observation (INO) | payer OTHER, SELFPAY ==
[2024-11-22] VITALS (8 sets, daily range): BP systolic 117–144; BP diastolic 62–78; PULSE 94–108; RESP 13–25; TEMP 36.8–37; O2SAT 97–99; BMI 30.2
--- NOTE | 2024-11-22 05:15 | HMH.EDGENADL ---
Discharge Plan Disposition Patient Disposition: Admitted Prescriptions Prescriptions: No Action (DME) Dexcom G6 Transmitter Device See Rx Instructions .ROUTE .MEDSUPPLY Qty: 1 0RF Rx Instructions: As directed (DME) insulin syringe-needle U-100 [Sure Comfort Insulin Syringe] 1 mL 31 gauge x 5/16 syringe See Rx Instructions .ROUTE .MEDSUPPLY Qty: 100 5RF Rx Instructions: As directed levothyroxine [Synthroid] 88 mcg tablet 88 mcg PO DAILY (DME) pen needle, diabetic [BD Ultra-Fine Micro Pen Needle] 32 gauge x 1/4 needle See Rx Instructions .ROUTE .MEDSUPPLY Qty: 100 1RF Rx Instructions: As directed (DME) Dexcom G6 Sensor Device See Rx Instructions .ROUTE .COMPLEX Qty: 3 0RF Dose Instruction: CHANGE EVERY 10 DAYS Rx Instructions: CHANGE EVERY 10 DAYS multivitamin Tablet 1 tab PO DAILY ascorbic acid (vitamin C) [Vitamin C] 1,000 mg Tablet 1 g PO DAILY cholecalciferol (vitamin D3) [Vitamin D3] 50 mcg (2,000 unit) Capsule 50 mcg PO DAILY insulin glargine 100 unit/mL solution 47 unit SQ HS insulin lispro 100 unit/mL cartridge 0 unit SQ AC Referrals Follow up/Referrals: Cathleen Rubin APRN [Primary Care Provider, Family Practice] - See instructions Clinical Impressions Clinical Impression: DKA (diabetic ketoacidosis), Cough Instructions Patient Instructions: DI for Hyperglycemia -- Adult Print Language Print Language: Divehi Discharge ED Provider: Nick Aranda General Adult HPI General Chief complaint: Hyper/Hypoglycemia Stated complaint: vomiting, high glucose, trouble breathing Time Seen by Provider: 11/22/24 05:15 History of Present Illness HPI narrative: 29-year-old female with history of type 1 diabetes and hypothyroidism presents for cough, sore throat, shortness of breath, hyperglycemia at home. She has an automatic insulin administration device, but her blood sugars have been in the 300s and 400s at home over the last several days. She denies fever at home. Denies any urinary symptoms. Reports cough is nonproductive. Related Data Home Medications ?Medication ?Instructions ?Recorded ?Confirmed levothyroxine 88 mcg tablet 88 mcg PO DAILY 04/28/23 08/06/24 (Synthroid) multivitamin 1 tab PO DAILY 07/22/23 08/06/24 ascorbic acid (vitamin C) 1,000 mg 1 g PO DAILY 08/06/24 08/06/24 tablet (Vitamin C) cholecalciferol (vitamin D3) 50 50 mcg PO DAILY 08/06/24 08/06/24 mcg (2,000 unit) capsule (Vitamin D3) insulin glargine 100 unit/mL 47 unit SQ HS Diabetes 08/06/24 08/06/24 subcutaneous solution insulin lispro 100 unit/mL 0 unit SQ AC Diabetes 08/06/24 08/06/24 subcutaneous cartridge Previous Rx's ?Medication ?Instructions ?Recorded pen needle, diabetic 32 gauge x #100 ea 03/24/22 1/4 (BD Ultra-Fine Micro Pen Needle) blood-glucose transmitter (Dexcom #1 ea 03/15/23 G6 Transmitter device) insulin syringe-needle U-100 1 mL #100 ea 03/15/23 31 gauge x 5/16 (Sure Comfort Insulin Syringe) blood-glucose sensor (Dexcom G6 #3 ea 04/18/23 Sensor device) Allergies Allergy/AdvReac Type Severity Reaction Status Date / Time No Known Allergies Allergy Verified 08/06/24 11:14 [facility] Disclaimer: The information contained in this section may have been updated after the patient was seen, as this information can be updated by other users. Medical History (Updated 11/22/24 @ 06:33 by Nick Aranda MD) Hx of cataract Cataract Hypothyroid History of diabetic retinopathy Bipolar I disorder Kidney lesion Liver lesion Diabetes mellitus, insulin dependent (IDDM), uncontrolled Hepatic adenoma Diabetes mellitus Surgical History History of eye surgery History of tonsillectomy Family History Grandfather Family history non-contributory Grandmother Cancer Other Anemia Coronary artery disease Diabetes Social History (Updated 08/06/24 @ 11:18 by Marilou Vela RN) Smoking Status: Current every day smoker tobacco type: cigarettes packs per day: 1 second hand exposure: Yes alcohol intake: never substance use type: former substance user, marijuana and other details: Ibuprofen 800mg; 4 (200mg) OTC current occupational status: unemployed Travel in the last 8 weeks?: None household members: none housing: other marital status: single number of children: 1 caffeine: Yes do you feel safe at home: Yes victim of physical abuse: No victim of emotional abuse: No victim of sexual abuse: No would you like helpful sources: No Have you lived/traveled outside US in past 30 days?: No Contact w/someone who lives/traveled outside US past 30 days?: No Exposure to someone with infectious disease in past 14 days?: No Do you have a fever (greater than 100.4 F or 38 C)?: No Have you tested positive for COVID-19?: No Exposed to someone with COVID-19 in past 14 days?: No Do you have a sore throat?: No Do you have a cough?: No Do you have any weakness?: No Do you have any diarrhea?: No Are you experiencing any unusual bleeding?: No Do you have any muscle aches/pain?: No Do you have any abdominal pain?: No Are you experiencing loss of taste or smell?: No Other Medical History Have you received the Flu Vaccine for this season: No Have you received the Pneumonia Vaccine: No ROS Obtained: Yes All systems reviewed & no additional complaints except as documented Physical Exam General General appearance: alert and in no apparent distress Head Head exam: atraumatic and normocephalic Eye Eye exam: Present normal appearance, PERRL and EOMI ENT ENT exam: Present normal oropharynx and normal external ear exam Neck Neck exam: Present normal inspection and full ROM Chest Chest inspection: Present normal inspection and symmetric chest wall rise; Absent tenderness Respiratory Respiratory exam: Present normal lung sounds bilaterally; Absent respiratory distress Cardiovascular Cardiovascular exam: Present regular rate and normal rhythm Abdominal Exam Abdominal exam: Present soft; Absent distention, tenderness or guarding Extremities Exam Extremities exam: Present normal inspection; Absent edema or joint swelling Back Exam Back exam: Present normal inspection; Absent tenderness Neurological Exam Neurological exam: Present alert and oriented X3; Absent motor sensory deficit Psychiatric Psychiatric exam: Present normal affect and normal mood Skin Skin exam: Present warm, dry and normal color Lymphatic Lymphatic Findings: no adenopathy Medical Decision Making Medical Records Medical records reviewed: Yes I reviewed the patient's medical records. Screening: Per USPSTF and CDC recommendations, given the prevalence of disease in our region, it is our hospital?s policy to screen for HIV and viral Hepatitis for all patients aged 18 and over and those with ongoing risk factors. Akash Inquiry Pt receiving controlled substance: No Akash was queried for this patient: No Vital Signs: 11/22/24 05:22 Temperature 98.5 F Temperature Source Oral Pulse Rate [Radial] 108 H Respiratory Rate 20 Blood Pressure [Right Arm] 126/74 Blood Pressure Mean [Right Arm] 91 Blood Pressure Position [Right Arm] Sitting 02 Sat by Pulse Oximetry 98 Oxygen Delivery Method Room Air Lab Data Lab results reviewed: Yes I reviewed the patient's lab results. Lab Results 11/22/24 05:21: VBG pH 7.26 L, VBG pCO2 41.3, VBG pO2 34.6, VBG HCO3 18.1 L, VBG Total CO2 19.3 L, VBG O2 Saturation 66.1, VBG Base Excess -9.0 L, VBG Lactic Acid 3.9 H 11/22/24 05:30: WBC 13.8 H, RBC 5.11, Hgb 15.8, Hct 45.4, MCV 88.8, MCH 30.9, MCHC 34.8, RDW 11.0 L, Plt Count 296, MPV 10.0, Neut % (Auto) 79.0, Lymph % (Auto) 11.6, [place] % (Auto) 7.2, Eos % (Auto) 0.5, Baso % (Auto) 1.3, Neut # (Auto) 10.9 H, Lymph # (Auto) 1.6, [place] # (Auto) 1.0, Eos # (Auto) 0.1, Baso # (Auto) 0.2, Sodium 133 L, Potassium 4.4, Chloride 95 L, Carbon Dioxide 18 L, Anion Gap 24.4 H, BUN 11, Creatinine 0.80, Estimated Creat Clear 133, Estimated GFR 86, Est GFR ( Amer) 104, Glucose 496 H*, Calcium 9.7, Magnesium 1.5 L, Total Bilirubin 1.3, AST 28, ALT 22, Alkaline Phosphatase 107, Total Protein 9.3 H, Albumin 5.2 H, Globulin 4.1 H, Albumin/Globulin Ratio 1.3, Lipase 26, TSH 3.33, Thyroxine (T4) 16.3 H, Serum HCG, Qual Negative, Acetone Level Small 11/22/24 05:30 11/22/24 05:30 Orders (Tests/Meds): ED MEDICATIONS Generic Name Dose Route Start Last Admin Trade Name Freq PRN Reason Stop Dose Admin Lactated Ringer's 1,000 mls @ 999 mls/hr 11/22/24 05:30 11/22/24 05:32 Lactated Ringer's 1000 Ml Bag IV 11/22/24 06:30 999 mls/hr .Q1H1M KING Administration Sodium Chloride 1,000 mls @ 150 mls/hr 11/22/24 08:00 Sod Chlor 0.9% 1000ml Bag IV 12/22/24 07:59 .Q6H40M KING Insulin Human Regular 100 unit 101 mls @ 8.08 mls/hr 11/22/24 06:00 11/22/24 06:21 / Sodium Chloride IV 12/22/24 05:59 8 unit/hr .[id number] KING 8.08 mls/hr Protocol Administration 8 UNIT/HR Lactated Ringer's 1,000 mls @ 999 mls/hr 11/22/24 06:15 Lactated Ringer's 1000 Ml Bag IV 11/22/24 07:15 .Q1H1M KING Discontinued Medications Generic Name Dose Route Start Last Admin Trade Name Freq PRN Reason Stop Dose Admin Magnesium Sulfate 2 gm in 50 mls @ 150 mls/hr 11/22/24 06:02 11/22/24 06:20 Magnesium Sulfate 2gm/50ml Premix IV 11/22/24 06:21 150 mls/hr ONCE ONE Administration Ondansetron HCl 4 mg 11/22/24 05:22 11/22/24 05:32 Ondansetron 4mg/2ml Vial IV 11/22/24 05:23 4 mg ONCE ONE Administration ORDERS Category Date Time Status CXR 2 view (NOT portable) [XR chest 2V] Stat Exams 11/22/24 05:20 Taken Acetone, Serum (Rapid) Stat Lab 11/22/24 05:30 Completed Acetone, Serum (Rapid) Stat Lab 11/22/24 06:00 Ordered CBC w/Auto Diff [Complete Blood Count Auto Diff] Stat Lab 11/22/24 05:30 Completed CMP [Comprehensive Metabolic Panel] Stat Lab 11/22/24 05:30 Completed Full Resp Panel w/COVID ([facility]) Routine Lab 11/22/24 05:59 Ordered HCG Qualitative, Serum Stat Lab 11/22/24 05:30 Completed HIV Combo Stat Lab 11/22/24 05:30 Received Hemoglobin A1C Stat Lab 11/22/24 06:00 Ordered Hepatitis C Ab Qual. W/ RFX Stat Lab 11/22/24 05:30 Received Lactate Venous Stat Lab 11/22/24 05:34 Ordered Lipase Stat Lab 11/22/24 05:30 Completed Magnesium Stat Lab 11/22/24 05:30 Completed Phosphorous Stat Lab 11/22/24 06:00 Ordered T4 (Thyroxine) Stat Lab 11/22/24 05:30 Completed TSH [Thyroid Stimulating Hormone] Stat Lab 11/22/24 05:30 Completed UA [Urinalysis and Microscopic] Stat Lab 11/22/24 05:21 Ordered Blood Culture Stat Micro 11/22/24 05:22 Ordered VBG [Venous Blood Gas] Stat RT 11/22/24 05:21 Completed EKG Request [ECG Request] Stat Y 11/22/24 06:02 Ordered ECG Data Tracing #1: I reviewed this ECG and interpreted as documented below: ECG initial impression date: 11/22/24 ECG initial impression time: 06:10 ECG normal with no acute: arrhythmias, ischemia, conduction abnormalities, chamber hypertrophy Tissue Perfus/Sepsis Re-Eval Sepsis Re-Evaluation Performed: Yes Date Performed: 11/22/24 Time Performed: 06:05 Medical Decision Narrative: 29-year-old female with history of type 1 diabetes, hypothyroidism presents for hypoglycemia, sore throat cough and shortness of breath over the last few days. History was obtained via interactive discussion with patient. On arrival, patient is [afebrile, hemodynamically stable, satting appropriately, alert, oriented x4, GCS 15], moving all extremities spontaneously. Full physical exam performed and significant for mildly diminished breath sounds on the right. Clear oropharynx. Differential includes but is not limited to DKA, HHS, viral/bacterial pneumonia, dehydration, UTI, bacteremia Patient was given 2 L LR bolus for symptomatic management and correction of underlying abnormalities. Workup initiated including VBG CBC CMP UA ketones lactate blood cultures test chest x-ray viral panel EKG. On re-evaluation, patient [remains afebrile, HD stable.] Laboratory workup independently interpreted by me and significant for DKA with pH 7.26, anion gap 24, blood sugar 500 mild hypomagnesemia, normal potassium, mildly elevated lactic Imaging independently interpreted by me and significant for focal consolidation, does have a viral appearance. See radiology read for full review of final results. Given patient history, exam and workup, patient's presentation most likely represents acute DKA. DKA protocol was initiated. No obvious bacterial infectious source at this time based on history and exam, I did not start empiric antibiotics at this point. Interactive discussion was had with the hospitalist on-call for admission for DKA. Procedures Risk/Benefits of Procedure(s) Were Explained: Yes Critical Care Critical Care Time Critical Care Time: Yes Attestation: On 11/22/24, the high probability of a clinically significant, sudden or life threatening deterioration of the following system(s) required my full and direct attention, intervention and personal management. The time I documented below is in addition to time spent performing reported procedures but includes the following listed in this critical care notation. Total Time Total Critical Care Time: 45
--- NOTE | 2024-11-22 05:20 | XR_ITS ---
PROCEDURE INFORMATION: Exam: XR Chest Exam date and time: 11/22/2024 6:02 AM Age: 29 years old Clinical indication: Cough and shortness of breath; Additional info: Cp, SOA, cough TECHNIQUE: Imaging protocol: Radiologic exam of the chest. Views: 2 views. COMPARISON: MR ABDOMEN WO/W CON 10/07/2020 10:08 AM FINDINGS: Lungs: Unremarkable. No consolidation. Pleural spaces: Unremarkable. No pleural effusion. No pneumothorax. Heart/Mediastinum: Unremarkable. No cardiomegaly. Bones/joints: Unremarkable. IMPRESSION: No acute findings.
--- OUTSIDE RECORDS SUMMARY | 2024-11-22 05:21 | XMS_ITS | Clinical Summary ---
Author Organization [facility] Address [address] [place] [address] Care Team Providers Care Cooking Teacher Name Role Phone AvaJennifer huynhtatum Beatrice PETR Primary Care Provider [phone] Unavailable [phone] Allergies No known active allergies Medications Multiple Vitamin (multivitamin) tablet Take 1 tablet by mouth daily. Active omega-3 (Fish Oil) 1000 MG capsule Active ascorbic acid (vitamin C) 1000 MG tablet Take 1 tablet (1,000 mg) by mouth daily. Active cholecalciferol (Vitamin D3) 25 MCG (1000 UT) tablet Take 1 tablet (1,000 Units) by mouth daily. Active Synthroid 88 MCG tabletIndications :Hypothyroidism, unspecified type Take 1 tablet (88 mcg) by mouth daily. 90 tablet 3 5 08/04/19 26 Active insulin glargine (Lantus SoloStar) 100 UNIT/ML injection penIndications:Ty pe 1 diabetes mellitus with other specified complication (CMS/HCC) Inject 47 Units under the skin nightly. 45 mL 5 Active insulin lispro (HumaLOG KWIKPEN) 100 UNIT/ML injection penIndications:Ty pe 1 diabetes mellitus with other specified complication (CMS/HCC) Inject 10-20 units before meals plus correction scale 1:25>150, MDD 100u 90 mL 1 5 Active glucose blood test stripIndications: Type 1 diabetes mellitus with other specified complication (CMS/HCC) Use as instructed to check blood glucose 4-6 times a day in event of CGM failure 200 each 12 5 Active pen needle, diabetic (BD Pen Needle Micro U/F) 32G X 6 MM miscIndications:T ype 1 diabetes mellitus with other specified complication (CMS/HCC) Inject 4x daily. 200 each 11 5 Active Continuous Glucose Sensor (Dexcom G7 Sensor) misc 1 sensor every 10 (ten) days. 3 each 5 5 Active Insulin Lispro (Admelog, HumaLOG) 100 UNIT/ML injection vial To use in insulin pump MDD 100 units 30 mL 2 5 Active Omnipod 5 [id number] Pods Gen 5 (Omnipod5) misc Change pod every 2 days 15 each 3 5 Active Active Problems Problem Noted Date Diagnosed Date Type 1 diabetes mellitus with other specified co mplication 08/06/2021 Retinopathy 08/06/2021 Nicotine dependence with nicotine-induced disord er 08/06/2021 Hypothyroidism 06/24/2021 Neuropathy 09/18/2018 Anxiety and depression 01/09/2014 Resolved Problems Problem Noted Date Diagnosed Date Resolved Date Type 1 diabetes mellitus with hyperglycemia 06/21/2023 06/21/2023 Maternal care for other (felix pected) abnormality and damage, not applicable or unspecified 08/20/2021 04/26/2022 Late care affecting 06/24/2021 04/26/2022 Pre-existing type 1 diabetes mellitus, in , unspecified trimester 06/24/2021 022 Encounters Date Type Department Care Team Description 08/30/2024 9:30 AM EDT Education [facility] Diabetes Education [address] [place] [address] Type 1 diabetes mellitus with other specified complication (CMS/HCC) 08/30/2024 Refill [facility] Diabetes Education [place] [address] 08/30/2024 Travel 08/27/2024 Orders Only [facility] Endocrinology [place] [address] Paco Chan MD 08/22/2024 10:00 AM EDT Education [facility] Diabetes Education [address] [place] [address] Type 1 diabetes mellitus with other specified complication (CMS/HCC) (Primary Dx) 08/22/2024 Telephone [facility] Diabetes Education [address] [place] [address] 08/22/2024 Orders Only [facility] Diabetes Education [address] [place] [address] Type 1 diabetes mellitus with other specified complication (CMS/HCC) (Primary Dx) 08/22/2024 Travel from Last 3 Months Immunizations Immunization Administration Dates Next Due Influenza, Unspecified 04/23/2008 Family History Medical History Relation Name Comments Diabetes type I Maternal Grandfather Diabetes type II Maternal Grandfather Diabetes Maternal Grandmother Diabetes type II Maternal Grandmother Hyperlipidemia Maternal Grandmother Thyroid disease Maternal Grandmother Diabetes type II Other Diabetes Paternal Grandfather Hyperlipidemia Paternal Grandfather Stroke Paternal Grandfather Relation Name Status Comments Maternal Grandfather Maternal Grandmother Other Paternal Grandfather Social History Tobacco Use Types Packs/Day Years Used Date Smoking Tobacco: Every Day Cigarettes Smokeless Tobacco: Never Tobacco Cessation:Ready to Q uit: Not Asked; Counseling Given: Not Answered Alcohol Use Standard Drinks/Week Comments No 0 (1 standard drink = 0.6 oz pur e alcohol) Comments No Sex and Gender Information Value Date Recorded Sex Assigned at Not on file Legal Sex Female 8:17 PM EDT Gender Identity Not on file Sexual Orientation Not on file Last Filed Vital Signs Vital Sign Reading Time Taken Comments Blood Pressure 123/80 08/03/2024 10:00 AM EST Pulse 94 08/03/2024 10:00 AM EST Temperature 36.8 C (98.3 F) 12/03/2019 3:47 PM EDT Respiratory Rate - - Oxygen Saturation - - Inhaled Oxygen Concentration - - Weight 81.7 kg (180 lb 1.9 oz) 08/03/2024 10:00 AM EST Height 162.6 cm (5' 4 ) 08/03/2024 10:00 AM EST Body Mass Index 30.92 08/03/2024 10:00 AM EST Plan of Treatment Upcoming Encounters Date Type Department Care Team (Late st Contact Info) Description 11/23/2024 10:00 AM EDT Office Visit [facility] [address] [place] [address] (2), Paco Chan Fellow Health Maintenance Due Date Last Done Comments [facility]-Depression Screening 1997 [facility]-HIV Screening 1997 [facility]-Hepatitis C Screening 1997 [facility]-/Child/Adol SDOH Screenings 1997 [facility]-Varicella Vaccines (2 of 2 - 2-dose childhood series) 11/28/2001 09/05/2001 [facility]-IPV Vaccines (3 of 3 - 4-dose series) 01/28/2002 07/28/2001, 08/25/1999 [id number] Vaccine (#1) 2002 Diabetes: Dental Exam 2007 HPV Vaccines (3 - 2-dose series) 10/01/2009 07/09/2009, 05/06/2009, 12/18/2008 [facility]-Hepatitis A Vaccines (2 of 2 - 2-dose series) 08/12/2010 02/12/2010 [facility]- SDOH Screenings 2015 [facility]-Adult SDOH Screenings 2015 [facility]-Hepatitis B Vaccines (1 of 3 - 19+ 3-dose series) 2016 [facility]-Pneumococcal Vaccine: Pediatrics (0 to 5 Years) and At-Risk Patients (6 to 49 Years) (1 of 2 - PCV) 2016 [facility]-Pap Smear 2018 [facility]-DTaP,Tdap,and Td Vaccines (3 - Td or Tdap) 12/18/2018 12/18/2008, 04/13/1999 [facility]-Diabetes: Hemoglobin A1C 11/02/2024 08/03/2024, 06/20/2023, 04/26/2022, Additional history exists [facility]-Influenza Vaccine (Season Ended) 2025 02/12/2010, 04/23/2008 [facility]-Zoster Vaccines (1 of 2) 2047 09/05/2001 [facility]-HIB Vaccines Completed 08/25/1999 [facility]-Obesity Intervention Completed 025, 08/03/2024, 06/20/2023 [facility]-Rotavirus Vaccines Aged Out No lo nger eligible based on patient's age to complete this topic Procedures Procedure Name Priority Date/Time Associated Diagnosis Comments POCT GLYCOSYLATED HEMOGLOBIN (HGB A1C) Routine 08/03/2024 11:22 AM EST Type 1 diabetes mellitus with other specified complication (CMS/HCC) from Last 3 Months or Most Recently Relevant to Health Maintenance Results * POCT glycosylated hemoglobin (Hb A1C) (08/03/2024 11:22 AM EST) POCT Hemoglobin A1C 9.5 <5.7% Non-Diabet ic % [employer] [facility] Kit Lot Number [id number] [facility] Kit Expiration Date 04/28/26 [facility] Blood Venous blood specimen / Unknown 08/03/2024 11:22 AM EST Paco Chan MD POINT OF CARE TEST ENTER/EDIT O RDERABLES Edited Result - Final [facility] [address] [place] [address] from Last 3 Months or Most Recently Relevant to Health Maintenance Insurance [employer] [facility] MEDICAID Care Teams Cooking Teacher Relationship Specialty Start Date End Date Mary Lou Jensen APRN [address] [place] [address] PCP - General 10/10/[address] [address] [employer] Equipment Tender 08/30/24
--- OUTSIDE RECORDS SUMMARY | 2024-11-22 05:21 | XMS_ITS ---
Author Organization [facility] Address [address] [id number] Care Team Providers Care Risk Tech Name Role Phone Mary Lou Jensen APRN Primary Care Provider [phone] Unavailable [phone] [employer] Status:Active (Active) Start date:08/30/2024 Enrollment date:08/30/2024 Enrollment reason:Referred by provider Case Team Name Relationship Phone Daily Rivera RD(Responsible Staff) Diabetes Ed ucator [phone] Continued Care and Services Coordination
[2024-11-22] MEDS: ONDANSETRON 4MG/2ML VIAL 4 MG IV (05:32)
[2024-11-22] MEDS: LACTATED RINGERS 1000ML 1,000 ML 999 ML IV ×2 (05:32→06:40)
--- NOTE | 2024-11-22 05:34 | PC.NURSE ---
respiratory contacted at this time and made aware of order for VBG that was sent to the lab
[2024-11-22 05:40] LABS: VBG HCO3 18.1 mmol/L (23-30); VBG Oxygen Saturation 66.1 % (50-70); VBG PCO2 41.3 mmol/L (35-51); VBG PH 7.26 mmol/L (7.31-7.41); VBG PO2 34.6 mmol/L (28-40); VBG Total CO2 19.3 mmol/L (23-27)
[2024-11-22 05:41] LABS: Lactate Venous 3.9 mmol/L (0.4-2.0)
[2024-11-22 05:45] LABS: Albumin Level 5.2 g/dl (3.5-5.0); Chloride 95 mmol/L (98-107); Potassium 4.4 mmoL/L (3.5-5.1); Sodium 133 mmol/L (136-145)
[2024-11-22 05:47] LABS: Blood Urea Nitrogen 11 mg/dl (7-17); Creatinine Clearance Estimated 133 mL/min (50-200); Estimated Glomerular Filt Rate 86 ml/min (>60); GFR (African American) 104 ML/MIN (>60)
[2024-11-22 05:48] LABS: Alanine Aminotransferase 22 U/L (12-78); Albumin/Globulin Ratio 1.3 (1.1-1.8); Alkaline Phosphatase 107 U/L (38-126); Anion Gap 24.4 mEq/L (5-15); Aspartate Amino Transferase 28 U/L (14-36); Bilirubin,Total 1.3 mg/dl (0.2-1.3); Calcium 9.7 mg/dl (8.4-10.2); Carbon Dioxide 18 mmol/L (22.0-30.0); Globulin 4.1 g/dL (1.3-3.2); Lipase 26 U/L (23-300); Magnesium 1.5 mg/dl (1.6-2.3); Total Protein,Serum 9.3 g/dl (6.3-8.2)
[2024-11-22 05:50] LABS: Basophils # 0.2 K/mm3 (0-0.2); Basophils % 1.3 % (0.1-2.0); Eosinophils # 0.1 Kmm3 (0.0-0.4); Eosinophils % 0.5 % (0.1-12.0); Hematocrit 45.4 % (37.0-47.0); Hemoglobin 15.8 g/dL (12.2-16.2); Immature Granulocytes # 0.06 10^3uL; Immature Granulocytes % 0.4 %; Lymphocytes # 1.6 K/mm3 (0.7-4.5); Lymphocytes % 11.6 % (10-50); Mean Corpuscular HGB Conc 34.8 g/dL (31.8-35.4); Mean Corpuscular Hemoglobin 30.9 pg (27.0-31.2); Mean Corpuscular Volume 88.8 fl (81-99); Monocytes % 7.2 % (1.7-9.3); Neutrophils # 10.9 K/mm3 (1.8-7.8); Nucleated Red Blood Cells # 0 10^3/uL; Nucleated Red Blood Cells % 0 %; Platelet Count 296 K/mm3 (142-424); Red Blood Count 5.11 M/mm3 (4.20-5.40); Red Cell Distribution Width-SD 35.8 fL; White Blood Count 13.8 K/mm3 (4.8-10.8)
[2024-11-22 05:54] LABS: Glucose 496 mg/dl (74-100)
--- NOTE | 2024-11-22 05:54 | PC.NURSE ---
Critical Glucose reported by Lab, 496, reported to physician
[2024-11-22 05:56] LABS: Acetone, Serum (Rapid) Small (None Detect)
[2024-11-22 05:57] LABS: HCG Qualitative, Serum Negative (Negative)
[2024-11-22 06:05] LABS: T4 (Thyroxine) 16.3 ug/dl (5.53-11.0)
--- NOTE | 2024-11-22 06:10 | ECG_ITS ---
APPROVED REPORT Exam: Resting ECG HR:98 bpm ECG Measurements Heart Rate 98 AXES IA 157 P 81 QRSd 102 QRS 116 QT 347 T 35 QTc 403 Conclusion SINUS RHYTHM POSSIBLE RIGHT VENTRICULAR HYPERTROPHY [SOME/ALL OF: PROMINENT R IN V1, LATE TRANSITION, RAD, VANDANA, SSS] ABNORMAL ECG UNCONFIRMED REPORT Electronically signed by : LUTHER AMES, 11/23/2024 04:12:08
[2024-11-22 06:19] LABS: Thyroid Stimulating Hormone 3.33 uIU/mL (0.465-4.68)
[2024-11-22] MEDS: MAGNESIUM SULFATE IN WATER 2 GM/50 ML PIGGYBACK IV (06:20)
[2024-11-22] MEDS: INSULIN REGULAR, HUMAN 100 UNIT in 0.9 % SODIUM CHLORIDE 100 ML 8.08 UNIT IV (06:21)
[2024-11-22 06:37] LABS: Hepatitis C Ab Qual. W/ RFX NEGATIVE (Negative)
[2024-11-22 06:39] LABS: HIV Combo NEGATIVE (Negative)
[2024-11-22 06:43] LABS: Adenovirus,PCR Not Detected (NotDetected); Bordetella Pertussis Not Detected (NotDetected); Chlamydophila Pneumoniae, PCR Not Detected (NotDetected); Coronavirus 19, PCR Not Detected (NotDetected); Coronavirus 229E Not Detected (NotDetected); Coronavirus NL63 Not Detected (NotDetected); Coronovirus HKU1,PCR Not Detected (NotDetected); Human Metapneumovirus Not Detected (NotDetected); Influenza A, PCR Not Detected (NotDetected); Influenza AH1, 2009 Not Detected (NotDetected); Influenza AH1, PCR Not Detected (NotDetected); Influenza AH3,PCR Not Detected (NotDetected); Influenza B, PCR Not Detected (NotDetected); Mycoplasma Pneumoniae, PCR Not Detected (NotDetected); Parainfluenza 1, PCR Not Detected (NotDetected); Parainfluenza 2, PCR Not Detected (NotDetected); Parainfluenza 3, PCR Not Detected (NotDetected); Parainfluenza 4, PCR Not Detected (NotDetected); Respiratory Syncytial Virus Not Detected (NotDetected); Rhinovirus/Enterovirus Not Detected (NotDetected)
--- NOTE | 2024-11-22 06:47 | PC.NURSE ---
Report given to Frida REAVES in the ICU.
--- NOTE | 2024-11-22 06:56 | PC.NURSE ---
Pt arrived to ICU via stretcher @0700
--- NOTE | 2024-11-22 07:00 | P.HP_ITS ---
<Statement entered by Ye Suero MD - 11/22/24 16:00> Rounded on patient after nurse practitioner. Personally examined and interviewed patient. Agree with exam findings and care plan as documented. History of Present Illness *Admission Date: 11/22/24 *Reason for visit:: Nausea and vomiting *History of present illness: Ms. Littlejohn is a 29-year-old female presents ER with complaints of nausea and vomiting. Patient has past medical history of diabetes mellitus type 1, hypothyroidism, diabetic gastroparesis, bipolar disorder, PTSD, and general anxiety disorder. Patient reports sore throat, ear pain, and cough that started on Tuesday. She states at 2200 last night she started having severe abdominal pain and nausea. She states she then started to vomit. She states she has vomited at least 7 times and continues to dry heave. She reports chest pain from vomiting and dry heaving. She also reports some shortness of breath, lightheadedness, and dizziness. She reports increased cold/hot intolerance. Patient states she does have an insulin pump but she ran out of insulin and just needs to have it refilled at the pharmacy. She states her glucometer was just reading high at home. She is also reporting some remote constipation. States last bowel movement was yesterday but some parts of it were hard to pass. She denies fever, runny nose, diarrhea, headache, or syncope. [facility] Disclaimer: The information contained in this section may have been updated after the patient was seen, as this information can be updated by other users. Medical History (Updated 11/22/24 @ 07:12 by Anjelica Motley APRN) Hx of cataract Cataract Hypothyroid History of diabetic retinopathy Bipolar I disorder Kidney lesion Liver lesion Diabetes mellitus, insulin dependent (IDDM), uncontrolled Hepatic adenoma Diabetes mellitus Surgical History History of eye surgery History of tonsillectomy Family History Grandfather Family history non-contributory Grandmother Cancer Other Anemia Coronary artery disease Diabetes Social History (Updated 08/06/24 @ 11:18 by Marilou Vela RN) Smoking Status: Current every day smoker tobacco type: cigarettes packs per day: 1 second hand exposure: Yes alcohol intake: never substance use type: former substance user, marijuana and other details: Ibuprofen 800mg; 4 (200mg) OTC current occupational status: unemployed Travel in the last 8 weeks?: None household members: none housing: other marital status: single number of children: 1 caffeine: Yes do you feel safe at home: Yes victim of physical abuse: No victim of emotional abuse: No victim of sexual abuse: No would you like helpful sources: No Have you lived/traveled outside [place] in past 30 days?: No Contact w/someone who lives/traveled outside [place] past 30 days?: No Exposure to someone with infectious disease in past 14 days?: No Do you have a fever (greater than 100.4 F or 38 C)?: No Have you tested positive for COVID-19?: No Exposed to someone with COVID-19 in past 14 days?: No Do you have a sore throat?: No Do you have a cough?: No Do you have any weakness?: No Do you have any diarrhea?: No Are you experiencing any unusual bleeding?: No Do you have any muscle aches/pain?: No Do you have any abdominal pain?: No Are you experiencing loss of taste or smell?: No Other Medical History Have you received the Flu Vaccine for this season: No Have you received the Pneumonia Vaccine: No Review of Systems Constitutional Constitutional: Reports chills, Denies fever(s) and Denies headache(s) ENT Ears, Nose, Mouth, and Throat: Reports dizziness and Denies headache(s) *Cardiovascular Cardiovascular: Reports chest pain (Associated with vomiting), Reports dyspnea and Reports lightheadedness *Respiratory Respiratory: Reports cough and Reports dyspnea *Gastrointestinal Gastrointestinal: Reports abdominal pain, Reports constipation, Reports nausea and Reports vomiting *Genitourinary Genitourinary: Reports system reviewed and no additional complaints, except as documented *Musculoskeletal Musculoskeletal: Reports system reviewed and no additional complaints, except as documented *Neurologic Neurologic: Reports dizziness and Denies headache(s) Endocrine Endocrine: Reports cold intolerance and Reports heat intolerance Meds Home Medications and Allergies Home Medications ?Medication ?Instructions ?Recorded ?Confirmed ?Type pen needle, diabetic 32 gauge x #100 ea 03/24/2207/15 Rx 1/4 (BD Ultra-Fine Micro Pen Needle) blood-glucose transmitter (Dexcom #1 ea 03/15/2307/15 Rx G6 Transmitter device) insulin syringe-needle U-100 1 mL #100 ea 03/15/23 Rx 31 gauge x /16 (Sure Comfort Insulin Syringe) blood-glucose sensor (Dexcom G6 #3 ea 04/18/23 5 Rx Sensor device) levothyroxine 88 mcg tablet 88 mcg PO DAILY 04/28/23 0 08/06/24 History (Synthroid) multivitamin 1 tab PO DAILY 07/22/2307/28 History ascorbic acid (vitamin C) 1,000 mg 1 g PO DAILY 08/06/24 History tablet (Vitamin C) cholecalciferol (vitamin D3) 50 50 mcg PO DAILY 08/06/24 History mcg (2,000 unit) capsule (Vitamin D3) insulin glargine 100 unit/mL 47 unit SQ HS Diabetes 08/06/24 History subcutaneous solution insulin lispro 100 unit/mL 0 unit SQ AC Diabetes 08/0608/06/24 History subcutaneous cartridge New Prescriptions to Start Prescriptions: Allergies Allergy/AdvReac Type Severity Reaction Status Date / Time No Known Allergies Allergy Verified 08/06/24 11:14 Exam Data for Last 24 hours Vital signs and Labs for Last 24 Hours: Temp Pulse Resp BP Pulse Ox O2 Del Method 98.5 F 95 H 18 117/62 99 Room Air 11/22/24 06:50 11/22/24 06:50 11/22/24 06:50 11/22/24 06:50 11/22/24 06:34 11/22/24 06:50 Laboratory Results - last 24 hr 11/22/24 05:21: VBG pH 7.26 L, VBG pCO2 41.3, VBG pO2 34.6, VBG HCO3 18.1 L, VBG Total CO2 19.3 L, VBG O2 Saturation 66.1, VBG Base Excess -9.0 L, VBG Lactic Acid 3.9 H 11/22/24 05:30: WBC 13.8 H, RBC 5.11, Hgb 15.8, Hct 45.4, MCV 88.8, MCH 30.9, MCHC 34.8, RDW 11.0 L, Plt Count 296, MPV 10.0, Neut % (Auto) 79.0, Lymph % (Auto) 11.6, [place] % (Auto) 7.2, Eos % (Auto) 0.5, Baso % (Auto) 1.3, Neut # (Auto) 10.9 H, Lymph # (Auto) 1.6, [place] # (Auto) 1.0, Eos # (Auto) 0.1, Baso # (Auto) 0.2, Sodium 133 L, Potassium 4.4, Chloride 95 L, Carbon Dioxide 18 L, Anion Gap 24.4 H, BUN 11, Creatinine 0.80, Estimated Creat Clear 133, Estimated GFR 86, Est GFR ( Amer) 104, Glucose 496 H*, Calcium 9.7, Magnesium 1.5 L , Total Bilirubin 1.3, AST 28, ALT 22, Alkaline Phosphatase 107, Total Protein 9.3 H, Albumin 5.2 H, Globulin 4.1 H, Albumin/Globulin Ratio 1.3, Lipase 26, TSH 3.33, Thyroxine (T4) 16.3 H, Serum HCG, Qual Negative, Acetone Level Small, HCV Ab ROZ w/Rflx PCR Qn Negative, HIV Ag/Ab Combo Qual Negative I & O for Last 24 hours: Intake & Output 11/19/24 11/20/24 11/21/24 11/22/24 23:59 23:59 23:59 23:59 Weight 79.832 kg *Routine HEENT Exam Head: Present normocephalic and atraumatic Eye: Present EOMI and PERRL ENT: Present mucous membranes moist and oropharynx clear *Routine Neck Exam Neck: Present supple and full ROM *Routine Respiratory Exam Respiratory: Present CTA bilaterally, normal respiratory effort and able to speak in complete sentences; Absent accessory muscle use or respiratory distress *Routine Cardiovascular Exam Cardiovascular: Present RRR, Normal S1 and Normal S2 *Routine Abdominal Exam Abdominal: Present soft and normoactive bowel sounds; Absent tenderness or distended *Routine Rectal Exam Rectal:: deferred *Routine Genitalia Exam Genitalia:: deferred *Routine Extremities Exam Extremities: Present full ROM, pulses intact and normal capillary refill; Absent edema *Routine Skin Exam Skin: Present intact and warm *Routine Neurological Exam Neurological: Present alert, oriented X3, CN II-XII intact and moving all extremities Assessment and Plan *Assessment and plan (1) DKA (diabetic ketoacidosis): Status: Acute Qualifiers: Diabetes mellitus complication detail: without coma Diabetes mellitus type: type 1 Qualified Code(s): E10.10 - Type 1 diabetes mellitus with ketoacidosis without coma Category: Medical Code(s): E11.10 - Type 2 diabetes mellitus with ketoacidosis without coma Plan: Insulin drip N.p.o. now NS at 150 mL an hour Fingerstick glucose every hour Nutrition consult Hemoglobin A1c pending Monitor BMP, magnesium, and phosphorus every 4 hours When blood glucose reaches 250 switch to D5 1/2 NS with 20 mEq at 125 mL an hour (2) Nausea and vomiting: Status: Acute Qualifiers: Vomiting type: unspecified Qualified Code(s): R11.2 - Nausea with vomiting, unspecified Category: Medical Code(s): R11.2 - Nausea with vomiting, unspecified Plan: N.p.o. now Zofran 4 mg every 4 hours as needed for nausea vomiting (3) Leukocytosis: Status: Acute Category: Medical Code(s): D72.829 - Elevated white blood cell count, unspecified Plan: Could be related to inflammatory process Afebrile, mildly tachycardic Respiratory panel pending Blood cultures pending, follow results and start antibiotics if indicated (4) Elevated lactic acid level: Status: Acute Category: Medical Code(s): R79.89 - Other specified abnormal findings of blood chemistry Plan: Continue IV fluids Reflex lactic acid pending Blood cultures pending, follow results and start antibiotics if indicated (5) Hypomagnesemia: Status: Acute Category: Medical Code(s): E83.42 - Hypomagnesemia Plan: 2 g given in the ER Replace as needed (6) Epigastric pain: Status: Acute Category: Medical Code(s): R10.13 - Epigastric pain Plan: Analgesics as needed (7) Cough: Status: Acute Category: Medical Code(s): R05.9 - Cough, unspecified Plan: Tessalon Perles 200 mg 3 times daily as needed for cough (8) Tobacco abuse: Status: Acute Category: Medical Code(s): Z72.0 - Tobacco use Plan: Nicotine patch Encourage smoking cessation
--- NOTE | 2024-11-22 07:05 | PC.NURSE ---
pt to the unit from the ED. pt stated im sorry but i cant stay here i have kids and a that has to work and i cant stay . pt would like to sign out AMA but is agreeable to stay until the doctor rounds this morning. pt is agreeable to this nurse assessing her but refused to answer admission or med questions because she doesnt plan to stay.
[2024-11-22 07:18] LABS: POC Glucose,Bedside 292 (70-110)
[2024-11-22 07:19] LABS: Chloride 98 mmol/L (98-107)
[2024-11-22 07:20] LABS: Potassium 4.3 mmoL/L (3.5-5.1); Sodium 133 mmol/L (136-145)
[2024-11-22 07:22] LABS: Blood Urea Nitrogen 11 mg/dl (7-17); Creatinine Clearance Estimated 179 mL/min (50-200); Estimated Glomerular Filt Rate 120 ml/min (>60); GFR (African American) 145 ML/MIN (>60)
[2024-11-22 07:23] LABS: Anion Gap 21.3 mEq/L (5-15); Calcium 8.9 mg/dl (8.4-10.2); Carbon Dioxide 18 mmol/L (22.0-30.0); Glucose 374 mg/dl (74-100); Magnesium 2.1 mg/dl (1.6-2.3); Phosphorous 4.5 mg/dl (2.5-4.5)
[2024-11-22 07:36] LABS: Hemoglobin A1C 9.3 % (4.0-6.0)
[2024-11-22 07:51] LABS: Coronavirus OC43 Detected (NotDetected)
[2024-11-22 07:53] LABS: Acetone, Serum (Rapid) Small (None Detect)
[2024-11-22 08:06] LABS: POC Glucose,Bedside 214 (70-110)
[2024-11-22 09:42] LABS: Reflex Lactic Add Lactic Reflex
--- NOTE | 2024-11-22 10:21 | EXP.DC.SUM ---
General Admission date:: 11/22/24 Discharge date: 11/22/24 HPI HPI HPI: Ms. Littlejohn is a 29-year-old female presents ER with complaints of nausea and vomiting. Patient has past medical history of diabetes mellitus type 1, hypothyroidism, diabetic gastroparesis, bipolar disorder, PTSD, and general anxiety disorder. Patient reports sore throat, ear pain, and cough that started on Tuesday. She states at 2200 last night she started having severe abdominal pain and nausea. She states she then started to vomit. She states she has vomited at least 7 times and continues to dry heave. She reports chest pain from vomiting and dry heaving. She also reports some shortness of breath, lightheadedness, and dizziness. She reports increased cold/hot intolerance. Patient states she does have an insulin pump but she ran out of insulin and just needs to have it refilled at the pharmacy. She states her glucometer was just reading high at home. She is also reporting some remote constipation. States last bowel movement was yesterday but some parts of it were hard to pass. She denies fever, runny nose, diarrhea, headache, or syncope. Hospital Course Hospital Course Hospital Course: Patient has long history of diabetes. Using a pump at home. Presented with nausea and vomiting. Found to be in DKA. Started on DKA protocol with insulin drip. 24 on presentation. On serial labs improved to 21 but still open. Patient states she was feeling somewhat better and was ready to go home. She had children to look after her and her needed to go to work. At this time she is still unstable and in DKA. States she has refills for insulin at the pharmacy and she will pick them up on her way home. Strongly encouraged her to stay and explained risks of discharge in her current state, patient adamant about going home. Signed AMA paperwork. Resume home regimen for diabetes at discharge. Of note, found to be positive for coronavirus. Likely underlying etiology for why she slipped into DKA. No specific treatment necessary. Exam Data for Last 24 hours Vital signs and Labs for Last 24 Hours: Temp Pulse Resp BP Pulse Ox O2 Del Method 98.6 F 94 H 25 H 144/78 H 98 Room Air 11/22/24 08:00 11/22/24 08:00 11/22/24 08:00 11/22/24 08:00 11/22/24 08:00 11/22/24 08:00 Laboratory Results - last 24 hr 11/22/24 05:21: VBG pH 7.26 L, VBG pCO2 41.3, VBG pO2 34.6, VBG HCO3 18.1 L, VBG Total CO2 19.3 L, VBG O2 Saturation 66.1, VBG Base Excess -9.0 L, VBG Lactic Acid 3.9 H 11/22/24 05:30: WBC 13.8 H, RBC 5.11, Hgb 15.8, Hct 45.4, MCV 88.8, MCH 30.9, MCHC 34.8, RDW 11.0 L, Plt Count 296, MPV 10.0, Neut % (Auto) 79.0, Lymph % (Auto) 11.6, [place] % (Auto) 7.2, Eos % (Auto) 0.5, Baso % (Auto) 1.3, Neut # (Auto) 10.9 H, Lymph # (Auto) 1.6, [place] # (Auto) 1.0, Eos # (Auto) 0.1, Baso # (Auto) 0.2, Sodium 133 L, Potassium 4.4, Chloride 95 L, Carbon Dioxide 18 L, Anion Gap 24.4 H, BUN 11, Creatinine 0.80, Estimated Creat Clear 133, Estimated GFR 86, Est GFR ( Amer) 104, Glucose 496 H*, Hemoglobin A1c 9.3 H, Calcium 9.7, Magnesium 1.5 L, Total Bilirubin 1.3, AST 28, ALT 22, Alkaline Phosphatase 107, Total Protein 9.3 H, Albumin 5.2 H, Globulin 4.1 H, Albumin/Globulin Ratio 1.3, Lipase 26, TSH 3.33, Thyroxine (T4) 16.3 H, Serum HCG, Qual Negative, Acetone Level Small, HCV Ab ROZ w/Rflx PCR Qn Negative, HIV Ag/Ab Combo Qual Negative 11/22/24 06:36: Acetone Level Small 11/22/24 06:40: Sodium 133 L, Potassium 4.3, Chloride 98, Carbon Dioxide 18 L, Anion Gap 21.3 H, BUN 11, Creatinine 0.60 D, Estimated Creat Clear 179, Estimated GFR 120, Est GFR ( Amer) 145 D, Glucose 374 H D, Calcium 8.9, Phosphorus 4.5, Magnesium 2.1 D, Chlamy pneumoniae PCR Not detected, Adenovirus (PCR) Not detected, B. pertussis DNA (PCR) Not detected, Coronavirus OC43 (PCR) Detected A, Coronavirus HKU1 (PCR) Not detected, Coronavirus 229E (PCR) Not detected, SARS-CoV-2 (PCR) Not detected, Coronavirus NL63 (PCR) Not detected, Human Metapneumovir PCR Not detected, Influenza A (H1) PCR Not detected, Influ A (H1N1/09) PCR Not detected, Influenza A (H3) PCR Not detected, Influenza Type A (PCR) Not detected, Influenza Type B (PCR) Not detected, M. pneumoniae (PCR) Not detected, Parainfluenza 1 (PCR) Not detected, Parainfluenza 2 (PCR) Not detected, Parainfluenza 3 (PCR) Not detected, Parainfluenza 4 (PCR) Not detected, RSV (PCR) Not detected, Entero/Rhino (PCR) Not detected 11/22/24 07:07: POC Glucose 292 H 11/22/24 07:57: POC Glucose 214 H I & O for Last 24 hours: Intake & Output 11/19/24 11/20/24 11/21/24 11/22/24 23:59 23:59 23:59 23:59 Weight 80.286 kg Constitutional Constitutional: no acute distress, obese, chronically ill appearing and cooperative *Routine HEENT Exam Head: Present normocephalic Eye: Present EOMI and PERRL ENT: Present mucous membranes moist *Routine Neck Exam Neck: Present supple; Absent lymphadenopathy *Routine Respiratory Exam Respiratory: Present CTA bilaterally; Absent rhonchi *Routine Cardiovascular Exam Cardiovascular: Present RRR *Routine Abdominal Exam Abdominal: Present soft and normoactive bowel sounds; Absent tenderness *Routine Rectal Exam Patient deferred: visual exam *Routine Exam Patient deferred: external exam *Routine Extremities Exam Extremities: Absent cyanosis, clubbing or edema *Routine Skin Exam Skin: Present warm; Absent rash *Routine Neurological Exam Neurological: Present alert, oriented X3 and moving all extremities Results Data Completed and Pending Labs on day of discharge: Labs from last 24 hours 11/22/24 11/22/24 11/22/24 07:57 07:07 06:40 WBC RBC Hgb Hct MCV MCH MCHC RDW Plt Count MPV Neut % (Auto) Lymph % (Auto) [place] % (Auto) Eos % (Auto) Baso % (Auto) Neut # (Auto) Lymph # (Auto) [place] # (Auto) Eos # (Auto) Baso # (Auto) VBG pH VBG pCO2 VBG pO2 VBG HCO3 VBG Total CO2 VBG O2 Saturation VBG Base Excess VBG Lactic Acid Sodium 133 L Potassium 4.3 Chloride 98 Carbon Dioxide 18 L Anion Gap 21.3 H BUN 11 Creatinine 0.60 D Estimated Creat Clear 179 Estimated GFR 120 Est GFR ( Amer) 145 D Glucose 374 H D POC Glucose 214 H 292 H Hemoglobin A1c Calcium 8.9 Phosphorus 4.5 Magnesium 2.1 D Total Bilirubin AST ALT Alkaline Phosphatase Total Protein Albumin Globulin Albumin/Globulin Ratio Lipase TSH Thyroxine (T4) Serum HCG, Qual Acetone Level Chlamy pneumoniae PCR Not detected Adenovirus (PCR) Not detected B. pertussis DNA (PCR) Not detected Coronavirus OC43 (PCR) Detected A Coronavirus HKU1 (PCR) Not detected Coronavirus 229E (PCR) Not detected SARS-CoV-2 (PCR) Not detected Coronavirus NL63 (PCR) Not detected HCV Ab ROZ w/Rflx PCR Qn HIV Ag/Ab Combo Qual Human Metapneumovir PCR Not detected Influenza A (H1) PCR Not detected Influ A (H1N1/09) PCR Not detected Influenza A (H3) PCR Not detected Influenza Type A (PCR) Not detected Influenza Type B (PCR) Not detected M. pneumoniae (PCR) Not detected Parainfluenza 1 (PCR) Not detected Parainfluenza 2 (PCR) Not detected Parainfluenza 3 (PCR) Not detected Parainfluenza 4 (PCR) Not detected RSV (PCR) Not detected Entero/Rhino (PCR) Not detected 11/22/24 11/22/24 11/22/24 06:36 05:30 05:21 WBC 13.8 H RBC 5.11 Hgb 15.8 Hct 45.4 MCV 88.8 MCH 30.9 MCHC 34.8 RDW 11.0 L Plt Count 296 MPV 10.0 Neut % (Auto) 79.0 Lymph % (Auto) 11.6 [place] % (Auto) 7.2 Eos % (Auto) 0.5 Baso % (Auto) 1.3 Neut # (Auto) 10.9 H Lymph # (Auto) 1.6 [place] # (Auto) 1.0 Eos # (Auto) 0.1 Baso # (Auto) 0.2 VBG pH 7.26 L VBG pCO2 41.3 VBG pO2 34.6 VBG HCO3 18.1 L VBG Total CO2 19.3 L VBG O2 Saturation 66.1 VBG Base Excess -9.0 L VBG Lactic Acid 3.9 H Sodium 133 L Potassium 4.4 Chloride 95 L Carbon Dioxide 18 L Anion Gap 24.4 H BUN 11 Creatinine 0.80 Estimated Creat Clear 133 Estimated GFR 86 Est GFR ( Amer) 104 Glucose 496 H* POC Glucose Hemoglobin A1c 9.3 H Calcium 9.7 Phosphorus Magnesium 1.5 L Total Bilirubin 1.3 AST 28 ALT 22 Alkaline Phosphatase 107 Total Protein 9.3 H Albumin 5.2 H Globulin 4.1 H Albumin/Globulin Ratio 1.3 Lipase 26 TSH 3.33 Thyroxine (T4) 16.3 H Serum HCG, Qual Negative Acetone Level Small Small Chlamy pneumoniae PCR Adenovirus (PCR) B. pertussis DNA (PCR) Coronavirus OC43 (PCR) Coronavirus HKU1 (PCR) Coronavirus 229E (PCR) SARS-CoV-2 (PCR) Coronavirus NL63 (PCR) HCV Ab ROZ w/Rflx PCR Qn Negative HIV Ag/Ab Combo Qual Negative Human Metapneumovir PCR Influenza A (H1) PCR Influ A (H1N1/09) PCR Influenza A (H3) PCR Influenza Type A (PCR) Influenza Type B (PCR) M. pneumoniae (PCR) Parainfluenza 1 (PCR) Parainfluenza 2 (PCR) Parainfluenza 3 (PCR) Parainfluenza 4 (PCR) RSV (PCR) Entero/Rhino (PCR) DS: Diagnosis Discharge Diagnosis (1) DKA (diabetic ketoacidosis): Status: Acute Code(s): E11.10 - Type 2 diabetes mellitus with ketoacidosis without coma Qualifiers: Diabetes mellitus complication detail: without coma Diabetes mellitus type: type 1 Qualified Code(s): E10.10 - Type 1 diabetes mellitus with ketoacidosis without coma (2) Nausea and vomiting: Status: Acute Code(s): R11.2 - Nausea with vomiting, unspecified Qualifiers: Vomiting type: unspecified Qualified Code(s): R11.2 - Nausea with vomiting, unspecified (3) Leukocytosis: Status: Acute Code(s): D72.829 - Elevated white blood cell count, unspecified (4) Elevated lactic acid level: Status: Acute Code(s): R79.89 - Other specified abnormal findings of blood chemistry (5) Hypomagnesemia: Status: Acute Code(s): E83.42 - Hypomagnesemia (6) Epigastric pain: Status: Acute Code(s): R10.13 - Epigastric pain (7) Cough: Status: Acute Code(s): R05.9 - Cough, unspecified (8) Tobacco abuse: Status: Acute Code(s): Z72.0 - Tobacco use Meds Home Medications and Allergies Home Medications ?Medication ?Instructions ?Recorded ?Confirmed ?Type pen needle, diabetic 32 gauge x #100 ea 03/24/22 07/15/24 Rx 1/4 (BD Ultra-Fine Micro Pen Needle) blood-glucose transmitter (Dexcom #1 ea 03/15/23 07/15/24 Rx G6 Transmitter device) insulin syringe-needle U-100 1 mL #100 ea 03/15/23 07/15/24 Rx 31 gauge x 5/16 (Sure Comfort Insulin Syringe) blood-glucose sensor (Dexcom G6 #3 ea 04/18/23 07/15/24 Rx Sensor device) levothyroxine 88 mcg tablet 88 mcg PO DAILY 04/28/23 11/22/24 History (Synthroid) multivitamin 1 tab PO DAILY 07/22/23 08/06/24 History ascorbic acid (vitamin C) 1,000 mg 1 g PO DAILY 08/06/24 08/06/24 History tablet (Vitamin C) cholecalciferol (vitamin D3) 50 50 mcg PO DAILY 08/06/24 08/06/24 History mcg (2,000 unit) capsule (Vitamin D3) insulin glargine 100 unit/mL 47 unit SQ HS Diabetes 08/06/24 08/06/24 History subcutaneous solution insulin lispro 100 unit/mL 0 unit SQ AC Diabetes 08/06/24 08/06/24 History subcutaneous cartridge New Prescriptions to Start Prescriptions: Allergies Allergy/AdvReac Type Severity Reaction Status Date / Time No Known Allergies Allergy Verified 08/06/24 11:14 Discharge Plan Disposition Patient Disposition: Left Against Medical Advice Condition: Fair Patient Discharge Instructions Print Language: Uz[place] Providers Admit Provider: Ye Suero Attending Provider: Ye Suero
== END 2024-11-22 08:35 | disposition left against medical advice (07) ==
LOC: ER 06:33 → ICU 10:21
PROVIDERS: Nurse Practitioner Family; Admitting Provider Internal Medicine Adolescent Medicine; Emergency Provider Emergency Medicine; PCP Family Medicine; Visit Provider Internal Medicine Adolescent Medicine
DX: E10.10 Type 1 diabetes mellitus with ketoacidosis without coma (principal); E83.42 Hypomagnesemia; D72.829 Elevated white blood cell count, unspecified; R79.89 Other specified abnormal findings of blood chemistry; R10.13 Epigastric pain; R05.9 Cough, unspecified; E03.9 Hypothyroidism, unspecified; F31.9 Bipolar disorder, unspecified; F43.10 Post-traumatic stress disorder, unspecified; F41.1 Generalized anxiety disorder; R74.02 Elevation of levels of lactic acid dehydrogenase [LDH]; F17.210 Nicotine dependence, cigarettes, uncomplicated; Z53.29 Procedure and treatment not carried out because of patient's decision for other reasons; Z79.890 Hormone replacement therapy; Z79.899 Other long term (current) drug therapy
CPT/HCPCS: 96361; 96374; 96375; 0223U; 71046; 80048; 80053; 82009; 82803; 82962; 83036; 83690; 83735; 84100; 84436; 84443; 84703; 85025; 86803; 87040; 87389; 87633; 93005; G0378; J2405; J3475; J7120